=== PATIENT | female | born 1965 | race Two or more races ===

== ENCOUNTER → 2019-06-10 | Outpatient (CLI) | payer OTHER ==
[2019-06-10 11:10] LABS: Basophils # (auto) 0.1 10 ^3/uL (0-0.2); Basophils % (auto) 1.9 % (0.0-2.0); Eosinophils # (auto) 0.1 10 ^3/uL (0-0.8); Eosinophils % (auto) 2.5 % (0.0-7.0); Hematocrit 41.3 % (36.0-46.0); Hemoglobin 14.1 g/dL (12.2-16.2); Lymphocytes # (auto) 1.1 10 ^3/uL (0.4-5.4); Lymphocytes % (auto) 18.5 % (10.0-50.0); Mean Corpuscular Hgb Conc. 34.1 g/dL (32.0-36.0); Mean Corpuscular Volume 99.8 fL (80.0-100.0); Monocytes # (auto) 0.5 10 ^3/uL (0-1.3); Monocytes % (auto) 9.3 % (0.0-12.0); Neutrophils # (auto) 3.9 10 ^3/uL (1.6-8.6); Neutrophils % (auto) 67.8 % (37.0-80.0); Nucleated Red Blood Cells % 0.1 %; Platelet Count (auto) 295 10^3/uL (140-450); Red Blood Cells 4.14 10^6/uL (4.0-5.20); Red Cell Distribution Width 16.1 % (11.8-14.3); White Blood Cell 5.8 10^3/uL (4.4-10.8)
[2019-06-10 11:56] LABS: Free T4 (Free Thyroxine) 0.79 ng/dL (0.89-1.76)
[2019-06-10 11:57] LABS: Folate (Folic Acid) 15.07 ng/mL (5.38-24)
[2019-06-10 11:58] LABS: Albumin 3.8 g/dL (3.4-5.0); Calcium 9.2 mg/dL (8.5-10.1); Potassium 4.5 mmol/L (3.5-5.1)
[2019-06-10 12:05] LABS: BUN/Creatinine Ratio 7.9; Bilirubin, Total 0.7 mg/dL (0.2-1.0); CRP High Sensitivity 0.39 mg/dL (< 0.3); Phosphorus 2.9 mg/dL (2.5-4.90); Total Protein 8.3 g/dL (6.4-8.2)
[2019-06-10 12:09] LABS: Hepatitis B Surface Antibody Negative
[2019-06-10 12:47] LABS: Hepatitis A Total Antibody Positive
[2019-06-10 13:11] LABS: Hepatitis B Core Total AB Negative; Hepatitis B Surface Antigen Negative (Negative); Hepatitis C Antibody Negative (Negative)
== END | disposition home or self-care (01) ==
LOC: LAB 10:37
PROVIDERS: ATTEND Internal Medicine
DX: M79.10 Myalgia, unspecified site (principal); R20.2 Paresthesia of skin; R23.9 Unspecified skin changes
CPT/HCPCS: 36415; 80053; 80061; 80069; 82274; 82306; 82607; 82746; 83036; 84439; 84443; 85025; 85652; 86141; 86200; 86431; 86704; 86706; 86708; 86803; 87340

== ENCOUNTER 2019-07-26 15:14 | Inpatient (IN) | payer OTHER ==
[~2019-07-26] VITALS: Ht 175.3 cm; Wt 83.7 kg
[2019-07-26] MEDS ORDERED: SODIUM CHLORIDE 0.9% 1,000 ML IV SCH (15:42)
[2019-07-26] MEDS ORDERED: DEXTROSE (50%) 50ML SYRG IV PRN (15:45)
[2019-07-26] MEDS ORDERED: HYDROcodone-ACET 5/325MG TAB PO PRN (15:45)
[2019-07-26] MEDS ORDERED: HYDROcodone-ACET 10/325MG TAB PO ONE (15:45)
[2019-07-26] MEDS ORDERED: NITROGLYCERIN 0.4 MG SL TAB SL PRN ×2 (15:45→17:00)
[2019-07-26] MEDS ORDERED: ZOLPIDEM TARTRATE 5 MG TAB PO PRN (15:45)
[2019-07-26] MEDS ORDERED: ONDANSETRON HCL 4 MG/2 ML VIAL IV PRN (15:45)
[2019-07-26 16:52] LABS: Basophils # (auto) 0.1 10 ^3/uL (0-0.2); Basophils % (auto) 1.4 % (0.0-2.0); Eosinophils # (auto) 0.1 10 ^3/uL (0-0.8); Eosinophils % (auto) 1.2 % (0.0-7.0); Hematocrit 37.6 % (36.0-46.0); Hemoglobin 13.2 g/dL (12.2-16.2); Lymphocytes # (auto) 1.4 10 ^3/uL (0.4-5.4); Lymphocytes % (auto) 18.2 % (10.0-50.0); Mean Corpuscular Hemoglobin 33.5 pg (28.0-32.0); Mean Corpuscular Volume 95.7 fL (80.0-100.0); Monocytes # (auto) 0.9 10 ^3/uL (0-1.3); Monocytes % (auto) 11.8 % (0.0-12.0); Neutrophils # (auto) 5.2 10 ^3/uL (1.6-8.6); Neutrophils % (auto) 67.4 % (37.0-80.0); Platelet Count (auto) 296 10^3/uL (140-450); Red Blood Cells 3.93 10^6/uL (4.0-5.20); Red Cell Distribution Width 16.2 % (11.8-14.3); White Blood Cell 7.7 10^3/uL (4.4-10.8)
[2019-07-26] MEDS ORDERED: ACCU-CHEK COMFORT CURVE STRIP VI SCH (17:00)
[2019-07-26] MEDS ORDERED: InsuLIN REG 1unit/0.01ml Soln (100units/ml) SC SCH (17:00)
[2019-07-26] MEDS ORDERED: MORPHINE SULF INJ 2 MG/ML SYRINGE 1ML IV PRN (17:00)
[2019-07-26 17:05] LABS: INR 0.98 (0.9-1.15); Partial Thromboplastin Time 28.5 sec (23.64-32.05)
[2019-07-26 17:08] LABS: Albumin 3.8 g/dL (3.4-5.0); Calcium 9.3 mg/dL (8.5-10.1); Potassium 3.9 mmol/L (3.5-5.1)
[2019-07-26 17:11] LABS: BUN/Creatinine Ratio 14.3; Bilirubin, Total 0.6 mg/dL (0.2-1.0); Total Protein 7.8 g/dL (6.4-8.2)
[2019-07-26] MEDS: MORPHINE SULF INJ 2 MG/ML SYRINGE 1ML IV PRN ×2 (18:17→22:49)
[2019-07-26 18:30] VITALS: BP 116/75
[2019-07-26] MEDS ORDERED: APRE1TAB3 PO (18:45)
[2019-07-26] MEDS ORDERED: LEVO25TA49 PO (19:13)
[2019-07-26] MEDS ORDERED: SIMV-13 PO (19:13)
[2019-07-26] MEDS: HYDROcodone-ACET 5/325MG TAB PO PRN (19:50)
[2019-07-26 22:00] VITALS: BP 134/80
[2019-07-26] MEDS ORDERED: ATORVASTATIN 20 MG TAB PO SCH (22:00)
[2019-07-26 23:32] LABS: Urine Bacteria FEW /hpf (None Seen); Urine Blood Negative /uL (Negative); Urine Mucus FEW (None Seen); Urine Specific Gravity 1.024 (1.001-1.035); Urine WBC 2 /hpf (0 - 5)
[2019-07-27] MEDS: MORPHINE SULF INJ 2 MG/ML SYRINGE 1ML IV PRN (03:48)
[2019-07-27 05:00] VITALS: BP 91/51
[2019-07-27] MEDS: HYDROcodone-ACET 5/325MG TAB PO PRN ×2 (06:41→15:56)
[2019-07-27] MEDS ORDERED: LEVOTHYROXINE SODIUM 50 MCG TAB PO SCH (07:00)
[2019-07-27] MEDS: FAMOTIDINE (10MG/ML) 2ML VL IV SCH (08:09)
[2019-07-27 08:31] VITALS: BP 95/60
[2019-07-27] MEDS ORDERED: ADENOSINE 68 MG in GIVE UN-DILUTED 0 ML IV STA (08:33)
[2019-07-27] MEDS ORDERED: CLOPIDOGREL BISULFATE 75 MG TAB PO SCH (10:00)
[2019-07-27] MEDS ORDERED: ASPirin 81 mg TAB PO SCH (10:00)
[2019-07-27] MEDS ORDERED: DOCUSATE SOD 100 MG CAP PO SCH (10:00)
[2019-07-27] MEDS ORDERED: ENOXAPARIN SOD 40 MG/0.4 ML SYRINGE SC SCH (10:00)
[2019-07-27] MEDS ORDERED: KETOROLAC TROMETH 30 MG/ML 1ML VIAL IV ONE (11:00)
[2019-07-27] MEDS: SODIUM CHLORIDE 0.9% 1,000 ML IV SCH ×2 (11:00→18:57)
[2019-07-27 11:25] VITALS: BP 86/61
[2019-07-27] MEDS: POLYETHYLENE GLYCOL 17 GM PWDR PO SCH (14:10)
[2019-07-27] MEDS: HYDROmorphone HCL 2 MG/ML VL IV PRN ×2 (14:10→21:00)
[2019-07-27] MEDS ORDERED: ENOXAPARIN SOD 40 MG/0.4 ML SYRINGE SC ONE (14:30)
[2019-07-27 16:52] VITALS: BP 101/66
[2019-07-27] MEDS: ATORVASTATIN 20 MG TAB PO SCH (21:01)
[2019-07-27 21:20] VITALS: BP 103/71
[2019-07-28] VITALS (7 sets, daily range): BP systolic 91–109; BP diastolic 57–66
[2019-07-28] MEDS ORDERED: SODIUM CHLORIDE 0.9% 1,000 ML IV SCH (00:01)
[2019-07-28] MEDS: HYDROmorphone HCL 2 MG/ML VL IV PRN ×5 (02:09→22:15)
[2019-07-28] MEDS: SODIUM CHLORIDE 0.9% 1,000 ML IV SCH ×3 (02:10→19:13)
[2019-07-28] MEDS: LEVOTHYROXINE SODIUM 25 MCG TAB PO SCH (05:30)
[2019-07-28] MEDS: HYDROcodone-ACET 5/325MG TAB PO PRN ×2 (05:31→11:27)
[2019-07-28 06:33] LABS: Basophils # (auto) 0.1 10 ^3/uL (0-0.2); Basophils % (auto) 0.9 % (0.0-2.0); Eosinophils # (auto) 0.1 10 ^3/uL (0-0.8); Eosinophils % (auto) 1.2 % (0.0-7.0); Hematocrit 34.2 % (36.0-46.0); Hemoglobin 11.9 g/dL (12.2-16.2); Lymphocytes # (auto) 1.3 10 ^3/uL (0.4-5.4); Lymphocytes % (auto) 18.7 % (10.0-50.0); Mean Corpuscular Hemoglobin 33.7 pg (28.0-32.0); Mean Corpuscular Hgb Conc. 34.9 g/dL (32.0-36.0); Mean Corpuscular Volume 96.3 fL (80.0-100.0); Monocytes # (auto) 0.8 10 ^3/uL (0-1.3); Monocytes % (auto) 11.4 % (0.0-12.0); Neutrophils # (auto) 4.6 10 ^3/uL (1.6-8.6); Neutrophils % (auto) 67.8 % (37.0-80.0); Platelet Count (auto) 246 10^3/uL (140-450); Red Blood Cells 3.55 10^6/uL (4.0-5.20); Red Cell Distribution Width 16.3 % (11.8-14.3); White Blood Cell 6.8 10^3/uL (4.4-10.8)
[2019-07-28 06:51] LABS: BUN/Creatinine Ratio 12.5; Calcium 7.9 mg/dL (8.5-10.1); Potassium 3.9 mmol/L (3.5-5.1)
[2019-07-28 06:58] LABS: INR 0.98 (0.9-1.15); Partial Thromboplastin Time 29.1 sec (23.64-32.05)
[2019-07-28] MEDS ORDERED: IOHEXOL 350 MG/ML 100ML IJ ONE (08:48)
[2019-07-28] MEDS ORDERED: LIDOCAINE 2%HCL (LOCAL ANESTH.) INJ 20ML MDV ONE (08:48)
[2019-07-28] MEDS ORDERED: HYDROmorphone HCL 2 MG/ML VL ONE (09:28)
[2019-07-28] MEDS ORDERED: ANGIOMAX 250 MG VIAL IV ONE (09:40)
[2019-07-28] MEDS ORDERED: MIDAZOLAM HCL 1MG/1ML-2 ML VIAL ONE (09:40)
[2019-07-28] MEDS ORDERED: SODIUM CHL 0.9% 0 ML ONE (09:40)
[2019-07-28] MEDS ORDERED: HEPARIN SODIUM (PORCINE) 5000 UNITS/ML 1ML VIAL ONE (09:45)
[2019-07-28] MEDS ORDERED: VERAPAMIL 2.5MG/ML INJ 2ML VIAL IV ONE (09:45)
[2019-07-28] MEDS ORDERED: ENOXAPARIN SOD 40 MG/0.4 ML SYRINGE SC SCH (10:00)
[2019-07-28] MEDS: FAMOTIDINE (10MG/ML) 2ML VL IV SCH (11:27)
[2019-07-28] MEDS: POLYETHYLENE GLYCOL 17 GM PWDR PO SCH (11:28)
[2019-07-28] MEDS: HYDROcodone-ACET 7.5/325MG TAB PO PRN (20:34)
[2019-07-28] MEDS: ATORVASTATIN 20 MG TAB PO SCH (22:14)
[2019-07-29] MEDS: HYDROmorphone HCL 2 MG/ML VL IV PRN ×10 (02:04→22:17)
[2019-07-29] MEDS: SODIUM CHLORIDE 0.9% 1,000 ML IV SCH ×3 (03:09→22:16)
[2019-07-29] MEDS: HYDROcodone-ACET 7.5/325MG TAB PO PRN (03:54)
[2019-07-29 05:27] VITALS: BP 102/66
[2019-07-29] MEDS: LEVOTHYROXINE SODIUM 25 MCG TAB PO SCH (06:28)
[2019-07-29] MEDS ORDERED: ROPIVACAINE 0.5% (5MG/ML) 20ML AMPULE IJ ONE (08:13)
[2019-07-29] MEDS ORDERED: ceFAZolin 1GM/50ML 50 ML IV ONE (08:13)
[2019-07-29] MEDS ORDERED: SUCCINYLCHOLINE CHLORIDE 20 MG/ML 10ML VIAL IV ONE (08:20)
[2019-07-29] MEDS ORDERED: LIDOCAINE 1% HCL (LOCAL ANESTH.) INJ 20ML MDV ONE (08:20)
[2019-07-29] MEDS ORDERED: MIDAZOLAM HCL 1MG/1ML-2 ML VIAL ONE (08:23)
[2019-07-29] MEDS ORDERED: PROPOFOL 10 MG/ML 20 ML IV ONE (08:24)
[2019-07-29] MEDS ORDERED: ROCURONIUM 10MG/ML 10ML VIAL IV ONE (08:25)
[2019-07-29] MEDS ORDERED: METOCLOPRAMIDE HCL 5MG/ml INJ 2ml VIAL ONE (08:27)
[2019-07-29] MEDS ORDERED: fentaNYL CITRATE 100 MCG/2 ML VL ONE (08:39)
[2019-07-29] MEDS ORDERED: HYDROmorphone HCL 2 MG/ML VL IV PRN (08:45)
[2019-07-29] MEDS ORDERED: ePHEDrine SULFATE 50 MG/ML AMP IV PRN (08:45)
[2019-07-29] MEDS ORDERED: ONDANSETRON HCL 4 MG/2 ML VIAL IV PRN ×2 (08:45→10:30)
[2019-07-29] MEDS ORDERED: NALOXONE HCL 0.4 MG/ML VIAL IV PRN (08:45)
[2019-07-29 08:55] VITALS: BP 96/62
[2019-07-29] MEDS ORDERED: HYDROcodone-ACET 10/325MG TAB PO PRN (10:30)
[2019-07-29] MEDS: FAMOTIDINE (10MG/ML) 2ML VL IV SCH (12:58)
[2019-07-29] MEDS: POLYETHYLENE GLYCOL 17 GM PWDR PO SCH (12:58)
[2019-07-29 13:00] VITALS: BP 96/62
[2019-07-29] MEDS: ceFAZolin 1GM/50ML 50 ML IV SCH ×2 (14:05→22:16)
[2019-07-29 17:00] VITALS: BP 105/67
[2019-07-29] MEDS: HYDROcodone-ACET 5/325MG TAB PO PRN ×2 (18:19→22:58)
[2019-07-29 21:46] VITALS: BP 108/63
[2019-07-29] MEDS: ATORVASTATIN 20 MG TAB PO SCH (22:17)
[2019-07-30] MEDS: HYDROmorphone HCL 2 MG/ML VL IV PRN ×7 (00:10→16:25)
[2019-07-30] MEDS: SODIUM CHLORIDE 0.9% 1,000 ML IV SCH ×2 (03:00→08:41)
[2019-07-30] MEDS: HYDROcodone-ACET 5/325MG TAB PO PRN ×2 (03:05→13:23)
[2019-07-30 04:59] VITALS: BP 101/54
[2019-07-30] MEDS: LEVOTHYROXINE SODIUM 25 MCG TAB PO SCH (06:04)
[2019-07-30] MEDS: ceFAZolin 1GM/50ML 50 ML IV SCH ×2 (06:04→14:56)
[2019-07-30 07:22] LABS: Basophils # (auto) 0.1 10 ^3/uL (0-0.2); Basophils % (auto) 0.6 % (0.0-2.0); Eosinophils # (auto) 0 10 ^3/uL (0-0.8); Eosinophils % (auto) 0.3 % (0.0-7.0); Hematocrit 35.5 % (36.0-46.0); Hemoglobin 12.5 g/dL (12.2-16.2); Lymphocytes # (auto) 0.9 10 ^3/uL (0.4-5.4); Lymphocytes % (auto) 9.5 % (10.0-50.0); Mean Corpuscular Hgb Conc. 35.1 g/dL (32.0-36.0); Mean Corpuscular Volume 96.9 fL (80.0-100.0); Monocytes # (auto) 1.3 10 ^3/uL (0-1.3); Neutrophils # (auto) 7.6 10 ^3/uL (1.6-8.6); Neutrophils % (auto) 76.6 % (37.0-80.0); Nucleated Red Blood Cells % 0.1 %; Platelet Count (auto) 270 10^3/uL (140-450); Red Blood Cells 3.67 10^6/uL (4.0-5.20); Red Cell Distribution Width 15.9 % (11.8-14.3); White Blood Cell 9.9 10^3/uL (4.4-10.8)
[2019-07-30] MEDS: FAMOTIDINE (10MG/ML) 2ML VL IV SCH (08:40)
[2019-07-30] MEDS: POLYETHYLENE GLYCOL 17 GM PWDR PO SCH (08:41)
[2019-07-30 09:00] VITALS: BP 105/66
[2019-07-30 13:00] VITALS: BP 107/68
[2019-07-30 16:27] VITALS: BP 117/65
[2019-07-30 16:46] VITALS: BP 107/68
== END 2019-07-30 18:12 | disposition home or self-care (01) | DRG 494 ==
LOC: ER 15:14 → WEST WING 15:15 → TELE-WESTW 07-27 21:28
PROVIDERS: ADMIT Nurse Practitioner Acute Care; ATTEND Internal Medicine
PROC: 4A023N7 Measurement of Cardiac Sampling and Pressure, Left Heart, Percutaneous Approach (ICD-10-PCS; 2019-07-28)
PROC: B2111ZZ Fluoroscopy of Multiple Coronary Arteries using Low Osmolar Contrast (ICD-10-PCS; 2019-07-28)
PROC: B2151ZZ Fluoroscopy of Left Heart using Low Osmolar Contrast (ICD-10-PCS; 2019-07-28)
PROC: 0MQQ0ZZ Repair Right Ankle Bursa and Ligament, Open Approach (ICD-10-PCS; 2019-07-29)
PROC: 0SSF0ZZ Reposition Right Ankle Joint, Open Approach (ICD-10-PCS; 2019-07-29)
PROC: 0QSJ04Z Reposition Right Fibula with Internal Fixation Device, Open Approach (ICD-10-PCS; principal; 2019-07-29 08:25)
DX: S82.61XA Displaced fracture of lateral malleolus of right fibula, initial encounter for closed fracture (principal); L40.9 Psoriasis, unspecified; E78.5 Hyperlipidemia, unspecified; E03.9 Hypothyroidism, unspecified; Z87.891 Personal history of nicotine dependence; X50.1XXA Overexertion from prolonged static or awkward postures, initial encounter; Y93.89 Activity, other specified; Y92.89 Other specified places as the place of occurrence of the external cause; Y99.8 Other external cause status
CPT/HCPCS: 36415; 71045; 73600; 76001; 78452; 80048; 80053; 81001; 81025; 85025; 85610; 85730; 86850; 86900; 86901; 93017; 93306; 93458; 97163; 99152; 99153; C1713; G0378; J0153; J0330; J0690; J1885; J2001; J2250; J2704; J3490

== ENCOUNTER → 2020-03-06 | Outpatient (CLI) | payer OTHER ==
[~2020-03-06] MED LIST: APRE1TAB3 PO; LEVO25TA49 PO; SIMV-13 PO
[2020-03-06 08:44] LABS: Basophils # (auto) 0 10 ^3/uL (0-0.2); Basophils % (auto) 0.7 % (0.0-2.0); Eosinophils # (auto) 0 10 ^3/uL (0-0.8); Eosinophils % (auto) 0.4 % (0.0-7.0); Hematocrit 41.4 % (36.0-46.0); Hemoglobin 14.2 g/dL (12.2-16.2); Lymphocytes # (auto) 1.4 10 ^3/uL (0.4-5.4); Lymphocytes % (auto) 29.4 % (10.0-50.0); Mean Corpuscular Hemoglobin 32.2 pg (28.0-32.0); Mean Corpuscular Hgb Conc. 34.3 g/dL (32.0-36.0); Monocytes # (auto) 0.6 10 ^3/uL (0-1.3); Neutrophils # (auto) 2.7 10 ^3/uL (1.6-8.6); Neutrophils % (auto) 56.5 % (37.0-80.0); Nucleated Red Blood Cells % 0.2 %; Platelet Count (auto) 222 10^3/uL (140-450); Red Cell Distribution Width 16.3 % (11.8-14.3); White Blood Cell 4.8 10^3/uL (4.4-10.8)
[2020-03-06 09:46] LABS: Albumin 3.8 g/dL (3.4-5.0); BUN/Creatinine Ratio 8.2; Calcium 8.9 mg/dL (8.5-10.1); Potassium 4.7 mmol/L (3.5-5.1)
[2020-03-06 09:50] LABS: Bilirubin, Total 0.5 mg/dL (0.2-1.0); Total Protein 8.1 g/dL (6.4-8.2)
== END | disposition home or self-care (01) ==
LOC: LAB 08:22
PROVIDERS: ATTEND Internal Medicine
DX: E03.9 Hypothyroidism, unspecified (principal); E78.5 Hyperlipidemia, unspecified
CPT/HCPCS: 36415; 80053; 80061; 84439; 84443; 85025

== ENCOUNTER → 2020-05-19 | Outpatient (CLI) | payer OTHER ==
[2020-05-19 13:51] LABS: Basophils # (auto) 0.1 10 ^3/uL (0-0.2); Basophils % (auto) 0.9 % (0.0-2.0); Eosinophils # (auto) 0.1 10 ^3/uL (0-0.8); Eosinophils % (auto) 1.6 % (0.0-7.0); Hemoglobin 13.7 g/dL (12.2-16.2); Lymphocytes # (auto) 1.2 10 ^3/uL (0.4-5.4); Lymphocytes % (auto) 21.1 % (10.0-50.0); Mean Corpuscular Hgb Conc. 35.9 g/dL (32.0-36.0); Mean Corpuscular Volume 94.6 fL (80.0-100.0); Monocytes # (auto) 0.6 10 ^3/uL (0-1.3); Monocytes % (auto) 10.7 % (0.0-12.0); Neutrophils # (auto) 3.8 10 ^3/uL (1.6-8.6); Neutrophils % (auto) 65.7 % (37.0-80.0); Platelet Count (auto) 306 10^3/uL (140-450); Red Blood Cells 4.02 10^6/uL (4.0-5.20); Red Cell Distribution Width 15.9 % (11.8-14.3); White Blood Cell 5.9 10^3/uL (4.4-10.8)
[2020-05-19 14:32] LABS: Albumin 4.1 g/dL (3.4-5.0); Potassium 3.9 mmol/L (3.5-5.1)
[2020-05-19 14:35] LABS: Bilirubin, Total 0.6 mg/dL (0.2-1.0); Total Protein 8.6 g/dL (6.4-8.2)
== END | disposition home or self-care (01) ==
LOC: LAB 13:33
PROVIDERS: ATTEND Internal Medicine
DX: E03.9 Hypothyroidism, unspecified (principal)
CPT/HCPCS: 36415; 80053; 82274; 84439; 84443; 85025

== ENCOUNTER → 2020-08-04 | Outpatient (CLI) | payer OTHER ==
[~2020-08-04] MED LIST changes: -APRE1TAB3 PO; +APRE1TAB4 PO
== END | disposition home or self-care (01) ==
LOC: LAB 11:45
PROVIDERS: ATTEND Internal Medicine
DX: E03.9 Hypothyroidism, unspecified (principal)
CPT/HCPCS: 36415; 84439; 84443

== ENCOUNTER → 2020-11-03 | Outpatient (CLI) | payer OTHER ==
[2020-11-03 16:47] LABS: Basophils # (auto) 0.1 10 ^3/uL (0-0.2); Basophils % (auto) 1.2 % (0.0-2.0); Eosinophils # (auto) 0.1 10 ^3/uL (0-0.8); Eosinophils % (auto) 1.3 % (0.0-7.0); Hematocrit 37.8 % (36.0-46.0); Hemoglobin 13.5 g/dL (12.2-16.2); Lymphocytes # (auto) 2.5 10 ^3/uL (0.4-5.4); Lymphocytes % (auto) 27.4 % (10.0-50.0); Mean Corpuscular Hemoglobin 32.7 pg (28.0-32.0); Mean Corpuscular Hgb Conc. 35.8 g/dL (32.0-36.0); Mean Corpuscular Volume 91.3 fL (80.0-100.0); Monocytes # (auto) 0.9 10 ^3/uL (0-1.3); Monocytes % (auto) 10.1 % (0.0-12.0); Neutrophils # (auto) 5.5 10 ^3/uL (1.6-8.6); Nucleated Red Blood Cells % 0.4 %; Red Blood Cells 4.14 10^6/uL (4.0-5.20); Red Cell Distribution Width 17.7 % (11.8-14.3); White Blood Cell 9.2 10^3/uL (4.4-10.8)
[2020-11-03 17:06] LABS: Albumin 4.1 g/dL (3.4-5.0); BUN/Creatinine Ratio 24.4; Calcium 8.4 mg/dL (8.5-10.1)
[2020-11-03 17:09] LABS: Bilirubin, Total 0.7 mg/dL (0.2-1.0); Total Protein 8.2 g/dL (6.4-8.2)
== END | disposition home or self-care (01) ==
LOC: LAB 16:34
PROVIDERS: ATTEND Internal Medicine
DX: E03.9 Hypothyroidism, unspecified (principal)
CPT/HCPCS: 36415; 80053; 84439; 84443; 85025

== ENCOUNTER → 2021-04-12 | Outpatient (CLI) | payer OTHER ==
[2021-04-12 14:00] LABS: Basophils # (auto) 0.1 10 ^3/uL (0-0.2); Basophils % (auto) 0.8 % (0.0-2.0); Eosinophils # (auto) 0.1 10 ^3/uL (0-0.8); Hemoglobin 11.6 g/dL (12.2-16.2); Lymphocytes # (auto) 1.9 10 ^3/uL (0.4-5.4); Lymphocytes % (auto) 26.2 % (10.0-50.0); Mean Corpuscular Hemoglobin 27.1 pg (28.0-32.0); Mean Corpuscular Volume 79.9 fL (80.0-100.0); Monocytes # (auto) 0.7 10 ^3/uL (0-1.3); Monocytes % (auto) 9.9 % (0.0-12.0); Neutrophils # (auto) 4.4 10 ^3/uL (1.6-8.6); Neutrophils % (auto) 62.1 % (37.0-80.0); Red Blood Cells 4.26 10^6/uL (4.0-5.20); Red Cell Distribution Width 18.8 % (11.8-14.3); White Blood Cell 7.1 10^3/uL (4.4-10.8)
[2021-04-12 15:06] LABS: Calcium 9.1 mg/dL (8.5-10.1); Potassium 4.5 mmol/L (3.5-5.1)
[2021-04-12 15:12] LABS: Albumin 4.1 g/dL (3.4-5.0); BUN/Creatinine Ratio 13.3; Bilirubin, Total 0.6 mg/dL (0.2-1.0); Total Protein 7.8 g/dL (6.4-8.2)
== END | disposition home or self-care (01) ==
LOC: LAB 13:43
PROVIDERS: ATTEND Student in an Organized Health Care Education/Training Program
DX: Z00.00 Encounter for general adult medical examination without abnormal findings (principal); E03.9 Hypothyroidism, unspecified
CPT/HCPCS: 36415; 80053; 80061; 83036; 84443; 85025

== ENCOUNTER → 2021-04-19 | Outpatient (CLI) | payer OTHER | END | disposition home or self-care (01) | LOC: LAB 08:07 | PROVIDERS: ATTEND Student in an Organized Health Care Education/Training Program | DX: Z00.00 Encounter for general adult medical examination without abnormal findings (principal); E03.9 Hypothyroidism, unspecified | CPT/HCPCS: 82274 ==

== ENCOUNTER → 2021-07-18 | Day surgery (SDC) | payer OTHER ==
[2021-07-16 11:53] LABS: Basophils # (auto) 0 10 ^3/uL (0-0.2); Basophils % (auto) 0.7 % (0.0-2.0); Eosinophils # (auto) 0.1 10 ^3/uL (0-0.8); Eosinophils % (auto) 0.8 % (0.0-7.0); Hematocrit 37.2 % (36.0-46.0); Hemoglobin 12.9 g/dL (12.2-16.2); Lymphocytes # (auto) 1.4 10 ^3/uL (0.4-5.4); Lymphocytes % (auto) 22.6 % (10.0-50.0); Mean Corpuscular Hemoglobin 32.9 pg (28.0-32.0); Mean Corpuscular Hgb Conc. 34.8 g/dL (32.0-36.0); Mean Corpuscular Volume 94.6 fL (80.0-100.0); Monocytes # (auto) 0.5 10 ^3/uL (0-1.3); Monocytes % (auto) 8.7 % (0.0-12.0); Neutrophils # (auto) 4.2 10 ^3/uL (1.6-8.6); Neutrophils % (auto) 67.2 % (37.0-80.0); Nucleated Red Blood Cells % 0.1 %; Red Blood Cells 3.94 10^6/uL (4.0-5.20); Red Cell Distribution Width 22.1 % (11.8-14.3); White Blood Cell 6.2 10^3/uL (4.4-10.8)
[2021-07-16 11:58] LABS: Urine Bacteria FEW /hpf (None Seen); Urine Blood Negative /uL (Negative); Urine Mucus FEW (None Seen); Urine Specific Gravity 1.024 (1.001-1.035); Urine WBC 5 /hpf (0 - 5)
[2021-07-16 12:17] LABS: INR 0.99 (0.9-1.15); Partial Thromboplastin Time 29.4 sec (23.6-33.0)
[2021-07-16 12:30] LABS: Potassium 3.7 mmol/L (3.5-5.1)
[2021-07-16 12:49] LABS: Albumin 4.1 g/dL (3.4-5.0); BUN/Creatinine Ratio 10.9; Bilirubin, Total 1.1 mg/dL (0.2-1.0); Calcium 9.5 mg/dL (8.5-10.1); Total Protein 7.8 g/dL (6.4-8.2)
[~2021-07-18] VITALS: Ht 175.3 cm; Wt 75.7 kg
[~2021-07-18] MED LIST changes: +ACE3T PO; +ADAL40KI2 SC; -APRE1TAB4 PO; +BUPIVACAINE W/ EPINEPH 0.25% INJ 50ML MDV ONE; +DexAMETHasone SOD PHOS 10MG/1ML VIAL INJ ONE; +HYDROmorphone HCL 2 MG/ML VL IV PRN; +LABETALOL HCL 5 MG/ML 4ML SYRINGE IV PRN; +MEPERIDINE HCL (25 MG/ML) 1ML VIAL ONE; +METH2.5T PO; +MIDAZOLAM HCL 2MG/2ML 2ml VIAL (1mg/ml) IV PRN; +MIDAZOLAM HCL 2MG/2ML 2ml VIAL (1mg/ml) ONE; +MORPHINE SULFATE 4 MG/ML SYR/VIAL IV PRN; +ONDANSETRON HCL 4 MG/2 ML VIAL IV ONE; +ONDANSETRON HCL 4 MG/2 ML VIAL IV PRN; +PHENYLEPHRINE HCL 10 MG/ML VL IV ONE; +PROPOFOL 10 MG/ML 20 ML IV ONE; +ceFAZolin 1GM/50ML 100 ML IV ONE; +ePHEDrine SULFATE 50 MG/ML AMP IV PRN; +fentaNYL CITRATE 100 MCG/2 ML VL ONE
[2021-07-18 10:15] VITALS: BP 118/77
== END | disposition home or self-care (01) ==
LOC: SUR 06:15
PROVIDERS: ATTEND Surgery
PROC: 0WUF07Z Supplement Abdominal Wall with Autologous Tissue Substitute, Open Approach (ICD-10-PCS; principal; 2021-07-18 09:01)
DX: K42.0 Umbilical hernia with obstruction, without gangrene (principal); E78.5 Hyperlipidemia, unspecified; E03.9 Hypothyroidism, unspecified; F41.9 Anxiety disorder, unspecified; Z98.890 Other specified postprocedural states; Z79.890 Hormone replacement therapy; Z79.899 Other long term (current) drug therapy; Z82.49 Family history of ischemic heart disease and other diseases of the circulatory system; Z20.822 Contact with and (suspected) exposure to COVID-19
CPT/HCPCS: 36415; 49587; 80053; 81001; 85025; 85610; 85730; 86850; 86900; 86901; 88302; J0690; J1100; J2175; J2250; J2370; J2405; J2704; J3010; Q4140; U0003

== ENCOUNTER → 2022-06-18 | Outpatient (CLI) | payer OTHER ==
[~2022-06-18] MED LIST changes: -BUPIVACAINE W/ EPINEPH 0.25% INJ 50ML MDV ONE; -DexAMETHasone SOD PHOS 10MG/1ML VIAL INJ ONE; -HYDROmorphone HCL 2 MG/ML VL IV PRN; -LABETALOL HCL 5 MG/ML 4ML SYRINGE IV PRN; -MEPERIDINE HCL (25 MG/ML) 1ML VIAL ONE; -MIDAZOLAM HCL 2MG/2ML 2ml VIAL (1mg/ml) IV PRN; -MIDAZOLAM HCL 2MG/2ML 2ml VIAL (1mg/ml) ONE; -MORPHINE SULFATE 4 MG/ML SYR/VIAL IV PRN; -ONDANSETRON HCL 4 MG/2 ML VIAL IV ONE; -ONDANSETRON HCL 4 MG/2 ML VIAL IV PRN; -PHENYLEPHRINE HCL 10 MG/ML VL IV ONE; -PROPOFOL 10 MG/ML 20 ML IV ONE; -ceFAZolin 1GM/50ML 100 ML IV ONE; -ePHEDrine SULFATE 50 MG/ML AMP IV PRN; -fentaNYL CITRATE 100 MCG/2 ML VL ONE
[2022-06-18 09:31] LABS: Basophils # (auto) 0.1 10 ^3/uL (0-0.2); Basophils % (auto) 1.3 % (0.0-2.0); Eosinophils # (auto) 0.2 10 ^3/uL (0-0.8); Eosinophils % (auto) 2.5 % (0.0-7.0); Hematocrit 39.7 % (36.0-46.0); Hemoglobin 13.9 g/dL (12.2-16.2); Lymphocytes # (auto) 1.8 10 ^3/uL (0.4-5.4); Lymphocytes % (auto) 25.7 % (10.0-50.0); Mean Corpuscular Hemoglobin 33.6 pg (28.0-32.0); Mean Corpuscular Hgb Conc. 35.1 g/dL (32.0-36.0); Mean Corpuscular Volume 95.6 fL (80.0-100.0); Monocytes # (auto) 0.6 10 ^3/uL (0-1.3); Monocytes % (auto) 9.2 % (0.0-12.0); Neutrophils # (auto) 4.2 10 ^3/uL (1.6-8.6); Neutrophils % (auto) 61.3 % (37.0-80.0); Nucleated Red Blood Cells % 0.1 %; Red Blood Cells 4.15 10^6/uL (4.0-5.20); Red Cell Distribution Width 16.5 % (11.8-14.3); White Blood Cell 6.8 10^3/uL (4.4-10.8)
[2022-06-18 10:25] LABS: Albumin 4.1 g/dL (3.4-5.0); BUN/Creatinine Ratio 21.3; Bilirubin, Total 0.9 mg/dL (0.2-1.0); Potassium 4.7 mmol/L (3.5-5.1); Total Protein 7.5 g/dL (6.4-8.2)
== END | disposition home or self-care (01) ==
LOC: LAB 09:06
PROVIDERS: ATTEND Student in an Organized Health Care Education/Training Program
DX: E78.5 Hyperlipidemia, unspecified (principal); E03.9 Hypothyroidism, unspecified
CPT/HCPCS: 36415; 80053; 80061; 82274; 85025

== ENCOUNTER → 2023-08-19 | Outpatient (CLI) | payer OTHER ==
[~2023-08-19] MED LIST changes: +LEVO25TA2 PO; -LEVO25TA49 PO; -SIMV-13 PO; +SIMV40TA18 PO
[2023-08-19 09:51] LABS: Basophils # (auto) 0.1 10 ^3/uL (0-0.2); Eosinophils # (auto) 0.2 10 ^3/uL (0-0.8); Eosinophils % (auto) 2.1 % (0.0-7.0); Hematocrit 40.6 % (36.0-46.0); Hemoglobin 13.8 g/dL (12.2-16.2); Lymphocytes # (auto) 1.7 10 ^3/uL (0.4-5.4); Lymphocytes % (auto) 22.6 % (10.0-50.0); Mean Corpuscular Hemoglobin 30.4 pg (28.0-32.0); Mean Corpuscular Volume 89.3 fL (80.0-100.0); Monocytes # (auto) 0.7 10 ^3/uL (0-1.3); Monocytes % (auto) 8.7 % (0.0-12.0); Neutrophils % (auto) 65.6 % (37.0-80.0); Red Blood Cells 4.54 10^6/uL (4.0-5.20); Red Cell Distribution Width 15.9 % (11.8-14.3); White Blood Cell 7.7 10^3/uL (4.4-10.8)
[2023-08-19 10:20] LABS: Alanine Aminotransferase 23 U/L (7-40); Albumin 4.6 g/dL (3.2-4.8); Alkaline Phosphatase 91 U/L (46-116); Anion Gap 4 (5-15); Aspartate Aminotransferase 18 U/L (13-40); BUN/Creatinine Ratio 13.8 (10.0-20.0); Blood Urea Nitrogen 12 mg/dL (9-23); Calcium 9.9 mg/dL (8.5-10.1); Carbon Dioxide 29 mmol/L (20-30); Chloride 108 mmol/L (98-107); Cholesterol 158 mg/dL (< 200); Glucose 97 mg/dL (74-106); HDL Cholesterol 51 mg/dL (40-59); LDL Cholesterol 83 mg/dL (< 100); Potassium 4.2 mmol/L (3.5-5.1); Sodium 141 mmol/L (136-145); Triglycerides 142 mg/dL (< 150)
[2023-08-19 10:21] LABS: Bilirubin, Total 0.9 mg/dL (0.2-1.0); Total Protein 7.7 g/dL (5.7-8.2)
== END | disposition home or self-care (01) ==
LOC: LAB 09:32
PROVIDERS: ATTEND Student in an Organized Health Care Education/Training Program
DX: Z12.11 Encounter for screening for malignant neoplasm of colon (principal); E78.5 Hyperlipidemia, unspecified; F41.9 Anxiety disorder, unspecified
CPT/HCPCS: 36415; 80053; 80061; 82274; 85025

== ENCOUNTER 2024-01-04 15:51 | Emergency (ER) | payer OTHER ==
[~2024-01-04] VITALS: Ht 175.3 cm; Wt 70.0 kg
[2024-01-04 16:50] LABS: Basophils # (auto) 0.1 10 ^3/uL (0-0.2); Basophils % (auto) 0.9 % (0.0-2.0); Eosinophils # (auto) 0.1 10 ^3/uL (0-0.8); Eosinophils % (auto) 1.4 % (0.0-7.0); Hemoglobin 12.6 g/dL (12.2-16.2); Lymphocytes # (auto) 1.1 10 ^3/uL (0.4-5.4); Lymphocytes % (auto) 12.1 % (10.0-50.0); Mean Corpuscular Hemoglobin 32.1 pg (28.0-32.0); Mean Corpuscular Hgb Conc. 35.1 g/dL (32.0-36.0); Mean Corpuscular Volume 91.5 fL (80.0-100.0); Monocytes # (auto) 1.1 10 ^3/uL (0-1.3); Neutrophils # (auto) 6.9 10 ^3/uL (1.6-8.6); Neutrophils % (auto) 73.6 % (37.0-80.0); Platelet Count (auto) 276 10^3/uL (140-450); Red Blood Cells 3.93 10^6/uL (4.0-5.20); Red Cell Distribution Width 15.9 % (11.8-14.3); White Blood Cell 9.4 10^3/uL (4.4-10.8)
[2024-01-04 17:11] LABS: Alanine Aminotransferase 19 U/L (7-40); Albumin 4.4 g/dL (3.2-4.8); Alkaline Phosphatase 101 U/L (46-116); Anion Gap 4 (5-15); Aspartate Aminotransferase 17 U/L (13-40); BUN/Creatinine Ratio 16.9 (10.0-20.0); Blood Urea Nitrogen 14 mg/dL (9-23); Calcium 9.3 mg/dL (8.7-10.4); Carbon Dioxide 29 mmol/L (20-31); Chloride 107 mmol/L (98-107); Glucose 92 mg/dL (74-106); Lipase 34 U/L (12-53); Potassium 3.7 mmol/L (3.5-5.1); Sodium 140 mmol/L (136-145)
[2024-01-04 17:12] LABS: Bilirubin, Total 0.6 mg/dL (0.2-1.0); Total Protein 6.9 g/dL (5.7-8.2)
[2024-01-04] MEDS: SODIUM CHLORIDE 0.9% 1,000 ML IVB ONE (18:20)
[2024-01-04] MEDS: METOCLOPRAMIDE HCL 5MG/ml INJ 2ml VIAL IV ONE (18:20)
[2024-01-04] MEDS: ONDANSETRON HCL 4 MG/2 ML VIAL IV ONE (18:20)
[2024-01-04] MEDS: KETOROLAC TROMETH 30 MG/ML 1ML VIAL IV ONE (18:21)
[2024-01-04] MEDS: MORPHINE SULFATE 4 MG/ML SYR/VIAL IV ONE ×2 (18:21→22:11)
[2024-01-04 21:25] LABS: Urine Bacteria None Seen /hpf (None Seen)
[2024-01-04] MEDS ORDERED: HYDR-4902 PO (21:38)
[2024-01-04] MEDS ORDERED: FAMO20TA10 PO (21:38)
[2024-01-04 22:00] VITALS: TEMP 98.2; O2SAT 98
[2024-01-04 22:11] VITALS: BP 112/58; PULSE 69; RESP 13
[2024-01-04 22:31] LABS: Urine Blood Negative /uL (Negative); Urine Clarity Turbid (Clear); Urine Color Yellow (Yellow); Urine Protein, UAD 1+ (Negative); Urine Specific Gravity 1.036 (1.001-1.035); Urine Urobilinogen 8 mg/dL (Negative); Urine WBC 125 /hpf (0 - 5)
== END 2024-01-04 22:27 | disposition home or self-care (01) ==
LOC: ER 15:51
DX: K80.50 Calculus of bile duct without cholangitis or cholecystitis without obstruction (principal); Z79.890 Hormone replacement therapy; Z79.899 Other long term (current) drug therapy; Z85.850 Personal history of malignant neoplasm of thyroid
CPT/HCPCS: 36415; 76705; 80053; 81001; 83690; 84484; 85025; 93005; 96361; 96374; 96375; 96376; 99285; J1885; J2270; J2405; J7030

== ENCOUNTER 2024-07-19 03:37 | Inpatient (IN) | payer MEDICAID, OTHER ==
[2024-07-19] VITALS (27 sets, daily range): BP systolic 92–112; BP diastolic 60–72; PULSE 73–91; RESP 16–25; TEMP 98.5–99.2; O2SAT 94–100
[~2024-07-19] VITALS: Ht 175.3 cm; Wt 70.9 kg
[~2024-07-19 03:37] MED LIST changes: +FAMO20TA10 PO; +HYDR-4902 PO
--- NOTE | 2024-07-19 03:57 | ED.PDOC ---
History of Present Illness HPI Comments 59-year-old female with PMHx Gallstones, Hypothyroidism presents with a chief complaint of abdominal pain x onset 0100 this morning. Patient reports that her pain is 'all over" and started in her epigastric region. Pain radiates to her back. Patient mentions that the pain started spontaneously at 0100 and has been a consistent 10/10 pain. Patient denies feeling pain like this before in the past. Patient mentions that her only abdominal surgery was a hernia repair. Patient takes no medications at home regularly. Patient states she has not had pain over the past few days, she was feeling well, at her baseline before she went to sleep last night. Time Seen by MD: 03:47 Primary Care Provider: NONE NEW DR? Reviewed Notes: Medications, Allergies Allergies: Coded Allergies: NO KNOWN ALLERGIES (Unverified , 07/26/19) Home Meds Active Scripts Famotidine (PEPCID TABLET) 20 Mg Tb, 1 TAB PO BID, #20 TAB 0 Refills Prov:JANIE HOPE MD 01/04/24 Hydrocodone-Acetaminophen (Hydrocodone Bitartrate/AC 5-325 mg) 1 Tab Tab, 1 TAB PO BID PRN, #10 TAB 0 Refills Prov:JANIE HOPE MD 01/04/24 Acetaminophen W/ Codeine (Tylenol W/Cod #3) 1 Tab Tb, 1 TAB PO Q6HPRN PRN for 10 Days, #40 TAB Prov:GERDA SALMON [employer]ER 07/18/21 Reported Medications Adalimumab (Humira Pen) 40 Mg/0.8 Ml Inj, 40 MG SC 2xM, INJ 07/17/21 Methotrexate (Methotrexate) 2.5 Mg Tab, 2.5 MG PO, TAB 07/17/21 Simvastatin (Simvastatin) 40 Mg Tab, 40 MG PO DAILY for 30 Days 07/26/19 Levothyroxine Sodium (Synthroid) 25 Mcg Tab, 50 MCG PO DAILY, TAB 07/26/19 Information Source: Patient Mode of Arrival: Ambulatory Severity: Moderate Timing: Hours Duration: Since onset Prehospital treatment: None Vital Signs Vital Signs Date Time Temp Pulse Resp B/P (MAP) Pulse Ox O2 Delivery O2 Flow Rate FiO2 07/19/24 06:21 90 16 94 Room Air* 0 21 07/19/24 06:16 124/88 (100) 07/19/24 03:46 98.6 98.6 Physical Exam General: Awake, alert and oriented. Patient appears to be in acute pain. She was moaning loudly. Skin: Skin in warm, dry and intact. Appropriate color for ethnicity. HEENT: The head is normocephalic and atraumatic. Conjunctivae are clear without exudates or hemorrhage. Sclera is non-icteric. EOM are intact. No signs of nystagmus. Eyelids are normal in appearance without swelling or lesions. Oral mucosa is pink and moist Neck: The neck is supple with normal range of motion. No JVD. Cardiac: Heart rate and rhythm are normal. No murmurs, gallops, or rubs are auscultated. Respiratory: No signs of respiratory distress. Lung sounds are clear in all lobes bilaterally without rales, rhonchi, or wheezes. Abdominal: Abdomen is firm, warm, with generalized tenderness. Bowel sounds are diminished Extremities: Upper and lower extremities are atraumatic in appearance without deformity or edema. Neurological: The patient is awake, alert and oriented to person, place, and time with normal speech. Speech is clear. There is no facial asymmetry. Review of Systems: REVIEW OF SYSTEMS: No fever, no chills, or fatigue HEENT: No sore throat, no earache, no congestion, no neck pain. Cardiac: No chest pain. No palpitations. Lungs: No shortness of breath, no cough. GI: No nausea, no vomiting, no diarrhea, no constipation, positive abdominal pain : No dysuria, frequency, or urgency. No hematuria. Musculoskeletal: No joint pain , no joint swelling, no extremity edema. Skin: No rash, no itching. 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 Was a procedure done?: No Differential Dx Considerations may include: Gastritis, gastroenteritis, cholelithiasis, acute appendicitis, perforated bowel, small-bowel obstruction X-Ray, Labs, Meds, VS Vital Signs Date Time Temp Pulse Resp B/P (MAP) Pulse Ox O2 Delivery O2 Flow Rate FiO2 07/19/24 06:21 90 16 94 Room Air* 0 21 07/19/24 06:16 90 16 124/88 (100) 94 07/19/24 06:14 90 16 124/88 07/19/24 04:20 90/67 07/19/24 03:46 98.6 93 30 97/78 (84) 98 98.6 07/19/24 03:43 71 Lab Test 07/19/24 06:18 07/19/24 05:01 07/19/24 04:00 Range/Units Lactic Acid Level Pending 2.7 *H 0.4-2.0 mmol/L Troponin I High Sensitivity Pending < 3 L < 3 L </=34 ng/L White Blood Count 16.8 H 4.4-10.8 10^3/uL Red Blood Count 4.95 4.0-5.20 10^6/uL Hemoglobin 15.3 12.2-16.2 g/dL Hematocrit 44.3 36.0-46.0 % Mean Corpuscular Volume 89.5 80.0-100.0 fL Mean Corpuscular Hemoglobin 30.9 28.0-32.0 pg Mean Corpuscular Hemoglobin Concent 34.5 32.0-36.0 g/dL Red Cell Distribution Width 15.8 H 11.8-14.3 % Platelet Count 355 140-450 10^3/uL Mean Platelet Volume 8.7 6.9-10.8 fL Neutrophils (%) (Auto) 78.1 37.0-80.0 % Lymphocytes (%) (Auto) 14.8 10.0-50.0 % Monocytes (%) (Auto) 5.5 0.0-12.0 % Eosinophils (%) (Auto) 1.0 0.0-7.0 % Basophils (%) (Auto) 0.6 0.0-2.0 % Neutrophils # (Auto) 13.2 H 1.6-8.6 10 ^3/uL Lymphocytes # (Auto) 2.5 0.4-5.4 10 ^3/uL Monocytes # (Auto) 0.9 0-1.3 10 ^3/uL Eosinophils # (Auto) 0.2 0-0.8 10 ^3/uL Basophils # (Auto) 0.1 0-0.2 10 ^3/uL Nucleated Red Blood Cells 0.0 % Prothrombin Time 10.3 9.3-11.8 sec Prothrombin Time INR 0.97 0.9-1.15 Sodium Level 141 136-145 mmol/L Potassium Level 3.5 3.5-5.1 mmol/L Chloride Level 105 98-107 mmol/L Carbon Dioxide Level 24 20-31 mmol/L Anion Gap 12 5-15 Blood Urea Nitrogen 6 L 9-23 mg/dL Creatinine 0.89 0.550-1.02 mg/dL Glomerular Filtration Rate Calc 76 >90 mL/min BUN/Creatinine Ratio 6.7 L 10.0-20.0 Serum Glucose 163 H 74-106 mg/dL Calcium Level 9.6 8.7-10.4 mg/dL Magnesium Level 2.1 1.6-2.6 mg/dL Total Bilirubin 0.9 0.2-1.0 mg/dL Aspartate Amino Transferase (AST) 23 13-40 U/L Alanine Aminotransferase (ALT) 17 7-40 U/L Alkaline Phosphatase 97 46-116 U/L Creatine Kinase 56 34-145 U/L C-Reactive Protein High Sensitivity 0.91 <1.0 mg/dL B-Type Natriuretic Peptide 51.53 0-100 pg/mL Total Protein 7.7 5.7-8.2 g/dL Albumin 4.7 3.2-4.8 g/dL Lipase 38 12-53 U/L Plasma/Serum Blood Alcohol < 3.0 <10 mg/dL Current Medications Medications (Trade) Dose Ordered Sig/Nabeel Route Start Time Stop Time Status Last Admin Ondansetron HCl (Zofran) 4 mg ONCE ONCE IV 07/19/24 04:00 07/19/24 04:01 DC 07/19/24 04:10 Sodium Chloride 1,000 ml @ 1,000 mls/hr Q1H ONCE IV 07/19/24 04:00 07/19/24 04:59 DC 07/19/24 04:11 Fentanyl Citrate 50 mcg ONCE ONCE IV 07/19/24 04:15 07/19/24 04:16 DC 07/19/24 04:20 Piperacillin Sod/ Tazobactam Sod 100 ml @ 100 mls/hr ONCE ONCE IV 07/19/24 05:00 07/19/24 05:59 DC 07/19/24 05:21 Sodium Chloride 1,000 ml @ 130 mls/hr Q7H42M ONCE IV 07/19/24 05:00 07/19/24 12:41 07/19/24 05:50 Sodium Chloride 1,000 ml @ 1,000 mls/hr Q1H ONCE IV 07/19/24 05:15 07/19/24 06:14 DC 07/19/24 05:45 Acetaminophen (Ofirmev) 1,000 mg ONCE ONCE IV 07/19/24 05:15 07/19/24 05:16 DC 07/19/24 05:24 Morphine Sulfate 4 mg ONCE ONCE IV 07/19/24 06:15 07/19/24 06:16 DC 07/19/24 06:14 PATIENT: LUCILLE HICKEY EACCT: [id number]: [id number] : 1965 LOC: ER ROOM / BED: / AGE / SEX: 59 / F ADM STATUS: REG ER SERVICE [id number] ORDERING PHYSICIAN: VEDA MCINTYRE MD PROCEDURE(s): ABPLIV - CT AB PEL WITH IV CON ONLY REASON: Severe, generalized abdl pain radiating to back, hx gallston ORDER NUMBER(s): [id number], ACCESSION NUMBER(s): [id number] ADDENDUM ADDENDUM # 1 Critical result: Pneumoperitoneum. Bowel perforation. Findings discussed with Dr. Mcintyre on 07/19/2024 at 7:30 a.m. DIRECTOR OUTPATIENT SERVICES, with acknowledged receipt and understanding of the findings. ORIGINAL REPORT Exam: CT CT AB PEL WITH IV CON ONLY History: Severe, generalized abdl pain radiating to back, hx gallston Comparison Study: None available at time of dictation. Contrast: Type of contrast: Contrast injected: Contrast wasted: 0 TECHNIQUE: CT of the abdomen pelvis was performed from the lung bases to the proximal femurs using axial images. Coronal and sagittal reformatted images are submitted. Radiation Dose Information: CT Dose: CTDI volume is 13.77 mGy. Dose-length product is 767.8 mGy*cm FINDINGS: Lung Bases: No acute or significant lung base finding. Normal heart size. No pleural or pericardial effusion. Liver: The liver is normal in size. There is a heterogeneously enhancing mass in the right hepatic lobe measuring 1.9 cm, possibly a hemangioma. There is low attenuating mass in the right lobe measuring 1.6 cm. Possible smaller low attenuating mass measuring 9 mm also in the right lobe. Gallbladder and Biliary Tree: Gallstones. No biliary ductal dilatation. Spleen: Unremarkable Pancreas: The pancreas is normal in appearance without focal lesions or abnormal enhancement. Adrenal Glands: Unremarkable Kidneys: Kidneys demonstrate normal symmetric enhancement without focal lesions, calculi or hydronephrosis. Urinary bladder: Unremarkable. Bowel: The stomach is grossly normal in appearance. Diffuse small bowel wall thickening in the central abdomen and left lower quadrant. Multiple scattered foci of pneumoperitoneum suspicious for small bowel perforation. Scattered stool throughout the colon. Sigmoid diverticulosis without acute diverticulitis. Intraperitoneal cavity: Mild diffuse abdominopelvic ascites. Multiple nodular soft tissue densities compatible with peritoneal implants. Omental caking consistent with carcinomatosis. Multiple foci of pneumoperitoneum as described. Lymphadenopathy: Several mesenteric and retroperitoneal lymph nodes which are subcentimeter in size. Mesentery: There is a stellate mesenteric mass which measures 2.8 by 3.6 by 3.3 cm in the right hemiabdomen. Vasculature: The visualized abdominal aorta is normal in size and caliber. There is a filling defect in the portal confluence. Pelvic Organs: Unremarkable Musculoskeletal: There are sclerotic lesions in the posterior left acetabulum which are subcentimeter in size, concerning for skeletal metastases. Soft tissues: Bilateral breast implants. IMPRESSION: 1. 3.6 cm stellate mesenteric mass highly suspicious for malignancy. Carcinoid tumor is a consideration given the stellate appearance of the mass. 2. Omental carcinomatosis and peritoneal metastases. 3. Abnormal small bowel wall thickening consistent with enteritis and pneumoperitoneum suggesting small bowel perforation. This could be ischemic enteritis. 4. Filling defects in the portal confluence and superior mesenteric vein. This is concerning for thrombus. 5. Gallstones. 6. Sclerotic lesions in the left acetabulum which could represent skeletal metastases. 7. Mild abdominopelvic ascites. All CT scans at this medical facility are performed using dose modulation techniques as appropriate to a performed exam including the following: Automated exposure control was utilized; adjustment of the MA and/or KV according to patient size; and use of iterative reconstruction technique. ATED BY: SONJA GONZALEZ MD DICTATED DATE/TIME: 07/19/24542 SIGNED BY: SONJA GONZALEZ MD SIGNED DATE/TIME: 07/19/24542 CC: Exam: CT CT AB PEL WITH IV CON ONLY History: Severe, generalized abdl pain radiating to back, hx gallston Comparison Study: None available at time of dictation. Contrast: Type of contrast: Contrast injected: Contrast wasted: 0 TECHNIQUE: CT of the abdomen pelvis was performed from the lung bases to the proximal femurs using axial images. Coronal and sagittal reformatted images are submitted. Radiation Dose Information: CT Dose: CTDI volume is 13.77 mGy. Dose-length product is 767.8 mGy*cm FINDINGS: Lung Bases: No acute or significant lung base finding. Normal heart size. No pleural or pericardial effusion. Liver: The liver is normal in size. There is a heterogeneously enhancing mass in the right hepatic lobe measuring 1.9 cm, possibly a hemangioma. There is low attenuating mass in the right lobe measuring 1.6 cm. Possible smaller low attenuating mass measuring 9 mm also in the right lobe. Gallbladder and Biliary Tree: Gallstones. No biliary ductal dilatation. Spleen: Unremarkable Pancreas: The pancreas is normal in appearance without focal lesions or abnormal enhancement. Adrenal Glands: Unremarkable Kidneys: Kidneys demonstrate normal symmetric enhancement without focal lesions, calculi or hydronephrosis. Urinary bladder: Unremarkable. Bowel: The stomach is grossly normal in appearance. Diffuse small bowel wall thickening in the central abdomen and left lower quadrant. Multiple scattered foci of pneumoperitoneum suspicious for small bowel perforation. Scattered stool throughout the colon. Sigmoid diverticulosis without acute diverticulitis. Intraperitoneal cavity: Mild diffuse abdominopelvic ascites. Multiple nodular soft tissue densities compatible with peritoneal implants. Omental caking consistent with carcinomatosis. Multiple foci of pneumoperitoneum as described. Lymphadenopathy: Several mesenteric and retroperitoneal lymph nodes which are subcentimeter in size. Mesentery: There is a stellate mesenteric mass which measures 2.8 by 3.6 by 3.3 cm in the right hemiabdomen. Vasculature: The visualized abdominal aorta is normal in size and caliber. There is a filling defect in the portal confluence. Pelvic Organs: Unremarkable Musculoskeletal: There are sclerotic lesions in the posterior left acetabulum which are subcentimeter in size, concerning for skeletal metastases. Soft tissues: Bilateral breast implants. IMPRESSION: 1. 3.6 cm stellate mesenteric mass highly suspicious for malignancy. Carcinoid tumor is a consideration given the stellate appearance of the mass. 2. Omental carcinomatosis and peritoneal metastases. 3. Abnormal small bowel wall thickening consistent with enteritis and pneumoperitoneum suggesting small bowel perforation. This could be ischemic enteritis. 4. Filling defects in the portal confluence and superior mesenteric vein. This is concerning for thrombus. 5. Gallstones. 6. Sclerotic lesions in the left acetabulum which could represent skeletal metastases. 7. Mild abdominopelvic ascites. All CT scans at this medical facility are performed using dose modulation techniques as appropriate to a performed exam including the following: Automated exposure control was utilized; adjustment of the MA and/or KV according to patient size; and use of iterative reconstruction technique. ATED BY: SONJA GONZALEZ MD DICTATED DATE/TIME: 07/19/24524 SIGNED BY: SONJA GONZALEZ MD SIGNED DATE/TIME: 07/19/24524 Images Reviewed?: Images reviewed and evaluated by me (Independent interpretation: CT scan shows free air outside of the bowel) Time of 1ST Reevaluation: 04:17 Reevaluation 1ST: Unchanged Patient Education/Counseling: Need For Follow Up Family Education/Counseling: No Family Present Departure 1 Departure Time of Disposition: 06:37 (Patient presented with abdominal pain that was concerning for possible appendicits, gastritis, cholecystitis, colitis, gastroenteritis, sbo, or orther possible surgical emergency. Data: 1. I ordered and reviewed the result of at least 3 labs including a CBC, BMP, and Urinalysis. 2. I independently interpreted the following tests: CT Abdoment and Pelvis is concerning for small bowel perforation .Risk:This patient has a high risk of morbidity due to further diagnostic testing or treatment and may suffer from an acute abdominal process disorder. Workup reveals small-bowel perforation. Surgery was emergently consulted and patient should be admitted for further workup. and possible expert consultation. ) Impression: Primary Impression: Small bowel perforation Additional Impression: Abdominal pain Qualified Codes: R10.84 - Generalized abdominal pain Disposition: 09 ADMITTED INPATIENT Admit to: ICU Condition: Critical Comments 59-year-old female who presented with severe abdominal pain. Initial independent interpretation of CT scan showed free air outside of bowel. Lactic acid elevated. White blood cell count 16.8. Surgical consult was placed, IV fluids, pain control, antibiotics initiated. Discussed with Dr. Rae, general surgery, recommendation is resuscitation, NG tube, antibiotics, call him back with CT scan results. (@5:20). Discussed CT scan results with Dr. Rae. (@5:45) Critical Care Note Critical Care Time?: Yes Critical care comment: Perforated bowel Authorized and Performed by: Ricardo Crowder MD Total critical care time: Approximately 124 minutes Due to a high probability of clinically significant, life threatening deterioration, the patient required my highest level of preparedness to intervene emergently and I personally spent this critical care time directly and personally managing the patient. This critical care time included obtaining a history; examining the patient; pulse oximetry; ordering and review of studies; arranging urgent treatment with development of a management plan; evaluation of patient's response to treatment; frequent reassessment; and, discussions with other providers. This critical care time was performed to assess and manage the high probability of imminent, life-threatening deterioration that could result in multi-organ failure. It was exclusive of separately billable procedures and treating other p atients and teaching time. Please see my other sections and the rest of the note for further information on patient assessment and treatment. Stability Stability form required: No I personally scribed for VEDA MCINTYRE MD ([email or web address]) on 07/19/24 at 03:56. Electronically submitted by Denny Patton ([email or web address]). I personally scribed for VEDA MCINTYRE MD ([email or web address]) on 07/19/24 at 05:55. Electronically submitted by Denny Patton ([email or web address]). VEDA MCINTYRE MD Jul 19, 2024 03:56 RICARDO CROWDER MD Jul 19, 2024 06:38
[2024-07-19] MEDS: ONDANSETRON HCL 4 MG/2 ML VIAL IV ONE (04:10)
[2024-07-19] MEDS: SODIUM CHLORIDE 0.9% 1,000 ML IV ONE ×3 (04:11→05:50)
[2024-07-19] MEDS: MORPHINE SULFATE INJ 2 MG/ml SYRG IV ONE (04:13)
--- NOTE | 2024-07-19 04:13 | ECG ---
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
[2024-07-19] MEDS: IOHEXOL 300 MG/ML 100ML BOTTLE IJ ONE (04:14)
[2024-07-19 04:20] LABS: Basophils # (auto) 0.1 10 ^3/uL (0-0.2); Basophils % (auto) 0.6 % (0.0-2.0); Eosinophils # (auto) 0.2 10 ^3/uL (0-0.8); Hematocrit 44.3 % (36.0-46.0); Hemoglobin 15.3 g/dL (12.2-16.2); Lymphocytes # (auto) 2.5 10 ^3/uL (0.4-5.4); Lymphocytes % (auto) 14.8 % (10.0-50.0); Mean Corpuscular Hemoglobin 30.9 pg (28.0-32.0); Mean Corpuscular Hgb Conc. 34.5 g/dL (32.0-36.0); Mean Corpuscular Volume 89.5 fL (80.0-100.0); Monocytes # (auto) 0.9 10 ^3/uL (0-1.3); Monocytes % (auto) 5.5 % (0.0-12.0); Neutrophils # (auto) 13.2 10 ^3/uL (1.6-8.6); Neutrophils % (auto) 78.1 % (37.0-80.0); Platelet Count (auto) 355 10^3/uL (140-450); Red Blood Cells 4.95 10^6/uL (4.0-5.20); Red Cell Distribution Width 15.8 % (11.8-14.3); White Blood Cell 16.8 10^3/uL (4.4-10.8)
[2024-07-19] MEDS: fentaNYL CITRATE 100 MCG/2 ML VL IV ONE (04:20)
[2024-07-19 04:40] LABS: Alanine Aminotransferase 17 U/L (7-40); Albumin 4.7 g/dL (3.2-4.8); Alkaline Phosphatase 97 U/L (46-116); Anion Gap 12 (5-15); Aspartate Aminotransferase 23 U/L (13-40); BUN/Creatinine Ratio 6.7 (10.0-20.0); Calcium 9.6 mg/dL (8.7-10.4); Carbon Dioxide 24 mmol/L (20-31); Chloride 105 mmol/L (98-107); Lipase 38 U/L (12-53); Magnesium 2.1 mg/dL (1.6-2.6); Potassium 3.5 mmol/L (3.5-5.1); Sodium 141 mmol/L (136-145); Total Protein 7.7 g/dL (5.7-8.2)
[2024-07-19 04:41] LABS: Bilirubin, Total 0.9 mg/dL (0.2-1.0); Creatine Kinase IFCC 56 U/L (34-145)
[2024-07-19 04:42] LABS: Blood Urea Nitrogen 6 mg/dL (9-23); Glucose 163 mg/dL (74-106)
[2024-07-19 04:44] LABS: INR 0.97 (0.9-1.15); Prothrombin Time 10.3 sec (9.3-11.8)
[2024-07-19 04:48] LABS: Lactic Acid w/Reflex 2.7 mmol/L (0.4-2.0)
[2024-07-19] MEDS: PIPERACILLIN-TAZO 4.5GM 100 ML IV ONE (05:21)
[2024-07-19] MEDS: ACETAMINOPHEN IV 1000 MG/100ML (10MG/ML) IV ONE (05:24)
--- NOTE | 2024-07-19 05:28 | DVH ---
Exam: CT CT AB PEL WITH IV CON ONLY History: Severe, generalized abdl pain radiating to back, hx gallston Comparison Study: None available at time of dictation. Contrast: Type of contrast: Contrast injected: Contrast wasted: 0 TECHNIQUE: CT of the abdomen pelvis was performed from the lung bases to the proximal femurs using ax ial images. Coronal and sagittal reformatted images are submitted. Radiation Dose Information: CT Dose: CTDI volume is 13.77 mGy. Dose-length product is 767.8 mGy*cm FINDINGS: Lung Bases: No acute or significant lung base finding. Normal heart size. No pleural or pericardial effusion. Liver: The liver is normal in size. There is a heterogeneously enhancing mass in the right hepatic lo be measuring 1.9 cm, possibly a hemangioma. There is low attenuating mass in the right lobe measurin g 1.6 cm. Possible smaller low attenuating mass measuring 9 mm also in the right lobe. Gallbladder and Biliary Tree: Gallstones. No biliary ductal dilatation. Spleen: Unremarkable Pancreas: The pancreas is normal in appearance without focal lesions or abnormal enhancement. Adrenal Glands: Unremarkable Kidneys: Kidneys demonstrate normal symmetric enhancement without focal lesions, calculi or hydroneph rosis. Urinary bladder: Unremarkable. Bowel: The stomach is grossly normal in appearance. Diffuse small bowel wall thickening in the centra l abdomen and left lower quadrant. Multiple scattered foci of pneumoperitoneum suspicious for small bowel perforation. Scattered stool throughout the colon. Sigmoid diverticulosis without acute diverti culitis. Intraperitoneal cavity: Mild diffuse abdominopelvic ascites. Multiple nodular soft tissue densities c ompatible with peritoneal implants. Omental caking consistent with carcinomatosis. Multiple foci of pneumoperitoneum as described. Lymphadenopathy: Several mesenteric and retroperitoneal lymph nodes which are subcentimeter in size. Mesentery: There is a stellate mesenteric mass which measures 2.8 by 3.6 by 3.3 cm in the right hemia bdomen. Vasculature: The visualized abdominal aorta is normal in size and caliber. There is a filling defect in the portal confluence. Pelvic Organs: Unremarkable Musculoskeletal: There are sclerotic lesions in the posterior left acetabulum which are subcentimeter in size, concerning for skeletal metastases. Soft tissues: Bilateral breast implants. IMPRESSION: 1. 3.6 cm stellate mesenteric mass highly suspicious for malignancy. Carcinoid tumor is a considerati on given the stellate appearance of the mass. 2. Omental carcinomatosis and peritoneal metastases. 3. Abnormal small bowel wall thickening consistent with enteritis and pneumoperitoneum suggesting sma ll bowel perforation. This could be ischemic enteritis. 4. Filling defects in the portal confluence and superior mesenteric vein. This is concerning for thr ombus. 5. Gallstones. 6. Sclerotic lesions in the left acetabulum which could represent skeletal metastases. 7. Mild abdominopelvic ascites. All CT scans at this medical facility are performed using dose modulation techniques as appropriate t o a performed exam including the following: Automated exposure control was utilized; adjustment of th e MA and/or KV according to patient size; and use of iterative reconstruction technique.
[2024-07-19 05:49] LABS: CRP High Sensitivity 0.91 mg/dL (<1.0)
[2024-07-19 05:52] LABS: Blood Alcohol < 3.0 mg/dL (<10)
[2024-07-19] MEDS: MORPHINE SULFATE 4 MG/ML SYR/VIAL IV ONE (06:14)
--- NOTE | 2024-07-19 06:32 | DVH ---
CHEST RADIOGRAPH Indication: Pain Technique: Single frontal view of the chest was obtained COMPARISON: CHEST XRAY 1 VIEW on DOS: 07/26/19 FINDINGS: Lines and Tubes: None Lungs: Clear Pleura: No effusion. No pneumothorax. Cardiomediastinal contours: Unremarkable Bones: Unremarkable IMPRESSION: No acute disease.
[2024-07-19] MEDS ORDERED: MORPHINE SULFATE INJ 2 MG/ml SYRG IV PRN (08:15)
[2024-07-19] MEDS ORDERED: SODIUM CHLORIDE 0.9% 1,000 ML IV SCH (08:15)
[2024-07-19] MEDS ORDERED: NITROGLYCERIN 0.4 MG SL TAB SL PRN (08:15)
[2024-07-19] MEDS ORDERED: ONDANSETRON HCL 4 MG/2 ML VIAL IV PRN (08:15)
[2024-07-19] MEDS ORDERED: ROSU20TA56 PO (08:18)
[2024-07-19] MEDS ORDERED: LEVO100T8 PO (08:18)
--- NOTE | 2024-07-19 08:35 | DVHHP2 ---
History of Present Illness Reason for Visit: Abdominal pain History of Present Illness Dionne Guerra is a 59-year-old female with past medical history of hypothyroidism, gallstones, and hyperlipidemia, who came in for abdominal pain. Patient states she was awoken up about 0100 with extreme abdominal pain. She states the pain came on suddenly and was unprovoked. She states she has been having abdominal problems since about September 2023. It started with diarrhea, then she was having pain and nausea. She came to the hospital in December 2023, was told she has gallstones and sent home. She has continued to have severe diarrhea when she eats certain foods. She has not been having pain these last few months, until this morning. Due to the diarrhea she has been losing weight these last few months. Cardiovascular: hyperipidemia Endocrine: Hypothyroidism Past Surgical History: Hernia Repair, Other (right ankle) Smoke: No ALCOHOL: rare Drugs: None Lives: with Family Review of Systems Constitutional: No: Fever, Chills, Sweats, Weakness, Malaise, Other Eyes: No: Pain, Vision change, Conjunctivae inflammation, Eyelid inflammation, Other, Redness ENT: No: Ear pain, Ear discharge, Nose pain, Nose discharge, Nose congestion, Mouth pain, Mouth swelling, Throat pain, Throat swelling, Other Respiratory: No: Cough, Dry, Shortness of breath, SOB with excertion, Wheezing, Hemoptysis, Pleuritic Pain, Sputum, Wheezing, Other Cardiovascular: No: Chest Pain, Palpitations, Orthopnea, Paroxysmal Noc. Dyspnea, Edema, Lt Headedness, Other Gastrointestinal: Abdominal Pain, Diarrhea; No: Nausea, Vomiting, Constipation, Melena, Hematochezia, Other Genitourinary: No Dysuria, No Frequency, No Incontinence, No Hematuria, No Retention, No Other Musculoskeletal: No: other, neck pain, shoulder pain, arm pain, back pain, hand pain, leg pain, foot pain Skin: No: Rash, Lesions, Jaundice, Bruising, Other Neurological: No: Weakness, Numbness, Incoordination, Change in speech, Co nfusion, Seizures, Other Allergies: Coded Allergies: NO KNOWN ALLERGIES (Unverified , 07/26/19) Exam Vital Signs Vital Signs Date Time Temp Pulse Resp B/P (MAP) Pulse Ox O2 Delivery O2 Flow Rate FiO2 07/19/24 06:51 86 14 124/88 07/19/24 06:21 94 Room Air* 0 21 07/19/24 03:46 98.6 98.6 General Appearance: Alert, Oriented X3, Cooperative, moderate distress HEENT: Atraumatic, PERRLA Respiratory: Clear to auscultation, Normal air movement Cardiovascular: Regular rate, Normal S1, Normal S2, No murmurs Abdominal: Soft, Other (Severe pain on palpitation) Extremities: No clubbing, No cyanosis, No edema, Normal pulses Skin: No rashes, No breakdown, No significant lesion Neuro: Normal gait, Normal speech, Strength at 5/5 X4 ext Psych/Mental Status: Mental status NL, Mood NL Labs/Xrays Labs Test 07/19/24 06:18 07/19/24 04:00 Range/Units Lactic Acid Level 1.8 0.4-2.0 mmol/L Troponin I High Sensitivity < 3 L </=34 ng/L White Blood Count 16.8 H 4.4-10.8 10^3/uL Red Blood Count 4.95 4.0-5.20 10^6/uL Hemoglobin 15.3 12.2-16.2 g/dL Hematocrit 44.3 36.0-46.0 % Mean Corpuscular Volume 89.5 80.0-100.0 fL Mean Corpuscular Hemoglobin 30.9 28.0-32.0 pg Mean Corpuscular Hemoglobin Concent 34.5 32.0-36.0 g/dL Red Cell Distribution Width 15.8 H 11.8-14.3 % Platelet Count 355 140-450 10^3/uL Mean Platelet Volume 8.7 6.9-10.8 fL Neutrophils (%) (Auto) 78.1 37.0-80.0 % Lymphocytes (%) (Auto) 14.8 10.0-50.0 % Monocytes (%) (Auto) 5.5 0.0-12.0 % Eosinophils (%) (Auto) 1.0 0.0-7.0 % Basophils (%) (Auto) 0.6 0.0-2.0 % Neutrophils # (Auto) 13.2 H 1.6-8.6 10 ^3/uL Lymphocytes # (Auto) 2.5 0.4-5.4 10 ^3/uL Monocytes # (Auto) 0.9 0-1.3 10 ^3/uL Eosinophils # (Auto) 0.2 0-0.8 10 ^3/uL Basophils # (Auto) 0.1 0-0.2 10 ^3/uL Nucleated Red Blood Cells 0.0 % Prothrombin Time 10.3 9.3-11.8 sec Prothrombin Time INR 0.97 0.9-1.15 Sodium Level 141 136-145 mmol/L Potassium Level 3.5 3.5-5.1 mmol/L Chloride Level 105 98-107 mmol/L Carbon Dioxide Level 24 20-31 mmol/L Anion Gap 12 5-15 Blood Urea Nitrogen 6 L 9-23 mg/dL Creatinine 0.89 0.550-1.02 mg/dL Glomerular Filtration Rate Calc 76 >90 mL/min BUN/Creatinine Ratio 6.7 L 10.0-20.0 Serum Glucose 163 H 74-106 mg/dL Calcium Level 9.6 8.7-10.4 mg/dL Magnesium Level 2.1 1.6-2.6 mg/dL Total Bilirubin 0.9 0.2-1.0 mg/dL Aspartate Amino Transferase (AST) 23 13-40 U/L Alanine Aminotransferase (ALT) 17 7-40 U/L Alkaline Phosphatase 97 46-116 U/L Creatine Kinase 56 34-145 U/L C-Reactive Protein High Sensitivity 0.91 <1.0 mg/dL B-Type Natriuretic Peptide 51.53 0-100 pg/mL Total Protein 7.7 5.7-8.2 g/dL Albumin 4.7 3.2-4.8 g/dL Lipase 38 12-53 U/L Plasma/Serum Blood Alcohol < 3.0 <10 mg/dL Exam: CT CT AB PEL WITH IV CON ONLY FINDINGS: Lung Bases: No acute or significant lung base finding. Normal heart size. No pleural or pericardial effusion. Liver: The liver is normal in size. There is a heterogeneously enhancing mass in the right hepatic lobe measuring 1.9 cm, possibly a hemangioma. There is low attenuating mass in the right lobe measuring 1.6 cm. Possible smaller low attenuating mass measuring 9 mm also in the right lobe. Gallbladder and Biliary Tree: Gallstones. No biliary ductal dilatation. Spleen: Unremarkable Pancreas: The pancreas is normal in appearance without focal lesions or abnormal enhancement. Adrenal Glands: Unremarkable Kidneys: Kidneys demonstrate normal symmetric enhancement without focal lesions, calculi or hydronephrosis. Urinary bladder: Unremarkable. Bowel: The stomach is grossly normal in appearance. Diffuse small bowel wall thickening in the central abdomen and left lower quadrant. Multiple scattered foci of pneumoperitoneum suspicious for small bowel perforation. Scattered stool throughout the colon. Sigmoid diverticulosis without acute diverticulitis. Intraperitoneal cavity: Mild diffuse abdominopelvic ascites. Multiple nodular soft tissue densities compatible with peritoneal implants. Omental caking consistent with carcinomatosis. Multiple foci of pneumoperitoneum as described. Lymphadenopathy: Several mesenteric and retroperitoneal lymph nodes which are subcentimeter in size. Mesentery: There is a stellate mesenteric mass which measures 2.8 by 3.6 by 3.3 cm in the right hemiabdomen. Vasculature: The visualized abdominal aorta is normal in size and caliber. There is a filling defect in the portal confluence. Pelvic Organs: Unremarkable Musculoskeletal: There are sclerotic lesions in the posterior left acetabulum which are subcentimeter in size, concerning for skeletal metastases. Soft tissues: Bilateral breast implants. IMPRESSION: 1. 3.6 cm stellate mesenteric mass highly suspicious for malignancy. Carcinoid tumor is a consideration given the stellate appearance of the mass. 2. Omental carcinomatosis and peritoneal metastases. 3. Abnormal small bowel wall thickening consistent with enteritis and pneumoperitoneum suggesting small bowel perforation. This could be ischemic enteritis. 4. Filling defects in the portal confluence and superior mesenteric vein. This is concerning for thrombus. 5. Gallstones. 6. Sclerotic lesions in the left acetabulum which could represent skeletal metastases. 7. Mild abdominopelvic ascites. CHEST RADIOGRAPH FINDINGS: Lines and Tubes: None Lungs: Clear Pleura: No effusion. No pneumothorax. Cardiomediastinal contours: Unremarkable Bones: Unremarkable IMPRESSION: No acute disease. Assessment/Plan Assessment/Plan Assessment: Small bowel perforation, Possible cancer, Hypothyroidism, Hyperlipidemia, Plan: Admit to ICU, Surgical consult, NPO, IV hydration, NG tube placement, NG tube to LIS, Home medications reconciled, Plan discussed with: Patient, Spouse My Orders Orders - DONG JOENG Procedure Category Date Status Time Admit ADMIT 07/19/24 Verified 08:15 Code Status CODE 07/19/24 Verified 08:15 0.9% Ns 1000 Ml PHA 07/19/24 Verified 08:15 Ondansetron Hcl PHA 07/19/24 Verified (Zofran) 08:15 Complete Blood Count LAB 07/20/24 Verified 04:00 Comprehensive LAB 07/20/24 Verified Metabolic Panel 04:00 Condition: Critical KAREN 07/19/24 Verified 08:15 Morphine Sulfate PHA 07/19/24 Verified Injection 08:15 Nitroglycerin PHA 07/19/24 Verified Sublingual (Ntrostat 08:15 Morphine Sulfate PHA 07/19/24 Verified Injection 08:15 Stat Ekg For Chest [facility] 07/19/24 Verified Pain 08:15 Notify Md Of Changes [facility] 07/19/24 Verified From Base 08:15 Cylinder Dyer For [facility] 07/19/24 Verified 24 Hours 08:15 Emergency Dysrhythmia [facility] 07/19/24 Verified Protocol 08:15 Rhythm Strips Once [facility] 07/19/24 Verified Every Shift 08:15 Oxygen By Nasal RT 07/19/24 Verified Cannula 08:15 Thyroid Stimulating LAB 07/19/24 Verified Hormone 08:18 Date of Service: Jul 19, 2024 Billing Provider: DONG JEONG Common Visit Codes: [id number] INP/OBS CARE (HIGH) DONG JEONG Jul 19, 2024 08:35
[2024-07-19] MEDS: SUCCINYLCHOLINE CHLORIDE 20 MG/ML 10ML VIAL IV ONE (09:02)
[2024-07-19] MEDS ORDERED: fentaNYL CITRATE 100 MCG/2 ML VL ONE (09:04)
[2024-07-19] MEDS ORDERED: HYDROmorphone HCL 2 MG/ML VL/or syr ONE (09:05)
[2024-07-19] MEDS: ceFAZolin 1GM/50ML 100 ML IV ONE (09:19)
[2024-07-19] MEDS ORDERED: ePHEDrine SULFATE 50 MG/ML AMP ONE (09:27)
[2024-07-19] MEDS ORDERED: DexAMETHasone SOD PHOS 10MG/1ML VIAL INJ ONE (09:30)
[2024-07-19] MEDS ORDERED: ONDANSETRON HCL 4 MG/2 ML VIAL ONE (09:30)
[2024-07-19] MEDS: BUPIVACAINE 0.5% P/F INJ 10 ML VIAL ONE ×2 (09:30→10:24)
[2024-07-19] MEDS: LIDOCAINE W/ EPINEPHRINE 1% 20ML VIAL ONE (10:25)
[2024-07-19] MEDS ORDERED: SUGAMMADEX 200mg/2ml Vial (100MG/ML) IV ONE (10:44)
[2024-07-19] MEDS ORDERED: ONDANSETRON ODT 4 MG TAB PO PRN (11:15)
[2024-07-19] MEDS: HYDROMORPHONE HCL 1 MG/ML INJ IV ONE (11:15)
--- NOTE | 2024-07-19 11:15 | DVHOP ---
DATE OF SURGERY: 07/19/2024 PREOPERATIVE DIAGNOSES: * Pneumoperitoneum. * Abdominal sepsis. * Carcinomatosis. POSTOPERATIVE DIAGNOSES: * Carcinomatosis. * Tumor in omentum (excised for biopsy). * Tumor in mesentery, excised. * Ischemic small bowel perforation thereof, excised. * Enteroenterostomy (stapled). DESCRIPTION OF PROCEDURE: Under general endotracheal anesthesia, with the patient's skin prepped and draped, a midline incision was made and abdominal fluid evacuated. Cultures were submitted. There was a loop of midportion of the small bowel which was ischemic appearing and had a small perforation in the antimesenteric border. This loop of bowel was ischemic in its entirety and it was excised by division of the mesentery between Pean clamps and ligature of the mesenteric vessels. Subsequently, a tumor in the mesentery which was causing an obstruction of the bowel was excised and submitted. Subsequently, the bowel was inspected for viability which was assured and a [id number] anastomosis established between the remaining bowel by stapling with a JUAN JOSE stapler. The staple line was reinforced with 3-0 Prolene suture. The mesenteric defect was approximated using 2-0 Monocryl suture. Abdomen was profusely irrigated with warm saline which was then aspirated. An omental implant was biopsied while the omentum ligated for hemostasis. A 10 mm Med-Remy drain was inserted into the peritoneal cavity and exteriorized through a separate stab wound incision. Following assurance of complete hemostasis, the procedure was terminated. Instrumentation was withdrawn. Laparotomy packs were withdrawn. Needle and sponge count being reported as accurate x2. The abdominal wall was approximated using #1 double-stranded PDS suture. Abdominal incision approximated using Monocryl suture, Dermabond glue, and Steri-Strips. At the completion of the procedure, biopsy was obtained. Frozen section of the omental implant reported as carcinoma present. Frozen section of the ischemic bowel revealed no gross evidence of tumor and small perforation at the site indicated by suture. The tumor in the mesentery was excised but frozen sections were not obtained. There was evidence of diffuse carcinomatosis involving mesentery serosal surfaces and omentum as well as the anterior abdominal wall. The patient left the operating room following an accurate needle and sponge count. , Gui Guerra, was thoroughly informed at [phone]. I informed the that the patient has diffuse seeding of the abdominal cavity with cancer and that the bowel was resected due to its ischemia and perforation, that the bowel was anastomosed together, and that the biopsy of the omentum did show carcinoma in the omental surfaces. MD LEYDA Padilla/NAZ TID: [id number] RECEIPT: [id number]
[2024-07-19] MEDS ORDERED: MEPERIDINE HCL (25 MG/ML) 1ML VIAL IV PRN (11:30)
[2024-07-19] MEDS: HYDROmorphone HCL 2 MG/ML VL/or syr IV PRN (11:35)
[2024-07-19] MEDS: ACETAMINOPHEN IV 1000 MG/100ML (10MG/ML) IV PRN (11:46)
[2024-07-19] MEDS: LEVOTHYROXINE SODIUM 100 MCG/5 ML INJ IV SCH (13:16)
[2024-07-19] MEDS: D5W/SOD CHL 0.45%/KCL 20MEQ 1,000 ML IV SCH (13:27)
[2024-07-19] MEDS: metroNIDAZOLE 500MG/100ML 100 ML IV SCH (14:00)
[2024-07-19] MEDS: ceFAZolin 2 GM/D5W50ml 50 ML IV SCH (14:00)
[2024-07-19] MEDS: MORPHINE SULFATE INJ 2 MG/ml SYRG IV PRN (16:26)
[2024-07-20] VITALS (41 sets, daily range): BP systolic 96–120; BP diastolic 60–77; PULSE 69–102; RESP 15–39; TEMP 98.4–99.5; O2SAT 94–98
[2024-07-20] MEDS: ONDANSETRON HCL 4 MG/2 ML VIAL IV PRN (00:54)
[2024-07-20] MEDS: MORPHINE SULFATE 4 MG/ML SYR/VIAL IV PRN (00:54)
[2024-07-20 04:44] LABS: Basophils # (auto) 0 10 ^3/uL (0-0.2); Eosinophils # (auto) 0 10 ^3/uL (0-0.8); Hematocrit 36.7 % (36.0-46.0); Hemoglobin 12.6 g/dL (12.2-16.2); Lymphocytes # (auto) 0.8 10 ^3/uL (0.4-5.4); Lymphocytes % (auto) 5.2 % (10.0-50.0); Mean Corpuscular Hemoglobin 30.7 pg (28.0-32.0); Mean Corpuscular Hgb Conc. 34.3 g/dL (32.0-36.0); Mean Corpuscular Volume 89.6 fL (80.0-100.0); Monocytes # (auto) 1.1 10 ^3/uL (0-1.3); Monocytes % (auto) 7.7 % (0.0-12.0); Neutrophils # (auto) 12.7 10 ^3/uL (1.6-8.6); Neutrophils % (auto) 87.1 % (37.0-80.0); Platelet Count (auto) 283 10^3/uL (140-450); Red Blood Cells 4.09 10^6/uL (4.0-5.20); Red Cell Distribution Width 15.6 % (11.8-14.3); White Blood Cell 14.6 10^3/uL (4.4-10.8)
[2024-07-20 05:13] LABS: Albumin 3.3 g/dL (3.2-4.8); Alkaline Phosphatase 56 U/L (46-116); Anion Gap 7 (5-15); BUN/Creatinine Ratio 7.5 (10.0-20.0); Carbon Dioxide 26 mmol/L (20-31); Chloride 105 mmol/L (98-107); Potassium 4.6 mmol/L (3.5-5.1); Sodium 138 mmol/L (136-145)
[2024-07-20 05:14] LABS: Bilirubin, Total 0.7 mg/dL (0.2-1.0)
[2024-07-20 05:40] LABS: Alanine Aminotransferase < 9 U/L (7-40); Aspartate Aminotransferase 13 U/L (13-40); Blood Urea Nitrogen 6 mg/dL (9-23); Calcium 8.6 mg/dL (8.7-10.4); Glucose 131 mg/dL (74-106); Total Protein 5.4 g/dL (5.7-8.2)
[2024-07-20] MEDS: PANTOPRAZOLE 40 MG/10 ML VIAL INJ IV SCH (09:28)
[2024-07-20] MEDS: ONDANSETRON HCL 4 MG/2 ML VIAL IV ONE (09:28)
--- NOTE | 2024-07-20 10:11 | DVHPN2 ---
Progress Note Date Seen: Jul 20, 2024 Medical Necessity Reason Pt with a Central, PICC or Fol: No Objective vital signs Vital Sign Date Time Temp Pulse Resp B/P (MAP) Pulse Ox O2 Delivery O2 Flow Rate FiO2 07/20/24 10:02 84 24 114/76 07/20/24 08:00 97 Nasal Cannula* 2 28 07/20/24 04:00 99.5 99.5 Total Intake and Output 07/19/24 07/19/24 07/20/24 15:00 23:00 07:00 Intake Total 960 ml 1140 ml Output Total 240 ml 250 ml 1065 ml Balance -240 ml 710 ml 75 ml medications Current Medications Medications Dose Ordered Sig/Nabeel Route Start Time Stop Time Status Last Admin Dose Admin Sodium Chloride 1,000 ml @ 100 mls/hr Q10H IV 07/19/24 08:15 Cancel Nitroglycerin 0.4 mg Q5MINP PRN SL 07/19/24 08:15 Morphine Sulfate 2 mg Q30M PRN IV 07/19/24 08:15 Levothyroxine Sodium 50 mcg DAILY IV 07/19/24 10:00 07/20/24 09:29 50 MCG Potassium Chloride/Dextrose/ Sod Cl 1,000 ml @ 120 mls/hr Q8H20M IV 07/19/24 11:15 07/20/24 05:30 120 MLS/HR Metronidazole 100 ml @ 100 mls/hr Q8HR IV 07/19/24 14:00 07/20/24 05:28 100 MLS/HR Pantoprazole Sodium 40 mg DAILY IV 07/20/24 10:00 07/20/24 09:28 40 MG Morphine Sulfate 3 mg Q4HPRN PRN IV 07/20/24 00:30 07/20/24 09:30 3 MG Ondansetron HCl 4 mg Q4HPRN PRN IV 07/20/24 00:45 07/20/24 05:30 4 MG Cefazolin Sodium/ Dextrose 50 ml @ 50 mls/hr Q8HR IV 07/20/24 15:00 laboratory and microbiology Laboratory Tests 07/20/24 03:21 Test 07/20/24 03:21 Range/Units Serum Glucose 131 H 74-106 mg/dL Problem List/Assessment/Plan Problem List/Assessment/Plan 07/20/24 patient awake and oriented, fully informed of operative findings and need for adjuvant tretments. abdomen appropriately tender, she is cleared to "down grade"from ICU. keep ngtr in place till pt passes flatus!~ Plan discussed with: Patient, Other MACY ROCHE MD Jul 20, 2024 10:11
[2024-07-20] MEDS: HYDROmorphone HCL 2 MG/ML VL/or syr IV PRN (14:23)
[2024-07-20] MEDS: ceFAZolin 2 GM/D5W50ml 50 ML IV SCH (15:48)
--- NOTE | 2024-07-20 18:46 | DVHPNRES ---
Progress Note Date Seen: Jul 20, 2024 Resident Creating Document: PERRY MIRELES RESIDENT Medical Necessity Reason Pt with a Central, PICC or Fol: Yes The following are medically ne: Elder Catheter Subjective Review of Systems Patient is a 59-year-old female with a past medical history of hypothyroidism, gallstones, hyperlipidemia, psoriatic arthritis presented to the ED with a chief complaint of sudden onset abdominal pain for few hours prior to admission. Patient reports that she was awoke can up by the severe pain around 1:00 a.m. on Friday morning and she had nausea but no vomiting. She reports that she has been having abdominal problems since summer last year, came to the hospital in December 2023 where she was diagnosed with gallstones and biliary colic and was sent home from the ER. She continued to have on and off diarrhea with watery and loose stools, exacerbated by certain foods like leafy vegetables associated with the abdominal pain. Patient denied blood in stools, fever, chills but had episodes of nausea but no vomiting. Past medical history: As per HPI Past Surgical history: Hernia repair, right ankle surgery Social history: Lives with family and denies smoking, alcohol, drug use Home medications: Levothyroxine 100 mcg, methotrexate 2.5 mg, adalimumab, rosuvastatin Review of systems Patient was seen and examined with the bedside Status post exploratory laparotomy with the enteroenterostomy Reports of abdominal tenderness and pain Denies passing flatus or bowel movement Objective vital signs Vital Sign Date Time Temp Pulse Resp B/P (MAP) Pulse Ox O2 Delivery O2 Flow Rate FiO2 07/20/24 16:30 87 22 96/63 (74) 95 07/20/24 16:00 Nasal Cannula* 2 28 07/20/24 11:00 98.6 98.6 Total Intake and Output 07/19/24 07/19/24 07/20/24 15:00 23:00 07:00 Intake Total 960 ml 1260 ml Output Total 240 ml 250 ml 1065 ml Balance -240 ml 710 ml 195 ml medications Current Medications Medications Dose Ordered Sig/Nabeel Route Start Time Stop Time Status Last Admin Dose Admin Sodium Chloride 1,000 ml @ 100 mls/hr Q10H IV 07/19/24 08:15 Cancel Nitroglycerin 0.4 mg Q5MINP PRN SL 07/19/24 08:15 Morphine Sulfate 2 mg Q30M PRN IV 07/19/24 08:15 Levothyroxine Sodium 50 mcg DAILY IV 07/19/24 10:00 07/20/24 09:29 50 MCG Potassium Chloride/Dextrose/ Sod Cl 1,000 ml @ 120 mls/hr Q8H20M IV 07/19/24 11:15 07/20/24 14:33 120 MLS/HR Metronidazole 100 ml @ 100 mls/hr Q8HR IV 07/19/24 14:00 07/20/24 14:23 100 MLS/HR Pantoprazole Sodium 40 mg DAILY IV 07/20/24 10:00 07/20/24 09:28 40 MG Ondansetron HCl 4 mg Q4HPRN PRN IV 07/20/24 00:45 07/20/24 14:23 4 MG Cefazolin Sodium/ Dextrose 50 ml @ 50 mls/hr Q8HR IV 07/20/24 15:00 07/20/24 15:48 50 MLS/HR Hydromorphone HCl 1 mg Q3HPRN PRN IV 07/20/24 14:15 07/20/24 14:23 1 MG Examination Constitutional: Patient was alert and oriented to time, place and person and appears to be in distress because of the abdominal pain Gen - no pallor, no icterus, no cyanosis, no clubbing, no LAD, no edema . Skin - Patients skin is warm and dry. HEENT - normocephalic, atraumatic, moist mucous membranes. Neck - full ROM, no LAD, no JVD Pulmonary - B/L equal breath sounds, no crackles, no wheezing cardiovascular - regular S1,S2 heard, no added sounds, no murmurs heard. GI - status post exploratory laparotomy with the abdominal binder, generalized tenderness to palpation, bowel sounds hypoactive Neurological - Bilateral upper extremity strength 5/5, bilateral lower extremity strength 5/5, no facial droop, normal speech, no tremor, no sensory deficiets. laboratory and microbiology Laboratory Tests 07/20/24 03:21 Test 07/20/24 03:21 Range/Units Serum Glucose 131 H 74-106 mg/dL Microbiology Date/Time Source Procedure Growth Status 07/19/24 09:45 Abdomen Gram Stain - Final Resulted 07/19/24 09:45 Abdomen Anaerobic Culture - Preliminary Resulted 07/19/24 09:45 Abdomen Aerobic Culture - Preliminary Resulted Problem List/Assessment/Plan Problem List/Assessment/Plan Neurology Normal examination Cardiovascular/infectious Sepsis with underlying bowel perforation S/p exploratory laparotomy Lactic acidosis - on cefazolin and metronidazole - IV fluids with KCl/D5W/0.5 NS Gastrointestinal Acute intractable abdominal pain Omental Carcinomatosis ? Carcinoid tumor Small bowel perforation likely ischemic S/p exploratory laparotomy with tumor excision and enteroenterostomy - NPO until patient passes flatus - NG tube to suction - MERVIN drain - pain control with Dilaudid - Protonix Endocrinology H/O hypothyroidism - on levothyroxine 50 mcg daily IV Goals of care discussed with the patient and the daughter for over 25 minutes. Code status: Full code Critical care time spent excluding procedures: 61 minutes Plan discussed with Dr. Blount Plan discussed with: Patient, Daughter, Other (RN ( Yelena )) My Orders My Orders Orders - PERRY MIRELES Procedure Category Date Status Time Transfer Orders XFER 07/20/24 Transmitted 13:40 Date of Service: Jul 20, 2024 Billing Provider: JULIO BLOUNT MD Common Visit Codes: [id number] CARE 30-74 MIN PERRY MIRELES Jul 20, 2024 18:46 JULIO BLOUNT MD Jul 21, 2024 15:57
[2024-07-21] VITALS (8 sets, daily range): BP systolic 95–108; BP diastolic 55–63; PULSE 83–97; RESP 16–19; TEMP 97.9–98.9; O2SAT 92–99
[2024-07-21 07:22] LABS: Basophils # (auto) 0 10 ^3/uL (0-0.2); Basophils % (auto) 0.3 % (0.0-2.0); Eosinophils # (auto) 0 10 ^3/uL (0-0.8); Hematocrit 33.3 % (36.0-46.0); Hemoglobin 11.5 g/dL (12.2-16.2); Lymphocytes # (auto) 0.7 10 ^3/uL (0.4-5.4); Lymphocytes % (auto) 4.7 % (10.0-50.0); Mean Corpuscular Hemoglobin 30.8 pg (28.0-32.0); Mean Corpuscular Hgb Conc. 34.5 g/dL (32.0-36.0); Monocytes # (auto) 1.3 10 ^3/uL (0-1.3); Monocytes % (auto) 8.1 % (0.0-12.0); Neutrophils # (auto) 13.7 10 ^3/uL (1.6-8.6); Neutrophils % (auto) 86.9 % (37.0-80.0); Platelet Count (auto) 249 10^3/uL (140-450); Red Blood Cells 3.75 10^6/uL (4.0-5.20); Red Cell Distribution Width 15.6 % (11.8-14.3); White Blood Cell 15.8 10^3/uL (4.4-10.8)
[2024-07-21 07:29] LABS: Chloride 103 mmol/L (98-107); Potassium 4.2 mmol/L (3.5-5.1); Sodium 137 mmol/L (136-145)
[2024-07-21 07:30] LABS: Anion Gap 6 (5-15); Carbon Dioxide 28 mmol/L (20-31)
[2024-07-21 07:35] LABS: BUN/Creatinine Ratio 7.9 (10.0-20.0); Magnesium 1.8 mg/dL (1.6-2.6)
[2024-07-21 07:44] LABS: Blood Urea Nitrogen 6 mg/dL (9-23); Calcium 8.4 mg/dL (8.7-10.4); Glucose 106 mg/dL (74-106)
--- NOTE | 2024-07-21 07:58 | ECG ---
[facility] Test Date: 2024-07-20 Test Time: 00:36:23 Pat Name: LUCILLE HICKEY Department: ICU Room: 0222T B Gender: F Signals Intelligence Superintendent: SHAILESH : 1965 Requested By: FIDEL NAGY Order Number: [id number] Reading MD: Hemant Márquez Measurements Intervals [place] Rate: 83 P: 69 [place]: 161 QRS: 23 QRSD: 88 T: 59 QT: 371 QTc: 436 Interpretive Statements Sinus rhythm Low voltage, precordial leads Electronically Signed On 07-21-2024 20:34:54 PDT by Hemant Márquez Please click the below link to view image of tracing.
--- NOTE | 2024-07-21 13:57 | DVHPN2 ---
Subjective Date Seen: Jul 21, 2024 Post op day Post op day: 2 Patient reports: No new complaints, Feels better Nursing reports: No new complaints HNT: Normal Cardiovascular: Normal Respiratory: Normal Gastrointestinal: Normal Genitourinary: Normal Musculoskeletal: Normal Neurological: Normal Objective Vitals Vital Sign Date Time Temp Pulse Resp B/P (MAP) Pulse Ox O2 Delivery O2 Flow Rate FiO2 07/21/24 12:50 98.6 83 16 95/61 (72) 99 98.6 07/21/24 08:00 Nasal Cannula* 1 24 Total Intake and Output 07/20/24 07/20/24 07/21/24 15:00 23:00 07:00 Intake Total 960 ml 560 ml 1100 ml Output Total 1060 ml 1270 ml 795 ml Balance -100 ml -710 ml 305 ml Medications Current Medications Medications Dose Ordered Sig/Nabeel Route Start Time Stop Time Status Last Admin Dose Admin Sodium Chloride 1,000 ml @ 100 mls/hr Q10H IV 07/19/24 08:15 Cancel Nitroglycerin 0.4 mg Q5MINP PRN SL 07/19/24 08:15 Morphine Sulfate 2 mg Q30M PRN IV 07/19/24 08:15 Levothyroxine Sodium 50 mcg DAILY IV 07/19/24 10:00 07/21/24 10:00 50 MCG Potassium Chloride/Dextrose/ Sod Cl 1,000 ml @ 120 mls/hr Q8H20M IV 07/19/24 11:15 07/21/24 05:18 120 MLS/HR Metronidazole 100 ml @ 100 mls/hr Q8HR IV 07/19/24 14:00 07/21/24 05:31 100 MLS/HR Pantoprazole Sodium 40 mg DAILY IV 07/20/24 10:00 07/20/24 09:28 40 MG Ondansetron HCl 4 mg Q4HPRN PRN IV 07/20/24 00:45 07/21/24 03:59 4 MG Cefazolin Sodium/ Dextrose 50 ml @ 50 mls/hr Q8HR IV 07/20/24 15:00 07/21/24 05:31 50 MLS/HR Hydromorphone HCl 1 mg Q3HPRN PRN IV 07/20/24 14:15 07/21/24 09:55 1 MG General: Normal, Well developed, Well nourished Head/Eyes: Normal ENT: Normal Neck: Normal, Supple, No JVD Lungs: Normal, Normal inspection Cardiovascular: Normal, Regular rate and rhythm, Normal heart sound Abdominal: Normal, Soft, Other (Oscar drain) Musculoskeletal: Normal Extremities: Normal, No clubbing, Normal range of motion Skin: Normal, Normal inspection, Normal color Neurological: Normal Labs and Microbiology Laboratory Tests 07/21/24 06:46 Test 07/21/24 06:46 Range/Units Serum Glucose 106 74-106 mg/dL Ass/Plan Labs and/or images reviewed: Labs reviewed by me, Image(s) reviewed by me Problem List Neurology Normal examination Cardiovascular/infectious Sepsis with underlying bowel perforation S/p exploratory laparotomy Lactic acidosis - on cefazolin and metronidazole - IV fluids with KCl/D5W/0.5 NS Gastrointestinal Acute intractable abdominal pain Omental Carcinomatosis ? Carcinoid tumor Small bowel perforation likely ischemic S/p exploratory laparotomy with tumor excision and enteroenterostomy - NPO until patient passes flatus - NG tube to suction - OSCAR drain - pain control with Dilaudid - Protonix Endocrinology H/O hypothyroidism - on levothyroxine 50 mcg daily IV Goals of care discussed with the patient and the daughter for over 25 minutes. Code status: Full code Critical care time spent excluding procedures: 81 minutes Plan discussed with Dr. Morfin Problems(with codes): (1) Abdominal pain (2) Small bowel perforation Assessment/Plan s/p exploratory laparotomy, bowel resection POD#2 abdomen soft, non distended, appropriately tender, OSCAR drain serous sanaguinous fluid no flatus, no BM, denies nausea or vomiting, wound clean dry and intact Plan: NPO except ice chips NG to LCS physical therapy incentive spirometer Prognosis: Good Plan discussed with patient , Dr. Eduardo Visit Coding Surgery Date of Service if different f: Jul 21, 2024 Billing Provider: MACY EDUARDO MD Surgery Visit Codes: [id number] INP/OBS CARE(HIGH) GERDA SALMON LOAN TELLER Jul 21, 2024 13:57
--- NOTE | 2024-07-21 19:37 | DVHPNRES ---
Progress Note Date Seen: Jul 21, 2024 Resident Creating Document: PERRY MIRELES RESIDENT Medical Necessity Reason Pt with a Central, PICC or Fol: Yes The following are medically ne: Elder Catheter Subjective Review of Systems Patient is a 59-year-old female with a past medical history of hypothyroidism, gallstones, hyperlipidemia, psoriatic arthritis presented to the ED with a chief complaint of sudden onset abdominal pain for few hours prior to admission. Patient reports that she was awoke can up by the severe pain around 1:00 a.m. on Friday morning and she had nausea but no vomiting. She reports that she has been having abdominal problems since summer last year, came to the hospital in December 2023 where she was diagnosed with gallstones and biliary colic and was sent home from the ER. She continued to have on and off diarrhea with watery and loose stools, exacerbated by certain foods like leafy vegetables associated with the abdominal pain. Patient denied blood in stools, fever, chills but had episodes of nausea but no vomiting. Past medical history: As per HPI Past Surgical history: Hernia repair, right ankle surgery Social history: Lives with family and denies smoking, alcohol, drug use Home medications: Levothyroxine 100 mcg, methotrexate 2.5 mg, adalimumab, rosuvastatin Review of systems Patient was seen and examined with the bedside Status post exploratory laparotomy with the enteroenterostomy still of abdominal tenderness and pain but gets relief with pain meds Denied passing flatus or bowel movement Objective vital signs Vital Sign Date Time Temp Pulse Resp B/P (MAP) Pulse Ox O2 Delivery O2 Flow Rate FiO2 07/21/24 16:54 98.4 94 16 99/55 (70) 92 98.4 07/21/24 08:00 Nasal Cannula* 1 24 Total Intake and Output 07/20/24 07/20/24 07/21/24 15:00 23:00 07:00 Intake Total 960 ml 560 ml 1100 ml Output Total 1060 ml 1270 ml 795 ml Balance -100 ml -710 ml 305 ml medications Current Medications Medications Dose Ordered Sig/Nabeel Route Start Time Stop Time Status Last Admin Dose Admin Sodium Chloride 1,000 ml @ 100 mls/hr Q10H IV 07/19/24 08:15 Cancel Nitroglycerin 0.4 mg Q5MINP PRN SL 07/19/24 08:15 Morphine Sulfate 2 mg Q30M PRN IV 07/19/24 08:15 Levothyroxine Sodium 50 mcg DAILY IV 07/19/24 10:00 07/21/24 10:00 50 MCG Potassium Chloride/Dextrose/ Sod Cl 1,000 ml @ 120 mls/hr Q8H20M IV 07/19/24 11:15 07/21/24 15:30 120 MLS/HR Metronidazole 100 ml @ 100 mls/hr Q8HR IV 07/19/24 14:00 07/21/24 15:30 100 MLS/HR Pantoprazole Sodium 40 mg DAILY IV 07/20/24 10:00 07/20/24 09:28 40 MG Ondansetron HCl 4 mg Q4HPRN PRN IV 07/20/24 00:45 07/21/24 03:59 4 MG Cefazolin Sodium/ Dextrose 50 ml @ 50 mls/hr Q8HR IV 07/20/24 15:00 07/21/24 15:30 50 MLS/HR Hydromorphone HCl 1 mg Q3HPRN PRN IV 07/20/24 14:15 07/21/24 14:07 1 MG Examination Constitutional: Patient was alert and oriented to time, place and person and appears to be in distress because of the abdominal pain Gen - no pallor, no icterus, no cyanosis, no clubbing, no LAD, no edema . Skin - Patients skin is warm and dry. HEENT - normocephalic, atraumatic, moist mucous membranes. Neck - full ROM, no LAD, no JVD Pulmonary - B/L equal breath sounds, no crackles, no wheezing cardiovascular - regular S1,S2 heard, no added sounds, no murmurs heard. GI - status post exploratory laparotomy with the abdominal binder, generalized tenderness to palpation, bowel sounds hypoactive Neurological - Bilateral upper extremity strength 5/5, bilateral lower extremity strength 5/5, no facial droop, normal speech, no tremor, no sensory deficiets. 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 Code status: Full code time spent : 51 minutes Plan discussed with Dr. Blount Plan discussed with: Patient, Other (RN ( Edel )) Date of Service: Jul 21, 2024 Billing Provider: JULIO BLOUNT MD Common Visit Codes: [id number] INP/OBS CARE(HIGH) Secondary Visit Codes: [id number] CARE PLAN 30 MINUTES PERRY MIRELES RESIDENT Jul 21, 2024 19:37 JULIO BLOUNT MD Jul 22, 2024 11:14
[2024-07-22] VITALS (8 sets, daily range): BP systolic 99–121; BP diastolic 58–72; PULSE 76–90; RESP 16–20; TEMP 98.3–98.8; O2SAT 92–100
[2024-07-22 07:22] LABS: Chloride 101 mmol/L (98-107); Potassium 3.7 mmol/L (3.5-5.1)
[2024-07-22 07:23] LABS: Anion Gap 5 (5-15); Carbon Dioxide 29 mmol/L (20-31)
[2024-07-22 07:25] LABS: Basophils # (auto) 0 10 ^3/uL (0-0.2); Basophils % (auto) 0.2 % (0.0-2.0); Calcium 8.2 mg/dL (8.7-10.4); Eosinophils # (auto) 0 10 ^3/uL (0-0.8); Eosinophils % (auto) 0.3 % (0.0-7.0); Hematocrit 34.5 % (36.0-46.0); Hemoglobin 11.7 g/dL (12.2-16.2); Lymphocytes # (auto) 0.4 10 ^3/uL (0.4-5.4); Lymphocytes % (auto) 3.9 % (10.0-50.0); Mean Corpuscular Hemoglobin 30.2 pg (28.0-32.0); Monocytes # (auto) 0.9 10 ^3/uL (0-1.3); Monocytes % (auto) 7.8 % (0.0-12.0); Neutrophils # (auto) 10.1 10 ^3/uL (1.6-8.6); Neutrophils % (auto) 87.8 % (37.0-80.0); Platelet Count (auto) 266 10^3/uL (140-450); Red Blood Cells 3.87 10^6/uL (4.0-5.20); Red Cell Distribution Width 15.5 % (11.8-14.3); Sodium 135 mmol/L (136-145); White Blood Cell 11.5 10^3/uL (4.4-10.8)
[2024-07-22 07:28] LABS: BUN/Creatinine Ratio 8.9 (10.0-20.0); Blood Urea Nitrogen 5 mg/dL (9-23); Glucose 117 mg/dL (74-106)
--- NOTE | 2024-07-22 10:37 | DVHPN2 ---
Progress Note Date Seen: Jul 22, 2024 Medical Necessity Reason Pt with a Central, PICC or Fol: Yes The following are medically ne: Elder Catheter Objective vital signs Vital Sign Date Time Temp Pulse Resp B/P (MAP) Pulse Ox O2 Delivery O2 Flow Rate FiO2 07/22/24 08:58 98.7 76 20 99/58 (72) 95 98.7 07/21/24 20:00 Nasal Cannula* 1 24 Total Intake and Output 07/21/24 07/21/24 07/22/24 15:00 23:00 07:00 Intake Total 50 ml 900 ml 150 ml Output Total 700 ml 175 ml Balance 50 ml 200 ml -25 ml medications Current Medications Medications Dose Ordered Sig/Nabeel Route Start Time Stop Time Status Last Admin Dose Admin Sodium Chloride 1,000 ml @ 100 mls/hr Q10H IV 07/19/24 08:15 Cancel Nitroglycerin 0.4 mg Q5MINP PRN SL 07/19/24 08:15 Morphine Sulfate 2 mg Q30M PRN IV 07/19/24 08:15 Levothyroxine Sodium 50 mcg DAILY IV 07/19/24 10:00 07/22/24 08:41 50 MCG Potassium Chloride/Dextrose/ Sod Cl 1,000 ml @ 120 mls/hr Q8H20M IV 07/19/24 11:15 07/22/24 06:17 120 MLS/HR Metronidazole 100 ml @ 100 mls/hr Q8HR IV 07/19/24 14:00 07/22/24 05:46 100 MLS/HR Pantoprazole Sodium 40 mg DAILY IV 07/20/24 10:00 07/22/24 08:41 40 MG Ondansetron HCl 4 mg Q4HPRN PRN IV 07/20/24 00:45 07/22/24 05:51 4 MG Cefazolin Sodium/ Dextrose 50 ml @ 50 mls/hr Q8HR IV 07/20/24 15:00 07/22/24 05:52 50 MLS/HR Hydromorphone HCl 1 mg Q3HPRN PRN IV 07/20/24 14:15 07/22/24 05:51 1 MG laboratory and microbiology Laboratory Tests 07/22/24 06:38 Test 07/22/24 06:38 Range/Units Serum Glucose 117 H 74-106 mg/dL Problem List/Assessment/Plan Problem List/Assessment/Plan 07/20/24 patient awake and oriented, fully informed of operative findings and need for adjuvant tretments. abdomen appropriately tender, she is cleared to "down grade"from ICU. keep ngtr in place till pt passes flatus!~ 07/22/24 NO FLATUS, NO BM, WOUND CL;YOLI AND WELL APPROXIMATED, ABDOMEN SLIGHTLY DISTENDED, APPROPRIATELY TENDER, WBC IMPROVED, AFEBRILE, IF NO BOWEL ACTIVITY WITH NEXT 48 HOURS WILL GET GASTROGRAFIN BOWEL SERIES Plan discussed with: Patient, Daughter MACY ROCHE MD Jul 22, 2024 10:37
[2024-07-22] MEDS: D5W/SOD CHL 0.45%/KCL 20MEQ 1,000 ML IV SCH (11:15)
[2024-07-22 14:51] LABS: INR 1.13 (0.9-1.15); Partial Thromboplastin Time 31.6 SEC (24.5-34.5); Prothrombin Time 11.8 sec (9.3-11.8)
[2024-07-22] MEDS ORDERED: TPN PER PHARMACY 0 ML IV SCH (18:45)
--- NOTE | 2024-07-22 19:08 | DVHPNRES ---
Progress Note Date Seen: Jul 22, 2024 Resident Creating Document: PERRY MIRELES RESIDENT Medical Necessity Reason Pt with a Central, PICC or Fol: Yes The following are medically ne: Elder Catheter Subjective Review of Systems [facility] Patient is a 59-year-old female with a past medical history of hypothyroidism, gallstones, hyperlipidemia, psoriatic arthritis presented to the ED with a chief complaint of sudden onset abdominal pain for few hours prior to admission. Patient reports that she was awoke can up by the severe pain around 1:00 a.m. on Friday morning and she had nausea but no vomiting. She reports that she has been having abdominal problems since summer last year, came to the hospital in December 2023 where she was diagnosed with gallstones and biliary colic and was sent home from the ER. She continued to have on and off diarrhea with watery and loose stools, exacerbated by certain foods like leafy vegetables associated with the abdominal pain. Patient denied blood in stools, fever, chills but had episodes of nausea but no vomiting. Past medical history: As per HPI Past Surgical history: Hernia repair, right ankle surgery Social history: Lives with family and denies smoking, alcohol, drug use Home medications: Levothyroxine 100 mcg, methotrexate 2.5 mg, adalimumab, rosuvastatin Review of systems Patient was seen and examined with the bedside Status post exploratory laparotomy with the enteroenterostomy c/o abdominal tenderness and pain but gets relief with pain meds Denied passing flatus or bowel movement started on parenteral nutrition with TPN Objective vital signs Vital Sign Date Time Temp Pulse Resp B/P (MAP) Pulse Ox O2 Delivery O2 Flow Rate FiO2 07/22/24 17:28 98.3 86 19 114/66 (82) 95 98.3 07/21/24 20:00 Nasal Cannula* 1 24 Total Intake and Output 07/21/24 07/21/24 07/22/24 15:00 23:00 07:00 Intake Total 50 ml 900 ml 150 ml Output Total 700 ml 175 ml Balance 50 ml 200 ml -25 ml medications Current Medications Medications Dose Ordered Sig/Nabeel Route Start Time Stop Time Status Last Admin Dose Admin Sodium Chloride 1,000 ml @ 100 mls/hr Q10H IV 07/19/24 08:15 Cancel Nitroglycerin 0.4 mg Q5MINP PRN SL 07/19/24 08:15 Morphine Sulfate 2 mg Q30M PRN IV 07/19/24 08:15 Levothyroxine Sodium 50 mcg DAILY IV 07/19/24 10:00 07/22/24 08:41 50 MCG Metronidazole 100 ml @ 100 mls/hr Q8HR IV 07/19/24 14:00 07/22/24 14:30 100 MLS/HR Pantoprazole Sodium 40 mg DAILY IV 07/20/24 10:00 07/22/24 08:41 40 MG Ondansetron HCl 4 mg Q4HPRN PRN IV 07/20/24 00:45 07/22/24 11:52 4 MG Cefazolin Sodium/ Dextrose 50 ml @ 50 mls/hr Q8HR IV 07/20/24 15:00 07/22/24 13:24 50 MLS/HR Hydromorphone HCl 1 mg Q3HPRN PRN IV 07/20/24 14:15 07/22/24 16:27 1 MG Potassium Chloride/Dextrose/ Sod Cl 1,000 ml @ 100 mls/hr Q10H IV 07/22/24 11:15 07/22/24 11:15 100 MLS/HR Amino Acids 0 ml @ 0 mls/hr PER PHARMACY IV 07/22/24 18:45 Amino Acids/ Electrolytes/ Dextrose 1,000 ml @ 41 mls/hr DAILY@2200 IV 07/22/24 22:00 Diagnostic Test (Pha) 1 strip Q6HR 07/23/24 00:00 Insulin Human Regular FOLLOW SLIDING SCALE Q6HR SC 07/23/24 00:00 Dextrose 50 ml UD IV 07/22/24 22:00 Examination Constitutional: Patient was alert and oriented to time, place and person and appears to be in distress because of the abdominal pain Gen - no pallor, no icterus, no cyanosis, no clubbing, no LAD, no edema . Skin - Patients skin is warm and dry. HEENT - normocephalic, atraumatic, moist mucous membranes. Neck - full ROM, no LAD, no JVD Pulmonary - B/L equal breath sounds, no crackles, no wheezing cardiovascular - regular S1,S2 heard, no added sounds, no murmurs heard. GI - status post exploratory laparotomy with the abdominal binder, generalized tenderness to palpation, bowel sounds hypoactive Neurological - Bilateral upper extremity strength 5/5, bilateral lower extremity strength 4/5, no facial droop, normal speech, no tremor, no sensory deficiets. 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 Code status: Full code time spent : 53 minutes Plan discussed with Dr. Blount Plan discussed with: Patient ( ) Dietary Evaluation Review Comments: TPN per pharmacy to meet 75% of her needs. until GI heals and able to accept TF or PO feeding Expected Outcomes/Goals: maintain wt. Date of Service: Jul 22, 2024 Billing Provider: JULIO BLOUNT MD Common Visit Codes: [id number] INP/OBS CARE(HIGH) Secondary Visit Codes: [id number] CARE PLAN 30 MINUTES PERRY MIRELES RESIDENT Jul 22, 2024 19:08 JULIO BLOUNT MD Jul 24, 2024 21:26
[2024-07-22] MEDS ORDERED: DEXTROSE (50%) 50ML SYRG IV SCH (22:00)
[2024-07-22] MEDS: AMINO ACID INFUSION IN D10W 1,000 ML IV SCH (22:22)
[2024-07-23] MEDS: InsuLIN REG 1unit/0.01ml Soln (100units/ml) SC SCH
[2024-07-23] MEDS: ACCU-CHEK COMFORT CURVE STRIP VI SCH (00:30)
[2024-07-23 00:47] VITALS: BP 103/63; PULSE 78; RESP 20; TEMP 98.4; O2SAT 92
[2024-07-23 04:50] VITALS: BP 122/69; PULSE 80; RESP 20; TEMP 98.2; O2SAT 91
[2024-07-23 08:00] VITALS: PULSE 84; PULSE 86; RESP 18
[2024-07-23 08:07] LABS: Chloride 101 mmol/L (98-107)
[2024-07-23 08:08] LABS: Anion Gap 8 (5-15); Carbon Dioxide 27 mmol/L (20-31)
[2024-07-23 08:09] LABS: Potassium 3.4 mmol/L (3.5-5.1); Sodium 136 mmol/L (136-145)
[2024-07-23 08:11] LABS: Basophils # (auto) 0 10 ^3/uL (0-0.2); Basophils % (auto) 0.3 % (0.0-2.0); Eosinophils # (auto) 0.1 10 ^3/uL (0-0.8); Eosinophils % (auto) 1.3 % (0.0-7.0); Hematocrit 32.8 % (36.0-46.0); Hemoglobin 11.5 g/dL (12.2-16.2); Lymphocytes # (auto) 0.5 10 ^3/uL (0.4-5.4); Lymphocytes % (auto) 5.1 % (10.0-50.0); Mean Corpuscular Hemoglobin 31.3 pg (28.0-32.0); Mean Corpuscular Hgb Conc. 35.2 g/dL (32.0-36.0); Monocytes # (auto) 0.9 10 ^3/uL (0-1.3); Monocytes % (auto) 9.5 % (0.0-12.0); Neutrophils # (auto) 8.1 10 ^3/uL (1.6-8.6); Neutrophils % (auto) 83.8 % (37.0-80.0); Nucleated Red Blood Cells % 0.1 %; Platelet Count (auto) 306 10^3/uL (140-450); Red Blood Cells 3.69 10^6/uL (4.0-5.20); Red Cell Distribution Width 15.5 % (11.8-14.3); White Blood Cell 9.7 10^3/uL (4.4-10.8)
[2024-07-23 08:16] LABS: Phosphorus 2.8 mg/dL (2.4-5.1)
[2024-07-23 08:19] LABS: Blood Urea Nitrogen 7 mg/dL (9-23); Glucose 158 mg/dL (74-106)
[2024-07-23 08:26] LABS: BUN/Creatinine Ratio 13.2 (10.0-20.0)
[2024-07-23 09:00] VITALS: BP 101/57; PULSE 79; RESP 17; TEMP 98.1; O2SAT 96
--- NOTE | 2024-07-23 13:18 | DVHPN2 ---
Progress Note Date Seen: Jul 23, 2024 Medical Necessity Reason Pt with a Central, PICC or Fol: Yes The following are medically ne: Elder Catheter Objective vital signs Vital Sign Date Time Temp Pulse Resp B/P (MAP) Pulse Ox O2 Delivery O2 Flow Rate FiO2 07/23/24 11:49 85 18 130/68 07/23/24 09:00 98.1 96 98.1 07/22/24 20:00 Nasal Cannula* 1 24 Total Intake and Output 07/22/24 07/22/24 07/23/24 15:00 23:00 07:00 Intake Total 100 ml 200 ml 150 ml Output Total 140 ml 80 ml 100 ml Balance -40 ml 120 ml 50 ml medications Current Medications Medications Dose Ordered Sig/Nabeel Route Start Time Stop Time Status Last Admin Dose Admin Sodium Chloride 1,000 ml @ 100 mls/hr Q10H IV 07/19/24 08:15 Cancel Nitroglycerin 0.4 mg Q5MINP PRN SL 07/19/24 08:15 Morphine Sulfate 2 mg Q30M PRN IV 07/19/24 08:15 Levothyroxine Sodium 50 mcg DAILY IV 07/19/24 10:00 07/23/24 11:49 50 MCG Metronidazole 100 ml @ 100 mls/hr Q8HR IV 07/19/24 14:00 07/23/24 06:14 100 MLS/HR Pantoprazole Sodium 40 mg DAILY IV 07/20/24 10:00 07/23/24 11:48 40 MG Ondansetron HCl 4 mg Q4HPRN PRN IV 07/20/24 00:45 07/23/24 11:47 4 MG Cefazolin Sodium/ Dextrose 50 ml @ 50 mls/hr Q8HR IV 07/20/24 15:00 07/23/24 06:15 50 MLS/HR Hydromorphone HCl 1 mg Q3HPRN PRN IV 07/20/24 14:15 07/23/24 11:49 1 MG Potassium Chloride/Dextrose/ Sod Cl 1,000 ml @ 100 mls/hr Q10H IV 07/22/24 11:15 07/23/24 07:57 100 MLS/HR Amino Acids 0 ml @ 0 mls/hr PER PHARMACY IV 07/22/24 18:45 Amino Acids/ Electrolytes/ Dextrose 1,000 ml @ 41 mls/hr DAILY@2200 IV 07/22/24 22:00 07/23/24 21:59 07/22/24 22:22 41 MLS/HR Diagnostic Test (Pha) 1 strip Q6HR 07/23/24 00:00 07/23/24 06:14 1 STRIP Insulin Human Regular FOLLOW SLIDING SCALE Q6HR SC 07/23/24 00:00 07/23/24 07:08 4 UNITS Dextrose 50 ml UD IV 07/22/24 22:00 Fat Emulsion Intravenous 50 ml/ Sodium Chloride 40 meq/Sodium Phosphate 20 meq/ Potassium Chloride 60 meq/ Calcium Gluconate 2.3 meq/Magnesium Sulfate 6 meq/ Multivitamins 10 ml/Chromium/ Copper/Manganese/ Zinc 1 ml/Amino Acids/Dextrose 1,112.4462 ml @ 46 mls/hr [id number] IV 07/23/24 22:00 07/24/24 21:59 laboratory and microbiology Laboratory Tests 07/23/24 06:09 Test 07/23/24 06:09 Range/Units Serum Glucose 158 H 74-106 mg/dL Problem List/Assessment/Plan Problem List/Assessment/Plan 07/20/24 patient awake and oriented, fully informed of operative findings and need for adjuvant tretments. abdomen appropriately tender, she is cleared to "down grade"from ICU. keep ngtr in place till pt passes flatus!~ 07/22/24 NO FLATUS, NO BM, WOUND CL;YOLI AND WELL APPROXIMATED, ABDOMEN SLIGHTLY DISTENDED, APPROPRIATELY TENDER, WBC IMPROVED, AFEBRILE, IF NO BOWEL ACTIVITY WITH NEXT 48 HOURS WILL GET GASTROGRAFIN BOWEL SERIES 07/23/25 STILL NO FLATUS OR BM, WOUNDS OKM ABDOMEN TENDER, WILL GET GASTROGRAFIN SMALL BOWEL SERIES Plan discussed with: Patient Dietary Evaluation Review Comments: TPN per pharmacy to meet 75% of her needs. until GI heals and able to accept TF or PO feeding Expected Outcomes/Goals: maintain wt. MACY ROCHE MD Jul 23, 2024 13:18
[2024-07-23] MEDS: LIDOCAINE 1% (LOCAL ANESTH.) PF 5ml SDV ID ONE (13:45)
[2024-07-23 17:00] VITALS: BP 95/56; PULSE 95; RESP 17; TEMP 97.3; O2SAT 95
[2024-07-23] MEDS: POTASSIUM CHLORIDE 20 MEQ, LIDOCAINE 1% (LOCAL ANESTH.) 2 ML in SODIUM CHL 0.9% 100 ML IV ONE (17:02)
[2024-07-23 21:00] VITALS: BP 100/57; PULSE 89; RESP 18; TEMP 98.1; O2SAT 96
[2024-07-23] MEDS: SODIUM CHLOR 0.9% PF (SALINE LOCK) 10ML VIAL/SYR IV SCH (21:55)
--- NOTE | 2024-07-23 22:31 | DVHPNRES ---
Progress Note Date Seen: Jul 23, 2024 Resident Creating Document: PERRY MIRELES RESIDENT Medical Necessity Reason Pt with a Central, PICC or Fol: Yes The following are medically ne: Elder Catheter Subjective Review of Systems [facility] Patient is a 59-year-old female with a past medical history of hypothyroidism, gallstones, hyperlipidemia, psoriatic arthritis presented to the ED with a chief complaint of sudden onset abdominal pain for few hours prior to admission. Patient reports that she was awoke can up by the severe pain around 1:00 a.m. on Friday morning and she had nausea but no vomiting. She reports that she has been having abdominal problems since summer last year, came to the hospital in December 2023 where she was diagnosed with gallstones and biliary colic and was sent home from the ER. She continued to have on and off diarrhea with watery and loose stools, exacerbated by certain foods like leafy vegetables associated with the abdominal pain. Patient denied blood in stools, fever, chills but had episodes of nausea but no vomiting. Past medical history: As per HPI Past Surgical history: Hernia repair, right ankle surgery Social history: Lives with family and denies smoking, alcohol, drug use Home medications: Levothyroxine 100 mcg, methotrexate 2.5 mg, adalimumab, rosuvastatin Review of systems Patient was seen and examined with the bedside Status post exploratory laparotomy with the enteroenterostomy c/o abdominal tenderness and pain but gets relief with pain meds Denied passing flatus or bowel movement started on parenteral nutrition with TPN Objective vital signs Vital Sign Date Time Temp Pulse Resp B/P (MAP) Pulse Ox O2 Delivery O2 Flow Rate FiO2 07/23/24 20:00 Nasal Cannula* 1 24 07/23/24 19:03 88 17 130/74 07/23/24 17:00 97.3 95 97.3 Total Intake and Output 07/22/24 07/22/24 07/23/24 15:00 23:00 07:00 Intake Total 100 ml 200 ml 150 ml Output Total 140 ml 80 ml 100 ml Balance -40 ml 120 ml 50 ml medications Current Medications Medications Dose Ordered Sig/Nabeel Route Start Time Stop Time Status Last Admin Dose Admin Sodium Chloride 1,000 ml @ 100 mls/hr Q10H IV 07/19/24 08:15 Cancel Levothyroxine Sodium 50 mcg DAILY IV 07/19/24 10:00 07/23/24 11:49 50 MCG Metronidazole 100 ml @ 100 mls/hr Q8HR IV 07/19/24 14:00 07/23/24 17:03 100 MLS/HR Pantoprazole Sodium 40 mg DAILY IV 07/20/24 10:00 07/23/24 11:48 40 MG Ondansetron HCl 4 mg Q4HPRN PRN IV 07/20/24 00:45 07/23/24 19:02 4 MG Cefazolin Sodium/ Dextrose 50 ml @ 50 mls/hr Q8HR IV 07/20/24 15:00 07/23/24 21:51 50 MLS/HR Hydromorphone HCl 1 mg Q3HPRN PRN IV 07/20/24 14:15 07/23/24 19:03 1 MG Potassium Chloride/Dextrose/ Sod Cl 1,000 ml @ 100 mls/hr Q10H IV 07/22/24 11:15 07/23/24 17:20 100 MLS/HR Amino Acids 0 ml @ 0 mls/hr PER PHARMACY IV 07/22/24 18:45 Diagnostic Test (Pha) 1 strip Q6HR 07/23/24 00:00 07/23/24 18:00 1 STRIP Insulin Human Regular FOLLOW SLIDING SCALE Q6HR SC 07/23/24 00:00 07/23/24 07:08 4 UNITS Dextrose 50 ml UD IV 07/22/24 22:00 Fat Emulsion Intravenous 50 ml/ Sodium Chloride 40 meq/Sodium Phosphate 20 meq/ Potassium Chloride 60 meq/ Calcium Gluconate 2.3 meq/Magnesium Sulfate 6 meq/ Multivitamins 10 ml/Chromium/ Copper/Manganese/ Zinc 1 ml/Amino Acids/Dextrose 1,112.4462 ml @ 46 mls/hr [id number] IV 07/23/24 22:00 07/24/24 21:59 Sodium Chloride 10 ml QSHIFT@10,22 IV 07/23/24 22:00 07/23/24 21:55 10 ML Examination Constitutional: Patient was alert and oriented to time, place and person and appears to be in distress because of the abdominal pain Gen - no pallor, no icterus, no cyanosis, no clubbing, no LAD, no edema . Skin - Patients skin is warm and dry. HEENT - normocephalic, atraumatic, moist mucous membranes. Neck - full ROM, no LAD, no JVD Pulmonary - B/L equal breath sounds, no crackles, no wheezing cardiovascular - regular S1,S2 heard, no added sounds, no murmurs heard. GI - status post exploratory laparotomy with the abdominal binder, generalized tenderness to palpation, bowel sounds hypoactive Neurological - Bilateral upper extremity strength 5/5, bilateral lower extremity strength 4/5, no facial droop, normal speech, no tremor, no sensory deficiets. 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 Code status: Full code time spent : 33 minutes Plan discussed with Dr. Tolentino Plan discussed with: Patient, Daughter My Orders My Orders Orders - PERRY MIRELES RESIDENT Procedure Category Date Status Time * Hematology/Oncology CONS 07/23/24 Transmitted Consult 15:47 Discontinue Tele KAREN 07/23/24 In Process 15:49 Transfer Orders XFER 07/23/24 Transmitted 15:49 Dietary Evaluation Review Comments: TPN per pharmacy to meet 75% of her needs. until GI heals and able to accept TF or PO feeding Expected Outcomes/Goals: maintain wt. PERRY MIRELES RESIDENT Jul 23, 2024 22:31
[2024-07-23] MEDS: SODIUM PHOSPHATES IV NR (23:00)
[2024-07-23] MEDS: [UNRECOGNIZED DRUG - OTHER] IV NR (23:00)
[2024-07-23] MEDS: SODIUM CHLORIDE IV NR (23:00)
[2024-07-23] MEDS: FAT EMULSION IV NR (23:00)
[2024-07-24 05:00] VITALS: BP 106/67; PULSE 83; RESP 18; TEMP 98.7; O2SAT 99
--- NOTE | 2024-07-24 05:13 | DVH ---
Procedure: XY SMALL BOWEL SERIES-W GASTROGRA Reason for study/Clinical History: R/O POST OP BOWEL LEAK Comparison Study: CT 07/19/2024 Technique: Single contrast small bowel series performed. FINDINGS/IMPRESSION: Preliminary view of the abdomen demonstrates enteric tube tip within the stomach. There are mildly p rominent small bowel in the mid abdomen. Residual contrast is noted in the right colon. 60 cc of Gastrografin was administered via NG tube. Initial image at 5 minutes demonstrates contrast within the stomach and duodenum. At 3 hours, there is dilute gastrografin within proximal to mid smal l bowel loops, not within distal loops, and not within the colon. Surgical drain is noted in the right lower quadrant.
[2024-07-24 06:35] LABS: Basophils # (auto) 0.1 10 ^3/uL (0-0.2); Basophils % (auto) 0.7 % (0.0-2.0); Eosinophils # (auto) 0.3 10 ^3/uL (0-0.8); Eosinophils % (auto) 2.6 % (0.0-7.0); Hematocrit 31.6 % (36.0-46.0); Hemoglobin 11.2 g/dL (12.2-16.2); Lymphocytes # (auto) 0.8 10 ^3/uL (0.4-5.4); Lymphocytes % (auto) 8.2 % (10.0-50.0); Mean Corpuscular Hemoglobin 31.2 pg (28.0-32.0); Mean Corpuscular Hgb Conc. 35.3 g/dL (32.0-36.0); Mean Corpuscular Volume 88.4 fL (80.0-100.0); Monocytes # (auto) 1.2 10 ^3/uL (0-1.3); Monocytes % (auto) 11.4 % (0.0-12.0); Neutrophils # (auto) 7.9 10 ^3/uL (1.6-8.6); Neutrophils % (auto) 77.1 % (37.0-80.0); Platelet Count (auto) 328 10^3/uL (140-450); Red Blood Cells 3.57 10^6/uL (4.0-5.20); Red Cell Distribution Width 15.5 % (11.8-14.3); White Blood Cell 10.3 10^3/uL (4.4-10.8)
[2024-07-24 06:45] LABS: Alkaline Phosphatase 54 U/L (46-116); Anion Gap 6 (5-15); Carbon Dioxide 28 mmol/L (20-31); Chloride 103 mmol/L (98-107); Magnesium 1.9 mg/dL (1.6-2.6); Sodium 137 mmol/L (136-145); Triglycerides 108 mg/dL (< 150)
[2024-07-24 06:46] LABS: Bilirubin, Total 0.3 mg/dL (0.2-1.0)
[2024-07-24 06:54] LABS: Alanine Aminotransferase < 9 U/L (7-40); Albumin 2.9 g/dL (3.2-4.8); Aspartate Aminotransferase 8 U/L (13-40); BUN/Creatinine Ratio 10.2 (10.0-20.0); Blood Urea Nitrogen < 5 mg/dL (9-23); Glucose 160 mg/dL (74-106); Potassium 3.4 mmol/L (3.5-5.1); Total Protein 4.9 g/dL (5.7-8.2)
[2024-07-24 08:00] VITALS: RESP 18; O2SAT 92
--- NOTE | 2024-07-24 08:16 | DVH ---
Indication: R/O POST OP BOWEL LEAK Technique: Single-view abdomen Comparison: 07/23/2024 small-bowel series FINDINGS/IMPRESSION: Nasogastric tube projecting towards the stomach where it is looped upon itself. Right lower quadrant surgical drain. There is contrast within bowel loops that appear to be the ascen ding colon . There is also contrast in the left upper quadrant of the abdomen, location unknown, lik luna splenic flexure region of the colon. Correlate clinically. Dilated loops of small bowel measuring up to 3.6 cm, likely ileus. Pelvic vascular phleboliths. A CT of the abdomen pelvis without contrast can be obtained to further evaluate for postoperative milana k.
[2024-07-24 08:40] VITALS: BP 92/54; PULSE 69; RESP 18; TEMP 98.2; O2SAT 90
--- NOTE | 2024-07-24 09:12 | DVHPN2 ---
Subjective Date Seen: Jul 24, 2024 Post op day Post op day: 4 Patient reports: No new complaints, Feels better Nursing reports: No new complaints HNT: Normal Cardiovascular: Normal Respiratory: Normal Gastrointestinal: Normal Genitourinary: Normal Musculoskeletal: Normal Neurological: Normal Objective Vitals Vital Sign Date Time Temp Pulse Resp B/P (MAP) Pulse Ox O2 Delivery O2 Flow Rate FiO2 07/24/24 08:40 98.2 69 18 92/54 (67) 90 98.2 07/23/24 20:00 Nasal Cannula* 1 24 Total Intake and Output 07/23/24 07/23/24 07/24/24 15:00 23:00 07:00 Intake Total 382 ml 1005 ml 150 ml Output Total 1400 ml 250 ml Balance 382 ml -395 ml -100 ml Medications Current Medications Medications Dose Ordered Sig/Nabeel Route Start Time Stop Time Status Last Admin Dose Admin Sodium Chloride 1,000 ml @ 100 mls/hr Q10H IV 07/19/24 08:15 Cancel Levothyroxine Sodium 50 mcg DAILY IV 07/19/24 10:00 07/23/24 11:49 50 MCG Metronidazole 100 ml @ 100 mls/hr Q8HR IV 07/19/24 14:00 07/24/24 06:40 100 MLS/HR Pantoprazole Sodium 40 mg DAILY IV 07/20/24 10:00 07/23/24 11:48 40 MG Ondansetron HCl 4 mg Q4HPRN PRN IV 07/20/24 00:45 07/24/24 06:20 4 MG Cefazolin Sodium/ Dextrose 50 ml @ 50 mls/hr Q8HR IV 07/20/24 15:00 07/24/24 05:23 50 MLS/HR Hydromorphone HCl 1 mg Q3HPRN PRN IV 07/20/24 14:15 07/24/24 06:40 1 MG Potassium Chloride/Dextrose/ Sod Cl 1,000 ml @ 100 mls/hr Q10H IV 07/22/24 11:15 07/24/24 02:20 100 MLS/HR Amino Acids 0 ml @ 0 mls/hr PER PHARMACY IV 07/22/24 18:45 Diagnostic Test (Pha) 1 strip Q6HR 07/23/24 00:00 07/24/24 06:07 1 STRIP Insulin Human Regular FOLLOW SLIDING SCALE Q6HR SC 07/23/24 00:00 07/24/24 06:19 4 UNITS Dextrose 50 ml UD IV 07/22/24 22:00 Fat Emulsion Intravenous 50 ml/ Sodium Chloride 40 meq/Sodium Phosphate 20 meq/ Potassium Chloride 60 meq/ Calcium Gluconate 2.3 meq/Magnesium Sulfate 6 meq/ Multivitamins 10 ml/Chromium/ Copper/Manganese/ Zinc 1 ml/Amino Acids/Dextrose 1,112.4462 ml @ 46 mls/hr [id number] IV 07/23/24 22:00 07/24/24 21:59 07/23/24 23:00 46 MLS/HR Sodium Chloride 10 ml QSHIFT@10,22 IV 07/23/24 22:00 07/23/24 21:55 10 ML General: Normal, Well developed, Well nourished Head/Eyes: Normal ENT: Normal Neck: Normal, Supple, No JVD Lungs: Normal, Normal inspection Cardiovascular: Normal, Regular rate and rhythm, Normal heart sound Abdominal: Normal, Soft, Other (Oscar drain) Musculoskeletal: Normal Extremities: Normal, No clubbing, Normal range of motion Skin: Normal, Normal inspection, Normal color Neurological: Normal Labs and Microbiology Laboratory Tests 07/24/24 05:57 Test 07/24/24 05:57 Range/Units Serum Glucose 160 H 74-106 mg/dL Ass/Plan Labs and/or images reviewed: Labs reviewed by me, Image(s) reviewed by me Problem List Cardiovascular/infectious Sepsis with underlying bowel perforation S/p exploratory laparotomy Lactic acidosis - on cefazolin and metronidazole - IV fluids with KCl/D5W/0.5 NS Gastrointestinal Acute intractable abdominal pain 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 Code status: Full code time spent : 33 minutes Plan discussed with Dr. Tolentino Assessment/Plan s/p exploratory laparotomy, bowel resection POD#2 abdomen soft, non distended, appropriately tender, OSCAR drain serous sanaguinous fluid no flatus, no BM, denies nausea or vomiting, wound clean dry and intact Plan: NPO except ice chips NG to [facility] physical therapy incentive spirometer 07/24/24 s/p exploratory laparotomy, bowel resection ABDOMEN SOFT, NON DISTENDED, APPROPRIATELY TENDER LABS AND IMAGE REPORTS REVIEWED NO BM, NO FLATUS PLAN: PATIENT TO AMBULATE EVERY 4 HOURS WITH ASSISTANCE OF FAMILY , PT , NURSE NGT TO [facility] NPO EXCEPT ICE CHIPS CONTINUE IV HYDRATION AND ANTIBIOTICS Prognosis: Good Plan discussed with PATIENT, DR ROCHE Visit Coding Surgery Date of Service if different f: Jul 24, 2024 Billing Provider: MACY ROCHE MD Surgery Visit Codes: [id number] INP/OBS CARE(HIGH) GERDA SALMON [employer] Jul 24, 2024 09:12
[2024-07-24] MEDS: POTASSIUM PHOSPHATE 22 MEQ in SODIUM CHL 0.9% 100 ML IV ONE (11:00)
[2024-07-24 13:00] VITALS: BP 109/71; PULSE 77; RESP 17; TEMP 98; O2SAT 91
[2024-07-24] MEDS ORDERED: POTASSIUM PHOSPHATE 22 MEQ in SODIUM CHL 0.9% 100 ML IV ONE (13:45)
[2024-07-24 16:59] VITALS: BP 94/60; PULSE 80; RESP 18; TEMP 97.9; O2SAT 90
[2024-07-24] MEDS: LORazepam 2MG/ML-1ML VIAL IV SCH (18:04)
--- NOTE | 2024-07-24 19:02 | DVHPN2 ---
Subjective Update 07/24 07/24-patient in Med surge now, still has NG tube, not passing any bowel movements or gas. Surgery following wants to stop all opiates and continue watching. Patient in uncontrolled pain we will start p.r.n. IV Toradol 15 q.4 H and scheduled Ativan 1 mg q.6 as off-label for pain. Otherwise continue primary team's management and appreciate surgical recs Reviewed: H&P Changes from previous H/P or p: No Changes General: Per HPI Eyes: No Pain, No Vision change, No Conjunctivae inflammation, No Eyelid inflammation, No Other, No Redness ENT: No Ear pain, No Ear discharge, No Nose pain, No Nose discharge, No Nose congestion, No Mouth pain, No Mouth swelling, No Throat pain, No Throat swelling, No Other Cardiovascular: No Chest Pain, No Palpitations, No Orthopnea, No Paroxysmal Noc. Dyspnea, No Edema, No Lt Headedness, No Other Respiratory: No Cough, No Dry, No Shortness of breath, No SOB with excertion, No Wheezing, No Hemoptysis, No Pleuritic Pain, No Sputum, No Other Gastrointestinal: No Nausea, No Vomiting; Abdominal Pain, Diarrhea; No Constipation, No Melena, No Hematochezia, No Other Genitourinary: No Dysuria, No Frequency, No Incontinence, No Hematuria, No Retention, No Other Musculoskeletal: No other, No neck pain, No shoulder pain, No arm pain, No back pain, No hand pain, No leg pain, No foot pain Skin: No Rash, No Lesions, No Jaundice, No Bruising, No Other Objective Vitals Vital Signs Date Time Temp Pulse Resp B/P (MAP) Pulse Ox O2 Delivery O2 Flow Rate FiO2 07/24/24 17:03 79 17 131/70 07/24/24 16:59 97.9 90 97.9 07/24/24 08:00 Room Air* 0 21 Intake/Output Intake and Output 07/24/24 07:00 Intake Total 1537 ml Output Total 1650 ml Balance -113 ml Intake Oral 100 ml IV Total 1437 ml Gastric Drainage Total 900 ml Drainage Total 750 ml Exam Constitutional: Patient was alert and oriented to time, place and person and appears to be in distress because of the abdominal pain Gen - no pallor, no icterus, no cyanosis, no clubbing, no LAD, no edema . Skin - Patients skin is warm and dry. HEENT - normocephalic, atraumatic, moist mucous membranes. Neck - full ROM, no LAD, no JVD Pulmonary - B/L equal breath sounds, no crackles, no wheezing cardiovascular - regular S1,S2 heard, no added sounds, no murmurs heard. GI - status post exploratory laparotomy with the abdominal binder, generalized tenderness to palpation, bowel sounds hypoactive Neurological - Bilateral upper extremity strength 5/5, bilateral lower extremity strength 4/5, no facial droop, normal speech, no tremor, no sensory deficiets. Medications Current Medications Medications Dose Ordered Sig/Nabeel Route Start Time Stop Time Status Last Admin Dose Admin Sodium Chloride 1,000 ml @ 100 mls/hr Q10H IV 07/19/24 08:15 Cancel Levothyroxine Sodium 50 mcg DAILY IV 07/19/24 10:00 07/24/24 09:48 50 MCG Metronidazole 100 ml @ 100 mls/hr Q8HR IV 07/19/24 14:00 07/24/24 13:57 100 MLS/HR Pantoprazole Sodium 40 mg DAILY IV 07/20/24 10:00 07/24/24 09:59 40 MG Ondansetron HCl 4 mg Q4HPRN PRN IV 07/20/24 00:45 07/24/24 06:20 4 MG Cefazolin Sodium/ Dextrose 50 ml @ 50 mls/hr Q8HR IV 07/20/24 15:00 07/24/24 13:57 50 MLS/HR Hydromorphone HCl 1 mg Q3HPRN PRN IV 07/20/24 14:15 Hold 07/24/24 17:03 1 MG Potassium Chloride/Dextrose/ Sod Cl 1,000 ml @ 100 mls/hr Q10H IV 07/22/24 11:15 07/24/24 13:15 100 MLS/HR Amino Acids 0 ml @ 0 mls/hr PER PHARMACY IV 07/22/24 18:45 Diagnostic Test (Pha) 1 strip Q6HR 07/23/24 00:00 07/24/24 17:09 1 STRIP Insulin Human Regular FOLLOW SLIDING SCALE Q6HR SC 07/23/24 00:00 07/24/24 18:07 2 UNITS Dextrose 50 ml UD IV 07/22/24 22:00 Fat Emulsion Intravenous 50 ml/ Sodium Chloride 40 meq/Sodium Phosphate 20 meq/ Potassium Chloride 60 meq/ Calcium Gluconate 2.3 meq/Magnesium Sulfate 6 meq/ Multivitamins 10 ml/Chromium/ Copper/Manganese/ Zinc 1 ml/Amino Acids/Dextrose 1,112.4462 ml @ 46 mls/hr [id number] IV 07/23/24 22:00 07/24/24 21:59 07/23/24 23:00 46 MLS/HR Sodium Chloride 10 ml QSHIFT@10,22 IV 07/23/24 22:00 07/24/24 09:48 10 ML Fat Emulsion Intravenous 100 ml/Sodium Chloride 20 meq/ Sodium Phosphate 40 meq/Potassium Chloride 60 meq/ Calcium Gluconate 2.3 meq/Magnesium Sulfate 10 meq/ Multivitamins 10 ml/Chromium/ Copper/Manganese/ Zinc 1 ml/Insulin Human Regular 5 units/Amino Acids/ Dextrose 1,363.4962 ml @ 57 mls/hr [id number] IV 07/24/24 22:00 07/25/24 21:59 Lorazepam 1 mg Q6HP IV 07/24/24 18:00 07/24/24 18:04 1 MG Ketorolac Tromethamine 15 mg Q4HP PRN IV 07/24/24 17:30 07/29/24 17:29 Laboratory Results Laboratory Tests 07/24/24 05:57 Chemistry Test 07/24/24 05:57 Albumin 2.9 g/dL (3.2-4.8) L Calcium Level 8.0 mg/dL (8.7-10.4) L Magnesium Level 1.9 mg/dL (1.6-2.6) Phosphorus Level 2.0 mg/dL (2.4-5.1) L Total Protein 4.9 g/dL (5.7-8.2) L Lipid panel Test 07/24/24 05:57 Triglycerides Level 108 mg/dL (< 150) LFT Test 07/24/24 05:57 Alanine Aminotransferase (ALT) < 9 U/L (7-40) Alkaline Phosphatase 54 U/L (46-116) Aspartate Amino Transferase (AST) 8 U/L (13-40) L Total Bilirubin 0.3 mg/dL (0.2-1.0) Microbiology Microbiology Date/Time Source Procedure Growth Status 4/14/25 15:45 Nose MRSA Screen - Final Complete Labs and/or images reviewed: Labs reviewed by me, Image(s) reviewed by me Assessment/Plan Assessment/Plan 07/24-patient in Med surge now, still has NG tube, not passing any bowel movements or gas. Surgery following wants to stop all opiates and continue watching. Patient in uncontrolled pain we will start p.r.n. IV Toradol 15 q.4 H and scheduled Ativan 1 mg q.6 as off-label for pain. 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 Code status: Full code time spent : 33 minutes Plan discussed with: Patient My Orders Orders - YAMILET REYES MD Procedure Category Date Status Time Lorazepam 2mg/Ml Inj PHA 07/24/24 In Process (Ativan Inj) 18:00 Ketorolac Injection PHA 07/24/24 In Process (Toradol Injection) 17:30 [facility] 07/24/24 In Process Clarification: 17:27 Date of Service: Jul 24, 2024 Billing Provider: YAMILET REYES MD Common Visit Codes: [id number] INP/OBS CARE(HIGH) YAMILET REYES MD Jul 24, 2024 19:02
[2024-07-24 21:00] VITALS: BP 100/60; PULSE 95; RESP 18; TEMP 97.2; O2SAT 90
[2024-07-24] MEDS: KETOROLAC TROMETH 30 MG/ML 1ML VIAL IV PRN (22:37)
[2024-07-24] MEDS: TPN PER PHARMACY IV NR (23:06)
[2024-07-25] VITALS (9 sets, daily range): BP systolic 97–122; BP diastolic 63–74; PULSE 83–117; RESP 16–20; TEMP 97.1–98.8; O2SAT 91–96
[2024-07-25 09:09] LABS: Alkaline Phosphatase 102 U/L (46-116); Anion Gap 6 (5-15); Aspartate Aminotransferase 23 U/L (13-40); BUN/Creatinine Ratio 17.4 (10.0-20.0); Carbon Dioxide 28 mmol/L (20-31); Chloride 103 mmol/L (98-107); Magnesium 1.8 mg/dL (1.6-2.6); Potassium 3.5 mmol/L (3.5-5.1); Sodium 137 mmol/L (136-145)
[2024-07-25 09:10] LABS: Bilirubin, Total 0.3 mg/dL (0.2-1.0)
[2024-07-25 09:14] LABS: Alanine Aminotransferase < 9 U/L (7-40); Albumin 2.9 g/dL (3.2-4.8); Blood Urea Nitrogen 8 mg/dL (9-23); Calcium 8.2 mg/dL (8.7-10.4); Glucose 132 mg/dL (74-106); Total Protein 4.9 g/dL (5.7-8.2)
--- NOTE | 2024-07-25 10:14 | DVHPN2 ---
Progress Note Date Seen: Jul 25, 2024 Medical Necessity Reason Pt with a Central, PICC or Fol: Yes The following are medically ne: Elder Catheter Objective vital signs Vital Sign Date Time Temp Pulse Resp B/P (MAP) Pulse Ox O2 Delivery O2 Flow Rate FiO2 07/25/24 08:44 98.1 91 20 102/64 (77) 94 98.1 07/25/24 08:00 Room Air* 0 21 Total Intake and Output 07/24/24 07/24/24 07/25/24 15:00 23:00 07:00 Intake Total 250 ml 150 ml Output Total 300 ml 200 ml Balance -50 ml -50 ml medications Current Medications Medications Dose Ordered Sig/Nabeel Route Start Time Stop Time Status Last Admin Dose Admin Sodium Chloride 1,000 ml @ 100 mls/hr Q10H IV 07/19/24 08:15 Cancel Levothyroxine Sodium 50 mcg DAILY IV 07/19/24 10:00 07/25/24 09:14 50 MCG Metronidazole 100 ml @ 100 mls/hr Q8HR IV 07/19/24 14:00 07/25/24 06:24 100 MLS/HR Pantoprazole Sodium 40 mg DAILY IV 07/20/24 10:00 07/25/24 09:14 40 MG Ondansetron HCl 4 mg Q4HPRN PRN IV 07/20/24 00:45 07/25/24 05:55 4 MG Cefazolin Sodium/ Dextrose 50 ml @ 50 mls/hr Q8HR IV 07/20/24 15:00 07/25/24 05:31 50 MLS/HR Hydromorphone HCl 1 mg Q3HPRN PRN IV 07/20/24 14:15 Hold 07/24/24 17:03 1 MG Potassium Chloride/Dextrose/ Sod Cl 1,000 ml @ 100 mls/hr Q10H IV 07/22/24 11:15 07/24/24 23:01 100 MLS/HR Amino Acids 0 ml @ 0 mls/hr PER PHARMACY IV 07/22/24 18:45 Diagnostic Test (Pha) 1 strip Q6HR 07/23/24 00:00 07/25/24 06:03 1 STRIP Insulin Human Regular FOLLOW SLIDING SCALE Q6HR SC 07/23/24 00:00 07/25/24 06:18 2 UNITS Dextrose 50 ml UD IV 07/22/24 22:00 Sodium Chloride 10 ml QSHIFT@10,22 IV 07/23/24 22:00 07/25/24 09:13 10 ML Fat Emulsion Intravenous 100 ml/Sodium Chloride 20 meq/ Sodium Phosphate 40 meq/Potassium Chloride 60 meq/ Calcium Gluconate 2.3 meq/Magnesium Sulfate 10 meq/ Multivitamins 10 ml/Chromium/ Copper/Manganese/ Zinc 1 ml/Insulin Human Regular 5 units/Amino Acids/ Dextrose 1,363.4962 ml @ 57 mls/hr [id number] IV 07/24/24 22:00 07/25/24 21:59 07/24/24 23:06 57 MLS/HR Lorazepam 1 mg Q6HP IV 07/24/24 18:00 07/25/24 06:12 1 MG Ketorolac Tromethamine 15 mg Q4HP PRN IV 07/24/24 17:30 07/29/24 17:29 07/25/24 05:55 15 MG laboratory and microbiology Laboratory Tests 07/25/24 08:30 07/24/24 05:57 Test 07/25/24 08:30 Range/Units Serum Glucose 132 H 74-106 mg/dL Problem List/Assessment/Plan Problem List/Assessment/Plan 07/20/24 patient awake and oriented, fully informed of operative findings and need for adjuvant tretments. abdomen appropriately tender, she is cleared to "down grade"from ICU. keep ngtr in place till pt passes flatus!~ 07/22/24 NO FLATUS, NO BM, WOUND CL;YOLI AND WELL APPROXIMATED, ABDOMEN SLIGHTLY DISTENDED, APPROPRIATELY TENDER, WBC IMPROVED, AFEBRILE, IF NO BOWEL ACTIVITY WITH NEXT 48 HOURS WILL GET GASTROGRAFIN BOWEL SERIES 07/23/25 STILL NO FLATUS OR BM, WOUNDS OKM ABDOMEN TENDER, WILL GET GASTROGRAFIN SMALL BOWEL SERIES 07/25/24 PT THINKS SHE MAY HAVE PASSED FLATUS, ABDOMEN NON DISTENDED, MUCH LESS TENDER, WOUND CLEAN AND WELL APPROXIMATED,XRAY SHOWS CONTRAST IN THE COLON.WILL ALLOW PO LIQUIDS WITH ngt IN PLACE (TO GRAVITY OR CLAMPED. Plan discussed with: Patient, Spouse Dietary Evaluation Review Comments: TPN per pharmacy to meet 75% of her needs. until GI heals and able to accept TF or PO feeding Expected Outcomes/Goals: maintain wt. MACY ROCHE MD Jul 25, 2024 10:14
--- NOTE | 2024-07-25 17:44 | DVHPN2 ---
Subjective Update 07/25 07/24-patient in Med surge now, still has NG tube, not passing any bowel movements or gas. Surgery following wants to stop all opiates and continue watching. Patient in uncontrolled pain we will start p.r.n. IV Toradol 15 q.4 H and scheduled Ativan 1 mg q.6 as off-label for pain. Otherwise continue primary team's management and appreciate surgical recs 07/25 patient is still in pain, surgery following today and recommends trial of clear liquid diet. Patient has large bowel movement today. We will try clear liquid diet if patient passes we will remove NG tube. Patient wants quiet at night door closed. Continue Toradol for pain control and continue scheduled Ativan for anxiety. We will add trazodone at night to facilitate sleep. Appreciate surgical recs. Reviewed: H&P Changes from previous H/P or p: No Changes General: Per HPI Eyes: No Pain, No Vision change, No Conjunctivae inflammation, No Eyelid inflammation, No Other, No Redness ENT: No Ear pain, No Ear discharge, No Nose pain, No Nose discharge, No Nose congestion, No Mouth pain, No Mouth swelling, No Throat pain, No Throat swelling, No Other Cardiovascular: No Chest Pain, No Palpitations, No Orthopnea, No Paroxysmal Noc. Dyspnea, No Edema, No Lt Headedness, No Other Respiratory: No Cough, No Dry, No Shortness of breath, No SOB with excertion, No Wheezing, No Hemoptysis, No Pleuritic Pain, No Sputum, No Other Gastrointestinal: No Nausea, No Vomiting; Abdominal Pain, Diarrhea; No Constipation, No Melena, No Hematochezia, No Other Genitourinary: No Dysuria, No Frequency, No Incontinence, No Hematuria, No Retention, No Other Musculoskeletal: No other, No neck pain, No shoulder pain, No arm pain, No back pain, No hand pain, No leg pain, No foot pain Skin: No Rash, No Lesions, No Jaundice, No Bruising, No Other Objective Vitals Vital Signs Date Time Temp Pulse Resp B/P (MAP) Pulse Ox O2 Delivery O2 Flow Rate FiO2 07/25/24 16:50 98.8 86 18 112/65 (81) 92 98.8 07/25/24 08:00 Room Air* 0 21 Intake/Output Intake and Output 07/25/24 07:00 Intake Total 400 ml Output Total 500 ml Balance -100 ml Intake Oral 250 ml IV Total 150 ml Output Urine Total 300 ml Drainage Total 200 ml Exam Constitutional: Patient was alert and oriented to time, place and person and appears to be in distress because of the abdominal pain Gen - no pallor, no icterus, no cyanosis, no clubbing, no LAD, no edema . Skin - Patients skin is warm and dry. HEENT - normocephalic, atraumatic, moist mucous membranes. Neck - full ROM, no LAD, no JVD Pulmonary - B/L equal breath sounds, no crackles, no wheezing cardiovascular - regular S1,S2 heard, no added sounds, no murmurs heard. GI - status post exploratory laparotomy with the abdominal binder, generalized tenderness to palpation, bowel sounds hypoactive Neurological - Bilateral upper extremity strength 5/5, bilateral lower extremity strength 4/5, no facial droop, normal speech, no tremor, no sensory deficiets. Medications Current Medications Medications Dose Ordered Sig/Nabeel Route Start Time Stop Time Status Last Admin Dose Admin Sodium Chloride 1,000 ml @ 100 mls/hr Q10H IV 07/19/24 08:15 Cancel Levothyroxine Sodium 50 mcg DAILY IV 07/19/24 10:00 07/25/24 09:14 50 MCG Metronidazole 100 ml @ 100 mls/hr Q8HR IV 07/19/24 14:00 07/25/24 13:26 100 MLS/HR Pantoprazole Sodium 40 mg DAILY IV 07/20/24 10:00 07/25/24 09:14 40 MG Ondansetron HCl 4 mg Q4HPRN PRN IV 07/20/24 00:45 07/25/24 16:00 4 MG Cefazolin Sodium/ Dextrose 50 ml @ 50 mls/hr Q8HR IV 07/20/24 15:00 07/25/24 13:26 50 MLS/HR Hydromorphone HCl 1 mg Q3HPRN PRN IV 07/20/24 14:15 Hold 07/24/24 17:03 1 MG Potassium Chloride/Dextrose/ Sod Cl 1,000 ml @ 100 mls/hr Q10H IV 07/22/24 11:15 07/24/24 23:01 100 MLS/HR Amino Acids 0 ml @ 0 mls/hr PER PHARMACY IV 07/22/24 18:45 Diagnostic Test (Pha) 1 strip Q6HR 07/23/24 00:00 07/25/24 11:14 1 STRIP Insulin Human Regular FOLLOW SLIDING SCALE Q6HR SC 07/23/24 00:00 07/25/24 11:32 2 UNITS Dextrose 50 ml UD IV 07/22/24 22:00 Sodium Chloride 10 ml QSHIFT@10,22 IV 07/23/24 22:00 07/25/24 09:13 10 ML Fat Emulsion Intravenous 100 ml/Sodium Chloride 20 meq/ Sodium Phosphate 40 meq/Potassium Chloride 60 meq/ Calcium Gluconate 2.3 meq/Magnesium Sulfate 10 meq/ Multivitamins 10 ml/Chromium/ Copper/Manganese/ Zinc 1 ml/Insulin Human Regular 5 units/Amino Acids/ Dextrose 1,363.4962 ml @ 57 mls/hr [id number] IV 07/24/24 22:00 07/25/24 21:59 07/24/24 23:06 57 MLS/HR Lorazepam 1 mg Q6HP IV 07/24/24 18:00 07/25/24 11:26 1 MG Ketorolac Tromethamine 15 mg Q4HP PRN IV 07/24/24 17:30 07/29/24 17:29 07/25/24 15:54 15 MG Fat Emulsion Intravenous 150 ml/Sodium Chloride 20 meq/ Sodium Phosphate 40 meq/Potassium Chloride 80 meq/ Calcium Gluconate 1.15 meq/ Magnesium Sulfate 16 meq/ Multivitamins 10 ml/Chromium/ Copper/Manganese/ Zinc 1 ml/Insulin Human Regular 5 units/Amino Acids/ Dextrose 1,522.5231 ml @ 63 mls/hr [id number] IV 07/25/24 22:00 07/26/24 21:59 Laboratory Results Laboratory Tests 07/24/24 05:57 07/25/24 08:30 Chemistry Test 07/25/24 08:30 Albumin 2.9 g/dL (3.2-4.8) L Calcium Level 8.2 mg/dL (8.7-10.4) L Magnesium Level 1.8 mg/dL (1.6-2.6) Phosphorus Level 3.0 mg/dL (2.4-5.1) Total Protein 4.9 g/dL (5.7-8.2) L LFT Test 07/25/24 08:30 Alanine Aminotransferase (ALT) < 9 U/L (7-40) Alkaline Phosphatase 102 U/L (46-116) Aspartate Amino Transferase (AST) 23 U/L (13-40) Total Bilirubin 0.3 mg/dL (0.2-1.0) Microbiology Microbiology Date/Time Source Procedure Growth Status 07/19/24 15:45 Nose MRSA Screen - Final Complete Labs and/or images reviewed: Labs reviewed by me, Image(s) reviewed by me Assessment/Plan Assessment/Plan 07/25 patient is still in pain, surgery following today and recommends trial of clear liquid diet. Patient has large bowel movement today. We will try clear liquid diet if patient passes we will remove NG tube. Patient wants quiet at night door closed. Continue Toradol for pain control and continue scheduled Ativan for anxiety. We will add trazodone at night to facilitate sleep. Appreciate surgical recs. 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 Code status: Full code time spent : 33 minutes Plan discussed with: Patient My Orders Orders - YAMILET REYES MD Procedure Category Date Status Time Clear Liq Diet DIET 07/25/24 Transmitted Dinner Date of Service: Jul 25, 2024 Billing Provider: YAMILET REYES MD Common Visit Codes: [id number] INP/OBS CARE(HIGH) YAMILET REYES MD Jul 25, 2024 17:44
[2024-07-25] MEDS: traZODone HCL 50 MG TAB PO SCH (21:50)
[2024-07-25] MEDS: TPN PER PHARMACY IV NR (22:01)
[2024-07-26] VITALS (8 sets, daily range): BP systolic 90–115; BP diastolic 63–76; PULSE 66–92; RESP 16–20; TEMP 97.8–99.5; O2SAT 81–99
[2024-07-26 07:53] LABS: Basophils # (auto) 0 10 ^3/uL (0-0.2); Basophils % (auto) 0.5 % (0.0-2.0); Eosinophils # (auto) 0.4 10 ^3/uL (0-0.8); Eosinophils % (auto) 3.9 % (0.0-7.0); Hematocrit 28.7 % (36.0-46.0); Hemoglobin 10.5 g/dL (12.2-16.2); Lymphocytes # (auto) 0.7 10 ^3/uL (0.4-5.4); Lymphocytes % (auto) 7.4 % (10.0-50.0); Mean Corpuscular Hemoglobin 31.5 pg (28.0-32.0); Mean Corpuscular Volume 86.4 fL (80.0-100.0); Monocytes # (auto) 0.9 10 ^3/uL (0-1.3); Monocytes % (auto) 9.7 % (0.0-12.0); Neutrophils # (auto) 7.2 10 ^3/uL (1.6-8.6); Neutrophils % (auto) 78.5 % (37.0-80.0); Platelet Count (auto) 349 10^3/uL (140-450); Red Blood Cells 3.32 10^6/uL (4.0-5.20); Red Cell Distribution Width 15.9 % (11.8-14.3); White Blood Cell 9.2 10^3/uL (4.4-10.8)
[2024-07-26 08:03] LABS: Mean Corpuscular Hgb Conc. 36.5 g/dL (32.0-36.0)
[2024-07-26 08:07] LABS: Alanine Aminotransferase 10 U/L (7-40); Anion Gap 6 (5-15); BUN/Creatinine Ratio 14.6 (10.0-20.0); Carbon Dioxide 26 mmol/L (20-31); Chloride 106 mmol/L (98-107); Magnesium 1.9 mg/dL (1.6-2.6); Potassium 3.9 mmol/L (3.5-5.1); Sodium 138 mmol/L (136-145)
[2024-07-26 08:08] LABS: Albumin 2.7 g/dL (3.2-4.8); Alkaline Phosphatase 133 U/L (46-116); Aspartate Aminotransferase 32 U/L (13-40); Blood Urea Nitrogen 7 mg/dL (9-23); Calcium 8.1 mg/dL (8.7-10.4); Glucose 157 mg/dL (74-106); Phosphorus 3.6 mg/dL (2.4-5.1); Total Protein 4.8 g/dL (5.7-8.2)
[2024-07-26 08:09] LABS: Bilirubin, Total 0.3 mg/dL (0.2-1.0)
--- NOTE | 2024-07-26 12:00 | DVHPN2 ---
Progress Note Date Seen: Jul 26, 2024 Medical Necessity Reason Pt with a Central, PICC or Fol: Yes The following are medically ne: Elder Catheter Objective vital signs Vital Sign Date Time Temp Pulse Resp B/P (MAP) Pulse Ox O2 Delivery O2 Flow Rate FiO2 07/26/24 09:00 99.5 92 17 108/64 (79) 81 99.5 07/26/24 08:00 Room Air* 0 21 Total Intake and Output 07/25/24 07/25/24 07/26/24 15:00 23:00 07:00 Intake Total 1300 ml 1930 ml Output Total 1750 ml Balance 1300 ml 180 ml medications Current Medications Medications Dose Ordered Sig/Nabeel Route Start Time Stop Time Status Last Admin Dose Admin Sodium Chloride 1,000 ml @ 100 mls/hr Q10H IV 07/19/24 08:15 Cancel Levothyroxine Sodium 50 mcg DAILY IV 07/19/24 10:00 07/26/24 08:42 50 MCG Metronidazole 100 ml @ 100 mls/hr Q8HR IV 07/19/24 14:00 07/26/24 05:47 100 MLS/HR Pantoprazole Sodium 40 mg DAILY IV 07/20/24 10:00 07/26/24 10:22 40 MG Ondansetron HCl 4 mg Q4HPRN PRN IV 07/20/24 00:45 07/25/24 16:00 4 MG Cefazolin Sodium/ Dextrose 50 ml @ 50 mls/hr Q8HR IV 07/20/24 15:00 07/26/24 05:47 50 MLS/HR Hydromorphone HCl 1 mg Q3HPRN PRN IV 07/20/24 14:15 Hold 07/24/24 17:03 1 MG Potassium Chloride/Dextrose/ Sod Cl 1,000 ml @ 100 mls/hr Q10H IV 07/22/24 11:15 07/25/24 23:25 100 MLS/HR Amino Acids 0 ml @ 0 mls/hr PER PHARMACY IV 07/22/24 18:45 Diagnostic Test (Pha) 1 strip Q6HR 07/23/24 00:00 07/26/24 06:17 1 STRIP Insulin Human Regular FOLLOW SLIDING SCALE Q6HR SC 07/23/24 00:00 07/26/24 07:14 4 UNITS Dextrose 50 ml UD IV 07/22/24 22:00 Sodium Chloride 10 ml QSHIFT@10,22 IV 07/23/24 22:00 07/26/24 08:42 10 ML Lorazepam 1 mg Q6HP IV 07/24/24 18:00 07/26/24 05:46 1 MG Ketorolac Tromethamine 15 mg Q4HP PRN IV 07/24/24 17:30 07/29/24 17:29 07/26/24 10:22 15 MG Fat Emulsion Intravenous 150 ml/Sodium Chloride 20 meq/ Sodium Phosphate 40 meq/Potassium Chloride 80 meq/ Calcium Gluconate 1.15 meq/ Magnesium Sulfate 16 meq/ Multivitamins 10 ml/Chromium/ Copper/Manganese/ Zinc 1 ml/Insulin Human Regular 5 units/Amino Acids/ Dextrose 1,522.5231 ml @ 63 mls/hr [id number] IV 07/25/24 22:00 07/26/24 21:59 07/25/24 22:01 63 MLS/HR Trazodone HCl 50 mg HS PO 07/25/24 22:00 07/25/24 21:50 50 MG Enoxaparin Sodium 40 mg DAILY SC 07/26/24 10:00 UNV laboratory and microbiology Laboratory Tests 07/26/24 07:05 Test 07/26/24 07:05 Range/Units Serum Glucose 157 H 74-106 mg/dL Problem List/Assessment/Plan Problem List/Assessment/Plan 07/20/24 patient awake and oriented, fully informed of operative findings and need for adjuvant tretments. abdomen appropriately tender, she is cleared to "down grade"from ICU. keep ngtr in place till pt passes flatus!~ 07/22/24 NO FLATUS, NO BM, WOUND CL;YOLI AND WELL APPROXIMATED, ABDOMEN SLIGHTLY DISTENDED, APPROPRIATELY TENDER, WBC IMPROVED, AFEBRILE, IF NO BOWEL ACTIVITY WITH NEXT 48 HOURS WILL GET GASTROGRAFIN BOWEL SERIES 07/23/25 STILL NO FLATUS OR BM, WOUNDS OKM ABDOMEN TENDER, WILL GET GASTROGRAFIN SMALL BOWEL SERIES 07/25/24 PT THINKS SHE MAY HAVE PASSED FLATUS, ABDOMEN NON DISTENDED, MUCH LESS TENDER, WOUND CLEAN AND WELL APPROXIMATED,XRAY SHOWS CONTRAST IN THE COLON.WILL ALLOW PO LIQUIDS WITH ngt IN PLACE (TO GRAVITY OR CLAMPED. 07/26/24 ABDOMEN STILL VERY TENDER, SHE HAD A BOWEL MOVEMENT AND IS PASSING FLATUS, WOUND CLEAN AND WELL APPROXIMATED, MERVIN DRAINAGE SEROUS. WILL ADVANCE DIET, WILL REQUEST ONCOLOGY CONSULT,SOCIAL SERVICE CONSULT FOR IHSS Plan discussed with: Patient Dietary Evaluation Review Comments: TPN per pharmacy to meet 75% of her needs. until GI heals and able to accept TF or PO feeding Expected Outcomes/Goals: maintain wt. MACY ROCHE MD Jul 26, 2024 12:00
[2024-07-26] MEDS: ENOXAPARIN SOD 40 MG/0.4 ML SYRINGE SC SCH (13:43)
--- NOTE | 2024-07-26 20:27 | DVHPNRES ---
Progress Note Date Seen: Jul 26, 2024 Resident Creating Document: PERRY MIRELES RESIDENT Medical Necessity Reason Pt with a Central, PICC or Fol: Yes The following are medically ne: Elder Catheter Subjective Review of Systems Patient is a 59-year-old female with a past medical history of hypothyroidism, gallstones, hyperlipidemia, psoriatic arthritis presented to the ED with a chief complaint of sudden onset abdominal pain for few hours prior to admission. Patient reports that she was awoke can up by the severe pain around 1:00 a.m. on Friday morning and she had nausea but no vomiting. She reports that she has been having abdominal problems since summer last year, came to the hospital in December 2023 where she was diagnosed with gallstones and biliary colic and was sent home from the ER. She continued to have on and off diarrhea with watery and loose stools, exacerbated by certain foods like leafy vegetables associated with the abdominal pain. Patient denied blood in stools, fever, chills but had episodes of nausea but no vomiting. Past medical history: As per HPI Past Surgical history: Hernia repair, right ankle surgery Social history: Lives with family and denies smoking, alcohol, drug use Home medications: Levothyroxine 100 mcg, methotrexate 2.5 mg, adalimumab, rosuvastatin Review of systems Patient was seen and examined with the bedside Status post exploratory laparotomy with the enteroenterostomy 4 bowel movements tolerated clear liquid diet well walking with the physiotherapist Objective vital signs Vital Sign Date Time Temp Pulse Resp B/P (MAP) Pulse Ox O2 Delivery O2 Flow Rate FiO2 07/26/24 17:00 99.0 86 18 90/63 (72) 92 99.0 07/26/24 08:00 Room Air* 0 21 Total Intake and Output 07/25/24 07/25/24 07/26/24 15:00 23:00 07:00 Intake Total 1300 ml 1930 ml Output Total 1750 ml Balance 1300 ml 180 ml medications Current Medications Medications Dose Ordered Sig/Nabeel Route Start Time Stop Time Status Last Admin Dose Admin Sodium Chloride 1,000 ml @ 100 mls/hr Q10H IV 07/19/24 08:15 Cancel Levothyroxine Sodium 50 mcg DAILY IV 07/19/24 10:00 07/26/24 08:42 50 MCG Pantoprazole Sodium 40 mg DAILY IV 07/20/24 10:00 07/26/24 10:22 40 MG Ondansetron HCl 4 mg Q4HPRN PRN IV 07/20/24 00:45 07/25/24 16:00 4 MG Cefazolin Sodium/ Dextrose 50 ml @ 50 mls/hr Q8HR IV 07/20/24 15:00 07/26/24 13:43 50 MLS/HR Hydromorphone HCl 1 mg Q3HPRN PRN IV 07/20/24 14:15 Hold 07/24/24 17:03 1 MG Potassium Chloride/Dextrose/ Sod Cl 1,000 ml @ 100 mls/hr Q10H IV 07/22/24 11:15 07/25/24 23:25 100 MLS/HR Diagnostic Test (Pha) 1 strip Q6HR 07/23/24 00:00 07/26/24 17:58 1 STRIP Insulin Human Regular FOLLOW SLIDING SCALE Q6HR SC 07/23/24 00:00 07/26/24 12:29 2 UNITS Dextrose 50 ml UD IV 07/22/24 22:00 Sodium Chloride 10 ml QSHIFT@10,22 IV 07/23/24 22:00 07/26/24 08:42 10 ML Lorazepam 1 mg Q6HP IV 07/24/24 18:00 07/26/24 17:57 1 MG Ketorolac Tromethamine 15 mg Q4HP PRN IV 07/24/24 17:30 07/29/24 17:29 07/26/24 16:22 15 MG Trazodone HCl 50 mg HS PO 07/25/24 22:00 07/25/24 21:50 50 MG Enoxaparin Sodium 40 mg DAILY SC 07/26/24 10:00 07/26/24 13:43 40 MG Fat Emulsion Intravenous 150 ml/Sodium Acetate 40 meq/Potassium Chloride 40 meq/ Calcium Gluconate 1.15 meq/ Magnesium Sulfate 18 meq/ Multivitamins 10 ml/Chromium/ Copper/Manganese/ Zinc 1 ml/Amino Acids/Dextrose 1,507.9731 ml @ 63 mls/hr [id number] IV 07/26/24 22:00 07/27/24 21:59 Cancel Acetaminophen/ Hydrocodone Bitart 1 tab Q6HPRN PRN PO 07/26/24 15:30 Examination Constitutional: Patient was alert and oriented to time, place and person and appears to be in distress because of the abdominal pain Gen - no pallor, no icterus, no cyanosis, no clubbing, no LAD, no edema . Skin - Patients skin is warm and dry. HEENT - normocephalic, atraumatic, moist mucous membranes. Neck - full ROM, no LAD, no JVD Pulmonary - B/L equal breath sounds, no crackles, no wheezing cardiovascular - regular S1,S2 heard, no added sounds, no murmurs heard. GI - status post exploratory laparotomy with the abdominal binder, generalized tenderness to palpation, bowel sounds normoactive Neurological - Bilateral upper extremity strength 5/5, bilateral lower extremity strength 4/5, no facial droop, normal speech, no tremor, no sensory deficiets. laboratory and microbiology Laboratory Tests 07/26/24 07:05 Test 07/26/24 07:05 Range/Units Serum Glucose 157 H 74-106 mg/dL Microbiology Date/Time Source Procedure Growth Status 07/19/24 15:45 Nose MRSA Screen - Final Complete Problem List/Assessment/Plan Problem List/Assessment/Plan Cardiovascular/infectious Sepsis with underlying bowel perforation S/p exploratory laparotomy Lactic acidosis - on cefazolin - IV fluids with KCl/D5W/0.5 NS Gastrointestinal Acute intractable abdominal pain Omental Carcinomatosis Neuroendocrine tumor Small bowel perforation likely ischemic S/p exploratory laparotomy with tumor excision and enteroenterostomy - tolerated clear liquid diet well, advanced to full liquid diet - MERVIN drain with serosanginous discharge - hem/onc consulted Endocrinology H/O hypothyroidism - on levothyroxine 50 mcg daily IV PICC line PUD prophylaxis: protonix DVT prophylaxis: enoxaparin Goals of care discussed with the patient and her daughter for over 25 minutes. Code status: Full code time spent : 51 minutes Plan discussed with Dr. Blount Plan discussed with: Patient, Daughter, Other (RN) My Orders My Orders Orders - PERRY MIRELES RESIDENT Procedure Category Date Status Time Enoxaparin Sodium PHA 07/26/24 In Process (Lovenox) 10:00 Dietary Evaluation Review Comments: TPN per pharmacy to meet 75% of her needs. until GI heals and able to accept TF or PO feeding Expected Outcomes/Goals: maintain wt. Date of Service: Jul 26, 2024 Billing Provider: JULIO BLOUNT MD Common Visit Codes: [id number] INP/OBS CARE(HIGH) Secondary Visit Codes: [id number] CARE PLAN 30 MINUTES PERRY MIRELES RESIDENT Jul 26, 2024 20:27 JULIO BLOUNT MD Jul 27, 2024 15:24
[2024-07-26] MEDS ORDERED: TPN PER PHARMACY IV NR ×2 (22:00)
[2024-07-27] VITALS (8 sets, daily range): BP systolic 97–107; BP diastolic 56–65; PULSE 76–85; RESP 17–19; TEMP 97.9–98.9; O2SAT 92–95
[2024-07-27 07:18] LABS: Basophils # (auto) 0.1 10 ^3/uL (0-0.2); Basophils % (auto) 0.8 % (0.0-2.0); Eosinophils # (auto) 0.3 10 ^3/uL (0-0.8); Eosinophils % (auto) 3.8 % (0.0-7.0); Hematocrit 30.3 % (36.0-46.0); Hemoglobin 10.6 g/dL (12.2-16.2); Lymphocytes % (auto) 12.5 % (10.0-50.0); Mean Corpuscular Hemoglobin 30.8 pg (28.0-32.0); Mean Corpuscular Hgb Conc. 34.9 g/dL (32.0-36.0); Mean Corpuscular Volume 88.3 fL (80.0-100.0); Monocytes # (auto) 0.8 10 ^3/uL (0-1.3); Monocytes % (auto) 10.1 % (0.0-12.0); Neutrophils # (auto) 5.9 10 ^3/uL (1.6-8.6); Neutrophils % (auto) 72.8 % (37.0-80.0); Nucleated Red Blood Cells % 0.2 %; Platelet Count (auto) 399 10^3/uL (140-450); Red Blood Cells 3.43 10^6/uL (4.0-5.20); Red Cell Distribution Width 16.1 % (11.8-14.3); White Blood Cell 8.1 10^3/uL (4.4-10.8)
[2024-07-27 07:32] LABS: Anion Gap 7 (5-15); Carbon Dioxide 24 mmol/L (20-31); Chloride 106 mmol/L (98-107); Potassium 4.3 mmol/L (3.5-5.1); Sodium 137 mmol/L (136-145)
[2024-07-27 07:33] LABS: Magnesium 2.1 mg/dL (1.6-2.6)
[2024-07-27 07:34] LABS: Alanine Aminotransferase < 9 U/L (7-40); Albumin 2.9 g/dL (3.2-4.8); Alkaline Phosphatase 151 U/L (46-116); Aspartate Aminotransferase 21 U/L (13-40); BUN/Creatinine Ratio 10.6 (10.0-20.0); Bilirubin, Total 0.4 mg/dL (0.2-1.0); Blood Urea Nitrogen < 5 mg/dL (9-23); Calcium 8.3 mg/dL (8.7-10.4); Glucose 115 mg/dL (74-106); Phosphorus 4.1 mg/dL (2.4-5.1); Total Protein 5.2 g/dL (5.7-8.2)
[2024-07-27] MEDS: HYDROcodone-ACET 5/325MG TAB PO PRN ×2 (09:14→14:08)
[2024-07-27] MEDS: GASTROGRAFIN 120 ML SOL ONE (10:56)
--- NOTE | 2024-07-27 12:19 | DVHPN2 ---
Progress Note Date Seen: Jul 27, 2024 Medical Necessity Reason Pt with a Central, PICC or Fol: Yes The following are medically ne: Elder Catheter Objective vital signs Vital Sign Date Time Temp Pulse Resp B/P (MAP) Pulse Ox O2 Delivery O2 Flow Rate FiO2 07/27/24 09:00 98.9 79 17 103/65 (78) 93 98.9 07/26/24 20:00 Room Air* 0 21 Total Intake and Output 07/26/24 07/26/24 07/27/24 15:00 23:00 07:00 Intake Total 150 ml 1400 ml 650 ml Output Total 930 ml 110 ml 1480 ml Balance -780 ml 1290 ml -830 ml medications Current Medications Medications Dose Ordered Sig/Nabeel Route Start Time Stop Time Status Last Admin Dose Admin Sodium Chloride 1,000 ml @ 100 mls/hr Q10H IV 07/19/24 08:15 Cancel Levothyroxine Sodium 50 mcg DAILY IV 07/19/24 10:00 07/26/24 08:42 50 MCG Pantoprazole Sodium 40 mg DAILY IV 07/20/24 10:00 07/27/24 09:15 40 MG Ondansetron HCl 4 mg Q4HPRN PRN IV 07/20/24 00:45 07/25/24 16:00 4 MG Cefazolin Sodium/ Dextrose 50 ml @ 50 mls/hr Q8HR IV 07/20/24 15:00 07/27/24 06:02 50 MLS/HR Hydromorphone HCl 1 mg Q3HPRN PRN IV 07/20/24 14:15 Hold 07/24/24 17:03 1 MG Potassium Chloride/Dextrose/ Sod Cl 1,000 ml @ 100 mls/hr Q10H IV 07/22/24 11:15 07/27/24 00:16 100 MLS/HR Diagnostic Test (Pha) 1 strip Q6HR 07/23/24 00:00 07/27/24 00:17 1 STRIP Insulin Human Regular FOLLOW SLIDING SCALE Q6HR SC 07/23/24 00:00 07/26/24 12:29 2 UNITS Dextrose 50 ml UD IV 07/22/24 22:00 Sodium Chloride 10 ml QSHIFT@ IV 07/23/24 22:00 07/27/24 10:00 10 ML Lorazepam 1 mg Q6HP IV 07/24/24 18:00 07/27/24 06:02 1 MG Ketorolac Tromethamine 15 mg Q4HP PRN IV 07/24/24 17:30 07/29/24 17:29 07/27/24 04:37 15 MG Trazodone HCl 50 mg HS PO 07/25/24 22:00 07/26/24 21:25 50 MG Enoxaparin Sodium 40 mg DAILY SC 07/26/24 10:00 07/27/24 09:15 40 MG Fat Emulsion Intravenous 150 ml/Sodium Acetate 40 meq/Potassium Chloride 40 meq/ Calcium Gluconate 1.15 meq/ Magnesium Sulfate 18 meq/ Multivitamins 10 ml/Chromium/ Copper/Manganese/ Zinc 1 ml/Amino Acids/Dextrose 1,507.9731 ml @ 63 mls/hr [id number] IV 07/26/24 22:00 07/27/24 21:59 Cancel Acetaminophen/ Hydrocodone Bitart 1 tab Q6HPRN PRN PO 07/26/24 15:30 07/27/24 09:14 1 TAB laboratory and microbiology Laboratory Tests 07/27/24 06:30 Test 07/27/24 06:30 Range/Units Serum Glucose 115 H 74-106 mg/dL Problem List/Assessment/Plan Problem List/Assessment/Plan 07/20/24 patient awake and oriented, fully informed of operative findings and need for adjuvant tretments. abdomen appropriately tender, she is cleared to "down grade"from ICU. keep ngtr in place till pt passes flatus!~ 07/22/24 NO FLATUS, NO BM, WOUND CL;YOLI AND WELL APPROXIMATED, ABDOMEN SLIGHTLY DISTENDED, APPROPRIATELY TENDER, WBC IMPROVED, AFEBRILE, IF NO BOWEL ACTIVITY WITH NEXT 48 HOURS WILL GET GASTROGRAFIN BOWEL SERIES 07/23/25 STILL NO FLATUS OR BM, WOUNDS OKM ABDOMEN TENDER, WILL GET GASTROGRAFIN SMALL BOWEL SERIES 07/25/24 PT THINKS SHE MAY HAVE PASSED FLATUS, ABDOMEN NON DISTENDED, MUCH LESS TENDER, WOUND CLEAN AND WELL APPROXIMATED,XRAY SHOWS CONTRAST IN THE COLON.WILL ALLOW PO LIQUIDS WITH ngt IN PLACE (TO GRAVITY OR CLAMPED. 07/26/24 ABDOMEN STILL VERY TENDER, SHE HAD A BOWEL MOVEMENT AND IS PASSING FLATUS, WOUND CLEAN AND WELL APPROXIMATED, MEVRIN DRAINAGE SEROUS. WILL ADVANCE DIET, WILL REQUEST ONCOLOGY CONSULT,SOCIAL SERVICE CONSULT FOR IHSS1 4. MERVIN DRAINAGE SEROUS, ABDOMEN LESSS TENDER, WOUND CLEAN WELL APPROXIMATED, AWAITINH ONCOLOGY CONSULT, SHOULD BE ABLE TO DISCHARGE TOMORROW OR DAY AFTER Plan discussed with: Patient Dietary Evaluation Review Comments: TPN per pharmacy to meet 75% of her needs. until GI heals and able to accept TF or PO feeding Expected Outcomes/Goals: maintain wt. MACY ROCHE MD Jul 27, 2024 12:19
[2024-07-27] MEDS: Ensure Enlive Strawberry 8oz Bottle PO SCH (17:51)
--- NOTE | 2024-07-27 19:36 | DVHPNRES ---
Progress Note Date Seen: Jul 27, 2024 Resident Creating Document: PERRY MIRELES RESIDENT Medical Necessity Reason Pt with a Central, PICC or Fol: No Subjective Review of Systems Patient is a 59-year-old female with a past medical history of hypothyroidism, gallstones, hyperlipidemia, psoriatic arthritis presented to the ED with a chief complaint of sudden onset abdominal pain for few hours prior to admission. Patient reports that she was awoke can up by the severe pain around 1:00 a.m. on Friday morning and she had nausea but no vomiting. She reports that she has been having abdominal problems since summer last year, came to the hospital in December 2023 where she was diagnosed with gallstones and biliary colic and was sent home from the ER. She continued to have on and off diarrhea with watery and loose stools, exacerbated by certain foods like leafy vegetables associated with the abdominal pain. Patient denied blood in stools, fever, chills but had episodes of nausea but no vomiting. Past medical history: As per HPI Past Surgical history: Hernia repair, right ankle surgery Social history: Lives with family and denies smoking, alcohol, drug use Home medications: Levothyroxine 100 mcg, methotrexate 2.5 mg, adalimumab, rosuvastatin Review of systems Patient was seen and examined with the bedside Status post exploratory laparotomy with the enteroenterostomy abd pain has improved and the patient is ambulating, denies any other acute complaints 2 bowel movements overnight tolerated full liquid diet, advanced to soft diet Elder cath taken out MERVIN drain- serous discharge Objective vital signs Vital Sign Date Time Temp Pulse Resp B/P (MAP) Pulse Ox O2 Delivery O2 Flow Rate FiO2 07/27/24 17:00 98.3 83 18 104/65 (78) 93 98.3 07/27/24 08:00 Room Air* 0 21 Total Intake and Output 07/26/24 07/26/24 07/27/24 15:00 23:00 07:00 Intake Total 150 ml 1400 ml 650 ml Output Total 930 ml 110 ml 1480 ml Balance -780 ml 1290 ml -830 ml medications Current Medications Medications Dose Ordered Sig/Nabeel Route Start Time Stop Time Status Last Admin Dose Admin Sodium Chloride 1,000 ml @ 100 mls/hr Q10H IV 07/19/24 08:15 Cancel Ondansetron HCl 4 mg Q4HPRN PRN IV 07/20/24 00:45 07/25/24 16:00 4 MG Cefazolin Sodium/ Dextrose 50 ml @ 50 mls/hr Q8HR IV 07/20/24 15:00 07/28/24 06:00 07/27/24 16:01 50 MLS/HR Hydromorphone HCl 1 mg Q3HPRN PRN IV 07/20/24 14:15 Hold 07/24/24 17:03 1 MG Sodium Chloride 10 ml QSHIFT@ IV 07/23/24 22:00 07/27/24 10:00 10 ML Ketorolac Tromethamine 15 mg Q4HP PRN IV 07/24/24 17:30 07/29/24 17:29 07/27/24 16:01 15 MG Trazodone HCl 50 mg HS PO 07/25/24 22:00 07/26/24 21:25 50 MG Enoxaparin Sodium 40 mg DAILY SC 07/26/24 10:00 07/27/24 09:15 40 MG Fat Emulsion Intravenous 150 ml/Sodium Acetate 40 meq/Potassium Chloride 40 meq/ Calcium Gluconate 1.15 meq/ Magnesium Sulfate 18 meq/ Multivitamins 10 ml/Chromium/ Copper/Manganese/ Zinc 1 ml/Amino Acids/Dextrose 1,507.9731 ml @ 63 mls/hr [id number] IV 07/26/24 22:00 07/27/24 21:59 Cancel Acetaminophen/ Hydrocodone Bitart 1 tab Q4HPRN PRN PO 07/27/24 13:00 07/27/24 18:18 1 TAB Enteral Nutritional Formula 240 ml BIDWM PO 07/27/24 18:00 07/27/24 17:51 240 ML Pantoprazole Sodium 40 mg DAILY@0600 PO 07/28/24 06:00 Levothyroxine Sodium 100 mcg QAM@0600 PO 07/28/24 06:00 Examination Constitutional: Patient was alert and oriented to time, place and person and appears to be in distress because of the abdominal pain Gen - no pallor, no icterus, no cyanosis, no clubbing, no LAD, no edema . Skin - Patients skin is warm and dry. HEENT - normocephalic, atraumatic, moist mucous membranes. Neck - full ROM, no LAD, no JVD Pulmonary - B/L equal breath sounds, no crackles, no wheezing cardiovascular - regular S1,S2 heard, no added sounds, no murmurs heard. GI - status post exploratory laparotomy with the abdominal binder, generalized tenderness to palpation is better, bowel sounds normoactive Neurological - Bilateral upper extremity strength 5/5, bilateral lower extremity strength 4/5, no facial droop, normal speech, no tremor, no sensory deficiets. laboratory and microbiology Laboratory Tests 07/27/24 06:30 Test 07/27/24 06:30 Range/Units Serum Glucose 115 H 74-106 mg/dL Microbiology Date/Time Source Procedure Growth Status 07/19/24 15:45 Nose MRSA Screen - Final Complete Problem List/Assessment/Plan Problem List/Assessment/Plan Cardiovascular/infectious Sepsis with underlying bowel perforation S/p exploratory laparotomy Lactic acidosis - on cefazolin Gastrointestinal Acute intractable abdominal pain Omental Carcinomatosis Metastatic neuroendocrine tumor, G2 Small bowel perforation likely ischemic S/p exploratory laparotomy with tumor excision and enteroenterostomy - tolerated clear liquid diet well, advanced to full liquid diet - MERVIN drain with serous discharge - hem/onc consulted Endocrinology H/O hypothyroidism - on levothyroxine 100 mcg daily PICC line PUD prophylaxis: protonix DVT prophylaxis: enoxaparin Goals of care discussed with the patient and her daughter for over 31 minutes. Code status: Full code time spent : 53 minutes Plan discussed with Dr. Blount Plan discussed with: Patient, Daughter, Other My Orders My Orders Orders - PERRY MIRELES RESIDENT Procedure Category Date Status Time Hydrocodone-Acet PHA 07/27/24 In Process 5/325mg Tab ([place] 13:00 Nutritional PHA 07/27/24 In Process Supplements (Ensure 18:00 Pantoprazole Tablet PHA 07/28/24 In Process (Protonix Tablet) 06:00 Levothyroxine Tablet PHA 07/28/24 In Process (Synthroid Tablet) 06:00 Complete Blood Count LAB 07/28/24 Verified 04:00 Basic Metabolic Panel LAB 07/28/24 Verified 04:00 Soft Diet DIET 07/27/24 Transmitted Dinner Dietary Evaluation Review Comments: TPN per pharmacy to meet 75% of her needs. until GI heals and able to accept TF or PO feeding Expected Outcomes/Goals: maintain wt. Date of Service: Jul 27, 2024 Billing Provider: JULIO BLOUNT MD Common Visit Codes: [id number] INP/OBS CARE(HIGH) PERRY MIRELES RESIDENT Jul 27, 2024 19:36 JULIO BLOUNT MD Jul 28, 2024 13:43
[2024-07-28] VITALS (8 sets, daily range): BP systolic 98–125; BP diastolic 59–64; PULSE 68–81; RESP 16–18; TEMP 97.9–98.6; O2SAT 93–95
[2024-07-28] MEDS: LEVOTHYROXINE SODIUM 100 MCG TAB PO SCH (05:24)
[2024-07-28] MEDS: PANTOPRAZOLE 40 MG TAB PO SCH (05:24)
[2024-07-28 07:15] LABS: Basophils # (auto) 0.1 10 ^3/uL (0-0.2); Basophils % (auto) 0.8 % (0.0-2.0); Eosinophils # (auto) 0.3 10 ^3/uL (0-0.8); Eosinophils % (auto) 3.3 % (0.0-7.0); Hematocrit 31.4 % (36.0-46.0); Hemoglobin 10.9 g/dL (12.2-16.2); Lymphocytes % (auto) 11.8 % (10.0-50.0); Mean Corpuscular Hemoglobin 30.9 pg (28.0-32.0); Mean Corpuscular Hgb Conc. 34.8 g/dL (32.0-36.0); Mean Corpuscular Volume 88.9 fL (80.0-100.0); Monocytes # (auto) 0.8 10 ^3/uL (0-1.3); Monocytes % (auto) 9.7 % (0.0-12.0); Neutrophils # (auto) 6.2 10 ^3/uL (1.6-8.6); Neutrophils % (auto) 74.4 % (37.0-80.0); Platelet Count (auto) 437 10^3/uL (140-450); Red Blood Cells 3.54 10^6/uL (4.0-5.20); Red Cell Distribution Width 16.2 % (11.8-14.3); White Blood Cell 8.3 10^3/uL (4.4-10.8)
[2024-07-28 07:25] LABS: Anion Gap 7 (5-15); Carbon Dioxide 27 mmol/L (20-31); Chloride 104 mmol/L (98-107); Potassium 4.1 mmol/L (3.5-5.1); Sodium 138 mmol/L (136-145)
[2024-07-28 07:31] LABS: Glucose 97 mg/dL (74-106)
[2024-07-28 07:40] LABS: BUN/Creatinine Ratio 8.5 (10.0-20.0); Blood Urea Nitrogen < 5 mg/dL (9-23); Calcium 8.6 mg/dL (8.7-10.4)
--- NOTE | 2024-07-28 17:24 | DVHPNRES ---
Progress Note Date Seen: Jul 28, 2024 Resident Creating Document: PERRY MIRELES RESIDENT Medical Necessity Reason Pt with a Central, PICC or Fol: No Subjective Review of Systems Patient is a 59-year-old female with a past medical history of hypothyroidism, gallstones, hyperlipidemia, psoriatic arthritis presented to the ED with a chief complaint of sudden onset abdominal pain for few hours prior to admission. Patient reports that she was awoke can up by the severe pain around 1:00 a.m. on Friday morning and she had nausea but no vomiting. She reports that she has been having abdominal problems since summer last year, came to the hospital in December 2023 where she was diagnosed with gallstones and biliary colic and was sent home from the ER. She continued to have on and off diarrhea with watery and loose stools, exacerbated by certain foods like leafy vegetables associated with the abdominal pain. Patient denied blood in stools, fever, chills but had episodes of nausea but no vomiting. Past medical history: As per HPI Past Surgical history: Hernia repair, right ankle surgery Social history: Lives with family and denies smoking, alcohol, drug use Home medications: Levothyroxine 100 mcg, methotrexate 2.5 mg, adalimumab, rosuvastatin Review of systems Patient was seen and examined with the bedside abd pain has improved and the patient is ambulating, denies any other acute complaints 2 bowel movements overnight tolerated soft diet MERVIN drain- serous discharge Objective vital signs Vital Sign Date Time Temp Pulse Resp B/P (MAP) Pulse Ox O2 Delivery O2 Flow Rate FiO2 07/28/24 16:46 97.9 68 18 98/61 (73) 93 97.9 07/28/24 08:00 Room Air* 0 21 Total Intake and Output 07/27/24 07/27/24 07/28/24 15:00 23:00 07:00 Intake Total 650 ml 1175 ml Output Total 140 ml Balance 650 ml 1035 ml medications Current Medications Medications Dose Ordered Sig/Nabeel Route Start Time Stop Time Status Last Admin Dose Admin Sodium Chloride 1,000 ml @ 100 mls/hr Q10H IV 07/19/24 08:15 Cancel Ondansetron HCl 4 mg Q4HPRN PRN IV 07/20/24 00:45 07/28/24 13:50 4 MG Hydromorphone HCl 1 mg Q3HPRN PRN IV 07/20/24 14:15 Hold 07/24/24 17:03 1 MG Sodium Chloride 10 ml QSHIFT@10,22 IV 07/23/24 22:00 07/28/24 08:39 10 ML Ketorolac Tromethamine 15 mg Q4HP PRN IV 07/24/24 17:30 07/29/24 17:29 07/28/24 12:13 15 MG Trazodone HCl 50 mg HS PO 07/25/24 22:00 07/27/24 22:21 50 MG Enoxaparin Sodium 40 mg DAILY SC 07/26/24 10:00 07/28/24 08:40 40 MG Fat Emulsion Intravenous 150 ml/Sodium Acetate 40 meq/Potassium Chloride 40 meq/ Calcium Gluconate 1.15 meq/ Magnesium Sulfate 18 meq/ Multivitamins 10 ml/Chromium/ Copper/Manganese/ Zinc 1 ml/Amino Acids/Dextrose 1,507.9731 ml @ 63 mls/hr [id number] IV 07/26/24 22:00 07/27/24 21:59 Cancel Acetaminophen/ Hydrocodone Bitart 1 tab Q4HPRN PRN PO 07/27/24 13:00 07/28/24 16:31 1 TAB Enteral Nutritional Formula 240 ml BIDWM PO 07/27/24 18:00 07/28/24 08:00 240 ML Pantoprazole Sodium 40 mg DAILY@0600 PO 07/28/24 06:00 07/28/24 05:24 40 MG Levothyroxine Sodium 100 mcg QAM@0600 PO 07/28/24 06:00 07/28/24 05:24 100 MCG Examination Constitutional: Patient was alert and oriented to time, place and person and appears to be in distress because of the abdominal pain Gen - no pallor, no icterus, no cyanosis, no clubbing, no LAD, no edema . Skin - Patients skin is warm and dry. HEENT - normocephalic, atraumatic, moist mucous membranes. Neck - full ROM, no LAD, no JVD Pulmonary - B/L equal breath sounds, no crackles, no wheezing cardiovascular - regular S1,S2 heard, no added sounds, no murmurs heard. GI - status post exploratory laparotomy with the abdominal binder, generalized tenderness to palpation is better, bowel sounds normoactive Neurological - Bilateral upper extremity strength 5/5, bilateral lower extremity strength 4/5, no facial droop, normal speech, no tremor, no sensory deficiets. laboratory and microbiology Laboratory Tests 07/28/24 06:00 Test 07/28/24 06:00 Range/Units Serum Glucose 97 74-106 mg/dL Microbiology Date/Time Source Procedure Growth Status 07/19/24 15:45 Nose MRSA Screen - Final Complete Problem List/Assessment/Plan Problem List/Assessment/Plan Cardiovascular/infectious Sepsis with underlying bowel perforation S/p exploratory laparotomy Lactic acidosis - on cefazolin Gastrointestinal Acute intractable abdominal pain Omental Carcinomatosis Metastatic neuroendocrine tumor, G2 Small bowel perforation likely ischemic S/p exploratory laparotomy with tumor excision and enteroenterostomy - tolerated clear liquid diet well, advanced to full liquid diet - MERVIN drain with serous discharge - hem/onc consulted Endocrinology H/O hypothyroidism - on levothyroxine 100 mcg daily psoriatic arthritis PICC line PUD prophylaxis: protonix DVT prophylaxis: enoxaparin Goals of care discussed with the patient and her daughter for over 31 minutes. Code status: Full code time spent : 49 minutes Plan discussed with Dr. Blount Plan discussed with: Patient, Daughter, Other (RN) My Orders My Orders Orders - PERRY MIRELES RESIDENT Procedure Category Date Status Time Soft Diet DIET 07/27/24 Transmitted Dinner Dietary Evaluation Review Comments: TPN per pharmacy to meet 75% of her needs. until GI heals and able to accept TF or PO feeding Expected Outcomes/Goals: maintain wt. Date of Service: Jul 28, 2024 Billing Provider: JULIO BLOUNT MD Common Visit Codes: 92640-[id number] INP/OBS CARE(HIGH) Secondary Visit Codes: 53895-[id number] CARE PLAN 30 MINUTES PERRY MIRELES Jul 28, 2024 17:24 JULIO BLOUNT MD Jul 29, 2024 11:39
[2024-07-29 01:00] VITALS: BP 94/52; PULSE 72; RESP 18; TEMP 97.7; O2SAT 91
[2024-07-29 05:00] VITALS: BP 121/67; PULSE 67; RESP 18; TEMP 98.1; O2SAT 91
[2024-07-29 07:21] LABS: Basophils # (auto) 0.1 10 ^3/uL (0-0.2); Basophils % (auto) 0.9 % (0.0-2.0); Eosinophils # (auto) 0.2 10 ^3/uL (0-0.8); Eosinophils % (auto) 2.8 % (0.0-7.0); Hematocrit 32.2 % (36.0-46.0); Hemoglobin 11.1 g/dL (12.2-16.2); Lymphocytes # (auto) 1.1 10 ^3/uL (0.4-5.4); Lymphocytes % (auto) 13.5 % (10.0-50.0); Mean Corpuscular Hemoglobin 30.4 pg (28.0-32.0); Mean Corpuscular Hgb Conc. 34.6 g/dL (32.0-36.0); Mean Corpuscular Volume 87.9 fL (80.0-100.0); Monocytes # (auto) 0.6 10 ^3/uL (0-1.3); Monocytes % (auto) 7.8 % (0.0-12.0); Neutrophils # (auto) 6.2 10 ^3/uL (1.6-8.6); Platelet Count (auto) 493 10^3/uL (140-450); Red Blood Cells 3.66 10^6/uL (4.0-5.20); Red Cell Distribution Width 16.4 % (11.8-14.3); White Blood Cell 8.3 10^3/uL (4.4-10.8)
[2024-07-29 08:15] VITALS: PULSE 72; RESP 17; O2SAT 91
[2024-07-29 09:00] VITALS: BP 108/63; PULSE 72; RESP 17; TEMP 98.3; O2SAT 91
[2024-07-29] MEDS ORDERED: PERCOT PO (11:37)
[2024-07-29] MEDS ORDERED: PANT40TA2 PO (11:37)
[2024-07-29] MEDS ORDERED: ZOFR4T PO (11:37)
[2024-07-29 13:00] VITALS: BP 117/73; PULSE 64; RESP 17; TEMP 98; O2SAT 94
[2024-07-29 13:23] VITALS: BP 141/49; PULSE 65; RESP 19; TEMP 99.5; O2SAT 94
[2024-07-29] MEDS ORDERED: LEVO100T8 PO (13:54)
--- NOTE | 2024-07-29 13:54 | DVHDSRES ---
Discharge Summary Date of Admission Resident Creating Document: PERRY MIRELES RESIDENT Jul 19, 2024 at 08:15 Date of Discharge: Jul 29, 2024 Admitting Diagnosis Small bowel perforation, Possible cancer, Hypothyroidism, Hyperlipidemia, Wounds: Status post exploratory laparotomy with midline wound covered in sterile dressing and abdominal binder Labs/Diagnostic Data: Laboratory Results Test 07/29/24 05:57 07/28/24 06:00 07/27/24 17:34 07/27/24 06:30 White Blood Count 8.3 10^3/uL (4.4-10.8) Red Blood Count 3.66 10^6/uL (4.0-5.20) Hemoglobin 11.1 g/dL (12.2-16.2) Hematocrit 32.2 % (36.0-46.0) Mean Corpuscular Volume 87.9 fL (80.0-100.0) Mean Corpuscular Hemoglobin 30.4 pg (28.0-32.0) Mean Corpuscular Hemoglobin Concent 34.6 g/dL (32.0-36.0) Red Cell Distribution Width 16.4 % (11.8-14.3) Platelet Count 493 10^3/uL (140-450) Mean Platelet Volume 8.4 fL (6.9-10.8) Neutrophils (%) (Auto) 75.0 % (37.0-80.0) Lymphocytes (%) (Auto) 13.5 % (10.0-50.0) Monocytes (%) (Auto) 7.8 % (0.0-12.0) Eosinophils (%) (Auto) 2.8 % (0.0-7.0) Basophils (%) (Auto) 0.9 % (0.0-2.0) Neutrophils # (Auto) 6.2 10 ^3/uL (1.6-8.6) Lymphocytes # (Auto) 1.1 10 ^3/uL (0.4-5.4) Monocytes # (Auto) 0.6 10 ^3/uL (0-1.3) Eosinophils # (Auto) 0.2 10 ^3/uL (0-0.8) Basophils # (Auto) 0.1 10 ^3/uL (0-0.2) Nucleated Red Blood Cells 0.0 % Sodium Level 138 mmol/L (136-145) Potassium Level 4.1 mmol/L (3.5-5.1) Chloride Level 104 mmol/L (98-107) Carbon Dioxide Level 27 mmol/L (20-31) Anion Gap 7 (5-15) Blood Urea Nitrogen < 5 mg/dL (9-23) Creatinine 0.59 mg/dL (0.550-1.02) Glomerular Filtration Rate Calc 105 mL/min (>90) BUN/Creatinine Ratio 8.5 (10.0-20.0) Serum Glucose 97 mg/dL (74-106) Calcium Level 8.6 mg/dL (8.7-10.4) POC Glucose 122 mg/dl (70-106) Phosphorus Level 4.1 mg/dL (2.4-5.1) Magnesium Level 2.1 mg/dL (1.6-2.6) Total Bilirubin 0.4 mg/dL (0.2-1.0) Aspartate Amino Transferase (AST) 21 U/L (13-40) Alanine Aminotransferase (ALT) < 9 U/L (7-40) Alkaline Phosphatase 151 U/L (46-116) Total Protein 5.2 g/dL (5.7-8.2) Albumin 2.9 g/dL (3.2-4.8) Test 07/24/24 05:57 07/22/24 14:04 07/19/24 06:18 07/19/24 04:00 Triglycerides Level 108 mg/dL (< 150) Prothrombin Time 11.8 sec (9.3-11.8) Prothrombin Time INR 1.13 (0.9-1.15) Activated Partial Thromboplast Time 31.6 SEC (24.5-34.5) Lactic Acid Level 1.8 mmol/L (0.4-2.0) Troponin I High Sensitivity < 3 ng/L (</=34) Thyroid Stimulating Hormone (TSH) 2.88 uIU/mL (0.55-4.78) Creatine Kinase 56 U/L (34-145) C-Reactive Protein High Sensitivity 0.91 mg/dL (<1.0) B-Type Natriuretic Peptide 51.53 pg/mL (0-100) Lipase 38 U/L (12-53) Plasma/Serum Blood Alcohol < 3.0 mg/dL (<10) Other Laboratory Tests 07/29/24 05:57 07/28/24 06:00 Brief Hx & Hospital Course: HPI Patient is a 59-year-old female with a past medical history of hypothyroidism, gallstones, hyperlipidemia, psoriatic arthritis presented to the ED with a chief complaint of sudden onset abdominal pain for few hours prior to admission. Patient reports that she was awoke can up by the severe pain around 1:00 a.m. on Friday morning and she had nausea but no vomiting. She reports that she has been having abdominal problems since summer last year, came to the hospital in December 2023 where she was diagnosed with gallstones and biliary colic and was sent home from the ER. She continued to have on and off diarrhea with watery and loose stools, exacerbated by certain foods like leafy vegetables associated with the abdominal pain. Patient denied blood in stools, fever, chills but had episodes of nausea but no vomiting. Past medical history: As per HPI Past Surgical history: Hernia repair, right ankle surgery Social history: Lives with family and denies smoking, alcohol, drug use Home medications: Levothyroxine 100 mcg, methotrexate 2.5 mg, adalimumab, rosuvastatin Hospital course Patient was admission underwent a CT abdomen pelvis without contrast which showed 3.6 cm delete presented to the, small bowel wall thickening distant with intubated pneumoperitoneum consistent with small bowel perforation following which surgery were consulted and patient underwent exploratory laparotomy with the enteroenterostomy and frozen section from mass sent was positive for carcinoma following which the sample for biopsy was sent. Patient was shifted to the ICU post surgery where she remained stable and was downgraded to telemetry. Post patient did not pass flatus or bowel movement, was kept on NG tube to suction. Small-bowel series was done. Patient had a bowel on 07/26 following which she was started on clear liquid diet which she tolerated well with the diet was advanced as tolerated. Biopsy results in the mesenteric and omental mass came back positive for metastatic neuroendocrine tumor G2. Oncology were consulted and were called who reported that nothing to be done inpatient and the patient to follow up once discharged in the outpatient clinic for further management. Patient continued to have serous drainage from the MERVIN drain and was sent home with the drain. After clearance from surgery, patient was discharged in stable condition to home. Disability paperwork was filled by Discharge plan Follow up in the discharge clinic within 1 week on the scheduled appointment for further referral to Oncology Follow up in the outpatient surgery clinic in 10 days on the scheduled appointment Medications: Protonix, Zofran, Percocet for pain, continued on home medication Front wheel walker Time spent on discharge planning 36 minutes Plan discussed with Consults/Reason for consult Surgical consultation for small bowel perforation Operations or Procedures DATE OF SURGERY: 07/19/2024 PREOPERATIVE DIAGNOSES: * Pneumoperitoneum. * Abdominal sepsis. * Carcinomatosis. POSTOPERATIVE DIAGNOSES: * Carcinomatosis. * Tumor in omentum (excised for biopsy). * Tumor in mesentery, excised. * Ischemic small bowel perforation thereof, excised. * Enteroenterostomy (stapled). DESCRIPTION OF PROCEDURE: Under general endotracheal anesthesia, with the patient's skin prepped and draped, a midline incision was made and abdominal fluid evacuated. Cultures were submitted. There was a loop of midportion of the small bowel which was ischemic appearing and had a small perforation in the antimesenteric border. This loop of bowel was ischemic in its entirety and it was excised by division of the mesentery between Pean clamps and ligature of the mesenteric vessels. Subsequently, a tumor in the mesentery which was causing an obstruction of the bowel was excised and submitted. Subsequently, the bowel was inspected for viability which was assured and a ipfo-ov-pyyx anastomosis established between the remaining bowel by stapling with a JUAN JOSE stapler. The staple line was reinforced with 3-0 Prolene suture. The mesenteric defect was approximated using 2-0 Monocryl suture. Abdomen was profusely irrigated with warm saline which was then aspirated. An omental implant was biopsied while the omentum ligated for hemostasis. A 10 mm Med-Remy drain was inserted into the peritoneal cavity and exteriorized through a separate stab wound incision. Following assurance of complete hemostasis, the procedure was terminated. Instrumentation was withdrawn. Laparotomy packs were withdrawn. Needle and sponge count being reported as accurate x2. The abdominal wall was approximated using #1 double-stranded PDS suture. Abdominal incision approximated using Monocryl suture, Dermabond glue, and Steri-Strips. At the completion of the procedure, biopsy was obtained. Frozen section of the omental implant reported as carcinoma present. Frozen section of the ischemic bowel revealed no gross evidence of tumor and small perforation at the site indicated by suture. The tumor in the mesentery was excised but frozen sections were not obtained. There was evidence of diffuse carcinomatosis involving mesentery serosal surfaces and omentum as well as the anterior abdominal wall. The patient left the operating room following an accurate needle and sponge count. , Gui Guerra, was thoroughly informed at [phone]. I informed the that the patient has diffuse seeding of the abdominal cavity with cancer and that the bowel was resected due to its ischemia and perforation, that the bowel was anastomosed together, and that the biopsy of the omentum did show carcinoma in the omental surfaces. Adi Eduardo MD PF/NAZ TID: [id number] RECEIPT: [id number] Condition at Discharge: Good Final Diagnosis/Problems List Sepsis with underlying bowel perforation S/p exploratory laparotomy Lactic acidosis Acute intractable abdominal pain Omental Carcinomatosis Metastatic neuroendocrine tumor, G2 Small bowel perforation likely ischemic S/p exploratory laparotomy with tumor excision and enteroenterostomy H/O hypothyroidism H/o psoaritic arthritis Discharge Disposition: Home Discharge Instruct/Medications Diet: Regular Diet comment: soft Activity: Light activity Follow Up/Referral: Follow up in the discharge clinic in one week Follow up in the surgery outpatient clinic in 10 days as per the scheduled appointment Medications: as per EMR Discharge Statement: "Patient was advised to return to the ER or call 911 if any headaches, dizziness, shortness of breath, chest pain, abdominal pain, bleeding, fevers, or worsening of medical condition. Patient was counseled about treatment plan, medications, possible side effects, patientverbalized understanding. All questions were answered to the best of my ability. This discharge took greater then 30 minutes in planning, reviewing documentation, counseling the patient, and discussing with other team members." ASSESSMENT ASSESSMENT Assessment s/p exlap with resection Date of Service: Jul 29, 2024 Billing Provider: JULIO BLOUNT MD Common Visit Codes: 06077-QLL/OBS DISCH DAY >30min PERRY MIRELES RESIDENT Jul 29, 2024 13:54 JULIO BLOUNT MD Jul 31, 2024 12:48
--- NOTE | 2024-07-29 14:00 | DVHPN2 ---
Progress Note Date Seen: Jul 29, 2024 Medical Necessity Reason Pt with a Central, PICC or Fol: No Objective vital signs Vital Sign Date Time Temp Pulse Resp B/P (MAP) Pulse Ox O2 Delivery O2 Flow Rate FiO2 07/29/24 13:23 99.5 65 19 94 07/29/24 08:15 Room Air* 0 21 07/29/24 05:00 121/67 (85) Total Intake and Output 07/28/24 07/28/24 07/29/24 15:00 23:00 07:00 Intake Total 450 ml Output Total 70 ml Balance 450 ml -70 ml medications Current Medications Medications Dose Ordered Sig/Nabeel Route Start Time Stop Time Status Last Admin Dose Admin Sodium Chloride 1,000 ml @ 100 mls/hr Q10H IV 07/19/24 08:15 Cancel Ondansetron HCl 4 mg Q4HPRN PRN IV 07/20/24 00:45 07/28/24 13:50 4 MG Hydromorphone HCl 1 mg Q3HPRN PRN IV 07/20/24 14:15 Hold 07/24/24 17:03 1 MG Sodium Chloride 10 ml QSHIFT@10,22 IV 07/23/24 22:00 07/29/24 10:00 10 ML Ketorolac Tromethamine 15 mg Q4HP PRN IV 07/24/24 17:30 07/29/24 17:29 07/29/24 09:41 15 MG Trazodone HCl 50 mg HS PO 07/25/24 22:00 07/28/24 22:15 50 MG Enoxaparin Sodium 40 mg DAILY SC 07/26/24 10:00 07/29/24 09:41 40 MG Fat Emulsion Intravenous 150 ml/Sodium Acetate 40 meq/Potassium Chloride 40 meq/ Calcium Gluconate 1.15 meq/ Magnesium Sulfate 18 meq/ Multivitamins 10 ml/Chromium/ Copper/Manganese/ Zinc 1 ml/Amino Acids/Dextrose 1,507.9731 ml @ 63 mls/hr [id number] IV 07/26/24 22:00 07/27/24 21:59 Cancel Acetaminophen/ Hydrocodone Bitart 1 tab Q4HPRN PRN PO 07/27/24 13:00 07/29/24 11:34 1 TAB Enteral Nutritional Formula 240 ml BIDWM PO 07/27/24 18:00 07/29/24 08:13 240 ML Pantoprazole Sodium 40 mg DAILY@0600 PO 07/28/24 06:00 07/29/24 05:04 40 MG Levothyroxine Sodium 100 mcg QAM@0600 PO 07/28/24 06:00 07/29/24 05:04 100 MCG laboratory and microbiology Laboratory Tests 07/29/24 05:57 07/28/24 06:00 Test 07/28/24 06:00 Range/Units Serum Glucose 97 74-106 mg/dL Problem List/Assessment/Plan Problem List/Assessment/Plan 07/20/24 patient awake and oriented, fully informed of operative findings and need for adjuvant tretments. abdomen appropriately tender, she is cleared to "down grade"from ICU. keep ngtr in place till pt passes flatus!~ 07/22/24 NO FLATUS, NO BM, WOUND CL;YOLI AND WELL APPROXIMATED, ABDOMEN SLIGHTLY DISTENDED, APPROPRIATELY TENDER, WBC IMPROVED, AFEBRILE, IF NO BOWEL ACTIVITY WITH NEXT 48 HOURS WILL GET GASTROGRAFIN BOWEL SERIES 07/23/25 STILL NO FLATUS OR BM, WOUNDS OKM ABDOMEN TENDER, WILL GET GASTROGRAFIN SMALL BOWEL SERIES 07/25/24 PT THINKS SHE MAY HAVE PASSED FLATUS, ABDOMEN NON DISTENDED, MUCH LESS TENDER, WOUND CLEAN AND WELL APPROXIMATED,XRAY SHOWS CONTRAST IN THE COLON.WILL ALLOW PO LIQUIDS WITH ngt IN PLACE (TO GRAVITY OR CLAMPED. 07/26/24 ABDOMEN STILL VERY TENDER, SHE HAD A BOWEL MOVEMENT AND IS PASSING FLATUS, WOUND CLEAN AND WELL APPROXIMATED, MERVIN DRAINAGE SEROUS. WILL ADVANCE DIET, WILL REQUEST ONCOLOGY CONSULT,SOCIAL SERVICE CONSULT FOR IHSS1 4 MERVIN DRAINAGE SEROUS, ABDOMEN LESSS TENDER, WOUND CLEAN WELL APPROXIMATED, AWAITINH ONCOLOGY CONSULT, SHOULD BE ABLE TO DISCHARGE TOMORROW OR DAY AFTER 07/29/24 DOING WELL, DISCHARGE INSTRUCTIONS GIVEN, RETURN TO CLINIC IN 10 DAYS Plan discussed with: Patient, Daughter Dietary Evaluation Review Comments: TPN per pharmacy to meet 75% of her needs. until GI heals and able to accept TF or PO feeding Expected Outcomes/Goals: maintain wt. MACY ROCHE MD Jul 29, 2024 14:00
== END 2024-07-29 15:00 | disposition home or self-care (01) | DRG 680 ==
LOC: ER 03:37 → OVERFLOW 08:15 → ICU WEST 16:13 → TELE-CENTR 07-20 21:00 → CENTRAL 07-23 23:59
PROVIDERS: ADMIT Internal Medicine; ATTEND Internal Medicine
PROC: 0DBU0ZX Excision of Omentum, Open Approach, Diagnostic (ICD-10-PCS; 2024-07-19)
PROC: 0DB80ZZ Excision of Small Intestine, Open Approach (ICD-10-PCS; 2024-07-19)
PROC: 0DBB0ZZ Excision of Ileum, Open Approach (ICD-10-PCS; 2024-07-19)
PROC: 0DBV0ZZ Excision of Mesentery, Open Approach (ICD-10-PCS; principal; 2024-07-19 09:20)
PROC: 02HV33Z Insertion of Infusion Device into Superior Vena Cava, Percutaneous Approach (ICD-10-PCS; 2024-07-23)
PROC: B548ZZA Ultrasonography of Superior Vena Cava, Guidance (ICD-10-PCS; 2024-07-23)
DX: C7A.8 Other malignant neuroendocrine tumors (principal); K63.1 Perforation of intestine (nontraumatic); A41.9 Sepsis, unspecified organism; K55.9 Vascular disorder of intestine, unspecified; E87.20 Acidosis, unspecified; E03.9 Hypothyroidism, unspecified; E78.5 Hyperlipidemia, unspecified; Z79.899 Other long term (current) drug therapy
CPT/HCPCS: 36415; 36569; 71045; 74018; 74177; 74250; 76937; 80048; 80053; 80320; 82550; 82962; 83605; 83690; 83735; 83880; 84100; 84443; 84478; 84484; 85025; 85610; 85730; 86141; 86850; 86900; 86901; 87070; 87075; 87081; 87205; 93005; 96365; 96375; 97110; 97116; 97163; 97530; 99291; G0378; J0131; J0330; J1100; J1815; J1885; J2003; J2405; J2470; J2543; J3490; J7131

== ENCOUNTER 2024-11-03 11:50 | Inpatient (IN) | payer MEDICAID ==
[~2024-11-03] VITALS: Ht 175.3 cm; Wt 61.9 kg
[~2024-11-03 11:50] MED LIST changes: -ACE3T PO; -FAMO20TA10 PO; -HYDR-4902 PO; +LEVO100T8 PO; -LEVO25TA2 PO; +PANT40TA2 PO; +PERCOT PO; +ROSU20TA56 PO; -SIMV40TA18 PO; +ZOFR4T PO
--- NOTE | 2024-11-03 12:17 | ED.PDOC ---
GI ASSESSMENT HPI Comments 59-year-old female who comes in with chief complaint of abdominal pain. The patient states that on July 19 she was here for a possible ruptured viscus and underwent surgery. The patient states that she was admitted for approximately 11 days. 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 She states that over the past three days she has been having diffuse abdominal pain. She states that the pain is a 10/10. The pain seems to radiate towards the back. She also states that she has been having some diarrhea. She is able to ambulate into the emergency department's but is having some difficulty walking. She also states that she has a history of gallstones but not sure if this is the pain related to it. Chief Complaint: Abdominal Pain Time Seen by MD: 11:53 Primary Care Provider: NONE BRENDEN IRWIN? Reviewed Notes: Nurses Notes, Medications, Allergies (NKDA ) Allergies: Coded Allergies: NO KNOWN ALLERGIES (Unverified , 07/26/19) Home Meds Active Scripts Levothyroxine Sodium (Levothyroxine Sodium) 100 Mcg Tab, 1 TAB PO QAM for 14 Days, #14 TAB Prov:PERRY MIRELES RESIDENT 07/29/24 Pantoprazole Sodium Sesquihydr (Protonix) 40 Mg Tab, 40 MG PO DAILY for 30 Days, #30 TAB 1 Refill Prov:JULIO BLOUNT MD 07/29/24 Ondansetron Odt 4MG Tab (ZOFRAN PO) 4 Mg Tb, 4 MG PO TIDP PRN for 15 Days, #45 TAB ODT TAB-DISSOLVE IN MOUTH, THEN SWALLOW Prov:JULIO BLOUNT MD 07/29/24 Oxycodone W/ Acetaminophen (Percocet 5/325MG) 1 Tab Tb, 1 TAB PO TID PRN for 20 Days, #60 TAB Prov:JULIO BLOUNT MD 07/29/24 Reported Medications Rosuvastatin Calcium (Rosuvastatin Calcium) 20 Mg Tab, 1 TAB PO DAILY 07/19/24 Adalimumab (Humira Pen) 40 Mg/0.8 Ml Inj, 40 MG SC 2xM, INJ 07/17/21 Methotrexate (Methotrexate) 2.5 Mg Tab, 2.5 MG PO, TAB 07/17/21 Information Source: Patient Mode of Arrival: Ambulatory Timing: Days (Symptoms started three days ago) Duration: Since onset Prehospital treatment: None Quality: Aching, Cramping Vomitus: None Stool: Watery Severity: Moderate Recent: Recent Surgery Recent Hx of: None Pain Location: Diffuse Modifying Factors: Nothing Associated sign and symptoms: Diarrhea, Abdominal Pain Past Medical History PAST MEDICAL HISTORY: Cancer (Neuroendocrine tumor), Gallstones, High Lipids, Thyroid Surgical History (Other): Abdominal surgery, right ankle surgery, breast augmentation 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 Family History Family History: Family hx of Cancer Social History Smoker: Non-Smoker Alcohol: Denies ETOH Use Drugs: Denies Drug Use Lives In: Home Constitutional: reports: weakness; denies: chills, diaphoresis, fatigue, fever, malaise, sweats, others EENTM: denies: blurred vision, double vision, ear bleeding, ear discharge, ear drainage, ear pain, ear ringing, eye pain, eye redness, hearing loss, mouth pain, mouth swelling, nasal discharge, nose bleeding, nose congestion, nose pain, photophobia, tearing, throat pain, throat swelling, voice changes, others Respiratory: denies: cough, hemoptysis, orthopnea, SOB at rest, shortness of breath, SOB with excertion, stridor, wheezing, others Cardiovascular: denies: chest pain, dizzy spells, diaphoresis, Dyspnea on exertion, edema, irregular heart beat, left arm pain, lightheadedness, palpitations, PND, syncope, others Gastrointestinal: reports: abdomen distended, abdominal pain; denies: blood streaked bowels, constipated, diarrhea, dysphagia, difficulty swallowing, hematemesis, melena, nausea, poor appetite, poor fluid intake, rectal bleeding, rectal pain, vomiting, others Genitourinary: denies: abnormal vagina bleeding, burning, dyspareunia, dysuria, flank pain, frequency, hematuria, incontinence, pain, , vagina discharge, urgency, others Neurological: denies: dizziness, fainting, headache, left sided numbness, left sided weakness, numbness, paresthesia, pre-existing deficit, right sided numbness, right sided weakness, seizure, speech problems, tingling, tremors, weakness, others Musculoskeletal: denies: back pain, gout, joint pain, joint swelling, muscle pa in, muscle stiffness, neck pain, others Integumetry: denies: bruises, change in color, change in hair/nails, dryness, laceration, lesions, lumps, rash, wounds, others Allergic/Immunocompromised: denies: Difficulty Healing, Frequent Infections, Hives, Itching, others Hematologic/Lymphatic: denies: anemia, blood clots, easy bleeding, easy bruising, swollen glands, others Endocrine: denies: excessive hunger, excessive sweating, excessive thirst, excessive urination, flushing, intolerance to cold, intolerance to heat, unexplained weight gain, unexplained weight loss, others Physical Exam General Appearance: Moderate Distress HEENT: Normal ENT Inspection, Pharynx Normal, TMs Normal Neck: Full Range of Motion, Non-Tender, Normal, Normal Inspection Respiratory: Chest Non-Tender, Lungs Clear, No Accessory Muscle Use, No Respiratory Distress, Normal Breath Sounds Cardiovascular: No Edema, No JVD, No Murmur, No Gallop, Normal Peripheral P ulses, Regular Rate/Rhythm Breast Exam: Deferred Gastrointestinal: Distended, No Organomegaly, No Pulsatile Mass, Normal Bowel Sounds, Soft, Tenderness Genitalia: Deferred Pelvic: Deferred Rectal: Deferred Extremities: No calf tenderness, Normal capillary refill, Normal inspection, Normal range of motion, Non-tender, No pedal edema Musculoskeletal : Apperance: Normal Neurologic: Alert, slipper maker II-XII nml as Tested, Motor Weakness, Normal Affect, Normal Mood, No Sensory Deficits Cerebellar Function: Normal Reflexes: Normal Skin: Dry, Normal Color, Warm Lymphatic: No Adenopathy Was a procedure done? Was a procedure done?: No GI differential Dx Differential Diagnosis: Gastritis/PUD, Gastroenteritis, Inflammatory BD, Pancreatitis, UTI, Electrolyte Imbalance, Food Poisoning X-Ray, Labs, Meds, VS Vital Signs Date Time Temp Pulse Resp B/P (MAP) Pulse Ox O2 Delivery O2 Flow Rate FiO2 11/03/24 12:44 101 24 97 Room Air* 0 21 11/03/24 12:44 101 24 104/74 11/03/24 12:29 101 24 97 Room Air 11/03/24 12:29 97.7 101 24 104/74 (84) 97 97.7 11/03/24 11:55 97.9 96 18 113/84 96 97.9 Lab Test 11/03/24 12:40 Range/Units White Blood Count 9.9 4.4-10.8 10^3/uL Red Blood Count 4.98 4.0-5.20 10^6/uL Hemoglobin 14.9 12.2-16.2 g/dL Hematocrit 41.5 36.0-46.0 % Mean Corpuscular Volume 83.4 80.0-100.0 fL Mean Corpuscular Hemoglobin 29.9 28.0-32.0 pg Mean Corpuscular Hemoglobin Concent 35.8 32.0-36.0 g/dL Red Cell Distribution Width 16.0 H 11.8-14.3 % Platelet Count 353 140-450 10^3/uL Mean Platelet Volume 8.6 6.9-10.8 fL Neutrophils (%) (Auto) 72.6 37.0-80.0 % Lymphocytes (%) (Auto) 16.6 10.0-50.0 % Monocytes (%) (Auto) 9.1 0.0-12.0 % Eosinophils (%) (Auto) 0.9 0.0-7.0 % Basophils (%) (Auto) 0.8 0.0-2.0 % Neutrophils # (Auto) 7.2 1.6-8.6 10 ^3/uL Lymphocytes # (Auto) 1.6 0.4-5.4 10 ^3/uL Monocytes # (Auto) 0.9 0-1.3 10 ^3/uL Eosinophils # (Auto) 0.1 0-0.8 10 ^3/uL Basophils # (Auto) 0.1 0-0.2 10 ^3/uL Nucleated Red Blood Cells 0.1 % Sodium Level Pending Potassium Level Pending Chloride Level Pending Carbon Dioxide Level Pending Anion Gap Pending Blood Urea Nitrogen Pending Creatinine Pending Glomerular Filtration Rate Calc Pending BUN/Creatinine Ratio Pending Serum Glucose Pending Calcium Level Pending Total Bilirubin Pending Aspartate Amino Transferase (AST) Pending Alanine Aminotransferase (ALT) Pending Alkaline Phosphatase Pending Total Protein Pending Albumin Pending Lipase Pending Current Medications Medications (Trade) Dose Ordered Sig/Nabeel Route Start Time Stop Time Status Last Admin Ondansetron HCl (Zofran) 4 mg ONCE ONCE IV 11/03/24 12:15 11/03/24 12:16 DC 11/03/24 12:43 Morphine Sulfate 4 mg ONCE ONCE IV 11/03/24 12:15 11/03/24 12:16 DC 11/03/24 12:44 IV Hep-Lock was established. A CAT scan of the abdomen and pelvis shows: IMPRESSION: Limited evaluation without contrast. Interval postsurgical changes in the right at the site of the previously seen mesenteric lesion. There is residual soft tissue density / mass with spiculation in this region measuring 1.6 cm, previously 3.4 cm. Further evaluation with gallium 68 PET scan / DOTATATE recommended to evaluate disease progression. Extensive bowel wall distention of the ascending, transverse and descending colon with luminal narrowing of the sigmoid colon, concerning for obstruction. Associated bowel wall thickening. Recommend GI, surgical consultation to evaluate for potential obstructive etiology. Mesenteric haziness / stranding and nodularity most pronounced in the lower abdomen / pelvis, likely representing carcinomatosis / peritoneal implants. 5 mm left lower lobe soft tissue nodule, slightly more pronounced than on previous examination. The patient was given morphine 4 mg IV push for the pain The patient was given Zofran 4 mg IV push for the nausea The patient's CBC is within normal limits At this time, the patient is being admitted An NG-tube is being placed. Images Reviewed?: Images reviewed and evaluated by me Time of 1ST Reevaluation: 12:16 Reevaluation 1ST: Unchanged Patient Education/Counseling: Diagnosis, Treatment, Prognosis Family Education/Counseling: No Family Present SEPSIS Sepsis Screen Date sepsis recognized/suspect: Nov 03, 2024 Time Sepsis recognized/suspect: 1154 Recent Procedure: No On Antibiotic Therapy: No Respiratory Rate >20: No Heart Rate >90: Yes Temp<36 C (96.8 F) or >38.3 C: No SBP <90 or MAP <65 mmHG: No New Acute Mental Status Change: No Is the patient on CPAP, BIPAP,: No Physician Orders Comprehensive Metabolic Panel (11/03/24 12:12) Lipase (11/03/24 12:12) Urinalysis (11/03/24 12:12) Ct Ab Pel Wo Con-No Oral Or Iv (11/03/24 12:12) Heplock Iv (11/03/24 12:12) Screw Machine Set Up Operator (11/03/24 12:12) Blood Pressure (11/03/24 12:12) Pulse Oximetry (11/03/24 12:12) Vital Signs Date Time Temp Pulse Resp B/P (MAP) Pulse Ox O2 Delivery O2 Flow Rate FiO2 11/03/24 12:44 101 24 97 Room Air* 0 21 11/03/24 12:44 101 24 104/74 11/03/24 12:29 101 24 97 Room Air 11/03/24 12:29 97.7 101 24 104/74 (84) 97 97.7 11/03/24 11:55 97.9 96 18 113/84 96 97.9 Laboratory Tests Test 11/03/24 12:40 White Blood Count 9.9 10^3/uL (4.4-10.8) Medications Medications Dose Ordered Sig/Nabeel Route Start Time Stop Time Status Last Admin Dose Admin Morphine Sulfate 4 mg ONCE ONCE IV 11/03/24 12:15 11/03/24 12:16 DC 11/03/24 12:44 Ondansetron HCl 4 mg ONCE ONCE IV 11/03/24 12:15 11/03/24 12:16 DC 11/03/24 12:43 Departure 1 Departure Time of Disposition: 13:19 Impression: Primary Impression: Intractable abdominal pain Additional Impression: Small bowel obstruction Disposition: 09 ADMITTED INPATIENT Admit to: Med Surg Condition: Fair Critical Care Note Critical Care Time?: No Stability Stability form required: Yes Unstable for transfer: ED Physician Assesment (Clinical assesment) Heart Score Heart Score: Heart Score Response (Comments) Value History N/A 0 EKG N/A 0 Age N/A 0 Risk Factors N/A 0 Troponin N/A 0 Total 0 HE ESPINOZA MD Nov 03, 2024 12:17
[2024-11-03] MEDS: ONDANSETRON HCL 4 MG/2 ML VIAL IV ONE ×2 (12:43→16:27)
[2024-11-03 12:44] VITALS: PULSE 101; RESP 24; O2SAT 97
[2024-11-03] MEDS: MORPHINE SULFATE 4 MG/ML SYR/VIAL IV ONE ×2 (12:44→16:28)
--- NOTE | 2024-11-03 13:02 | DVH ---
Indication: pain Technique: CT axial images of the abdomen and pelvis are obtained without contrast. Coronal and sagit ryan reformats were obtained. Radiation Dose Information: CTDI volume is 5.52 mGy. Dose-length product is 3.92 mGy*cm Comparison: 07/19/2024 FINDINGS: There is limited interpretation of the abdomen and pelvis without administration of intravenous contr ast. Lung bases demonstrate atelectasis. 5 mm left lower lobe solid nodule. 3 mm left lower lobe solid nod ule. Adrenal glands, spleen, pancreas unremarkable in shape. Cholelithiasis. Liver unremarkable in shape. The kidneys demonstrate no hydronephrosis. Nonobstructing left renal calculus measuring 2 mm. Stomach is partially distended. Small bowel loops are relatively nondistended. Narrowing of the sigm oid colon. Otherwise, there is marked distention of the large bowel diffusely with air-fluid levels. Large bowel dilated up to approximately 7 cm. Interval postsurgical changes in the right abdomen at the region of the previously seen soft tissue d ensity in the right abdominal mesentery. There is soft tissue density with spiculation measuring 1.6 x 1.6 cm, previously 2.7 x 3.4 cm. There is surrounding desmoplastic reaction which is less pronounc ed than on previous examination. The bladder is partially distended. Bladder wall thickening with surrounding stranding. No inguinal lymphadenopathy. Retroperitoneal lymph nodes measuring up to 10 mm. Mesenteric haziness/ stranding and nodularity most pronounced in the lower abdomen / pelvis. [id number] bilateral sacroiliac degenerative joint disease. Moderate lumbar degenerative disc d isease most pronounced at L4-5 and L5-S1. IMPRESSION: Limited evaluation without contrast. Interval postsurgical changes in the right at the site of the previously seen mesenteric lesion. The re is residual soft tissue density / mass with spiculation in this region measuring 1.6 cm, previousl y 3.4 cm. Further evaluation with gallium 68 PET scan / DOTATATE recommended to evaluate disease prog ression. Extensive bowel wall distention of the ascending, transverse and descending colon with luminal narrow ing of the sigmoid colon, concerning for obstruction. Associated bowel wall thickening. Recommend G I, surgical consultation to evaluate for potential obstructive etiology. Mesenteric haziness / stranding and nodularity most pronounced in the lower abdomen / pelvis, likely representing carcinomatosis / peritoneal implants. 5 mm left lower lobe soft tissue nodule, slightly more pronounced than on previous examination. Other findings as described.
[2024-11-03 13:05] LABS: Hematocrit 41.5 % (36.0-46.0); Hemoglobin 14.9 g/dL (12.2-16.2); Mean Corpuscular Hemoglobin 29.9 pg (28.0-32.0); Mean Corpuscular Volume 83.4 fL (80.0-100.0); Nucleated Red Blood Cells % 0.1 %
[2024-11-03 13:19] LABS: Alanine Aminotransferase 17 U/L (7-40); Anion Gap 10 (5-15); BUN/Creatinine Ratio 14.3 (10.0-20.0); Bilirubin, Total 0.8 mg/dL (0.2-1.0); Blood Urea Nitrogen 9 mg/dL (9-23); Calcium 9.4 mg/dL (8.7-10.4); Carbon Dioxide 24 mmol/L (20-31); Glucose 90 mg/dL (74-106); Lipase 37 U/L (12-53); Potassium 3.6 mmol/L (3.5-5.1); Sodium 141 mmol/L (136-145); Total Protein 7.8 g/dL (5.7-8.2)
[2024-11-03 13:20] LABS: Albumin 4.9 g/dL (3.2-4.8); Alkaline Phosphatase 126 U/L (46-116); Chloride 107 mmol/L (98-107)
[2024-11-03 14:27] LABS: Urine Protein, UAD 1+ (Negative)
[2024-11-03] MEDS ORDERED: BENZOCAINE (DENTAL) 20 % SPRAY 60ML MT ONE (16:15)
[2024-11-03] MEDS: LIDOCAINE VISCOUS 2% 15ML UD PO ONE (16:26)
[2024-11-03] MEDS: LORazepam 2MG/ML-1ML VIAL IV ONE (16:27)
--- NOTE | 2024-11-03 16:56 | DVH ---
CHEST RADIOGRAPH Indication: TUBE PLACEMENT Technique: Single frontal view of the chest was obtained COMPARISON: XY CHEST XRAY 1 VIEW on DOS: 07/19/24, CHEST XRAY 1 VIEW on DOS: 07/26/19 FINDINGS: Lines and Tubes: Enteric catheter in satisfactory position. Lungs: Congestion Pleura: No effusion. No pneumothorax. Cardiomediastinal contours: Unremarkable Bones: Unremarkable IMPRESSION: Enteric catheter in satisfactory position.
--- NOTE | 2024-11-03 18:14 | DVHHP2 ---
Admitting Diagnosis: abdominal pain History of Present Illness 59-year-old female who comes in with chief complaint of abdominal pain. The patient states that on July 19 she was here for a possible ruptured viscus and underwent surgery. The patient states that she was admitted for approximately 11 days. 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 She states that over the past three days she has been having diffuse abdominal pain. She states that the pain is a 10/10. The pain seems to radiate towards the back. She also states that she has been having some diarrhea. She is able to ambulate into the emergency department's but is having some difficulty walking. She also states that she has a history of gallstones but not sure if this is the pain related to it. 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 Family History: Family hx of Cancer Social History Smoker: Non-Smoker Alcohol: Denies ETOH Use Drugs: Denies Drug Use Lives In: Home Patient Family History: Chronic obstructive pulmonary disease G8 MOTHER, Hypercholesterolemia G8 MOTHER, Hypertension G8 MOTHER, Ischemic heart disease G8 MOTHER, Allergies: Coded Allergies: NO KNOWN ALLERGIES (Unverified , 07/26/19) Home Meds Active Scripts Levothyroxine Sodium (Levothyroxine Sodium) 100 Mcg Tab, 1 TAB PO QAM for 14 Days, #14 TAB Prov:PERRY MIRELES 07/29/24 Pantoprazole Sodium Sesquihydr (Protonix) 40 Mg Tab, 40 MG PO DAILY for 30 Days, #30 TAB 1 Refill Prov:JULIO BLOUNT MD 07/29/24 Ondansetron Odt 4MG Tab (ZOFRAN PO) 4 Mg Tb, 4 MG PO TIDP PRN for 15 Days, #45 TAB ODT TAB-DISSOLVE IN MOUTH, THEN SWALLOW Prov:JULIO BLOUNT MD 07/29/24 Oxycodone W/ Acetaminophen (Percocet 5/325MG) 1 Tab Tb, 1 TAB PO TID PRN for 20 Days, #60 TAB Prov:JULIO BLOUNT MD 07/29/24 Reported Medications Rosuvastatin Calcium (Rosuvastatin Calcium) 20 Mg Tab, 1 TAB PO DAILY 07/19/24 Adalimumab (Humira Pen) 40 Mg/0.8 Ml Inj, 40 MG SC 2xM, INJ 07/17/21 Methotrexate (Methotrexate) 2.5 Mg Tab, 2.5 MG PO, TAB 07/17/21 Current Medications Current Medications Medications (Trade) Dose Ordered Sig/Nabeel Route PRN Reason Start Time Stop Time Status Last Admin Sodium Chloride (Saline Lock Ns) 10 ml Q8HR IV 11/03/24 22:00 UNV Docusate Sodium (Colace Capsule) 100 mg BIDPRN PRN PO FOR CONSTIPATION 11/03/24 18:15 UNV Acetaminophen (Tylenol Tablet) 650 mg Q6HP PRN PO PAIN SCALE 1-3 OR TEMP>100.4 11/03/24 18:15 UNV Acetaminophen/ Hydrocodone Bitart ([place] 5/325MG Tab) 1 tab Q4HP PRN PO MODERATE PAIN (4-6 PAIN SCALE) 11/03/24 18:15 UNV Hydromorphone HCl (Dilaudid Injection) 0.5 mg Q4HP PRN IV SEVERE PAIN (7-10 PAIN SCALE) 11/03/24 18:15 UNV Ondansetron HCl (Zofran) 4 mg Q4HP PRN IV NAUSEA / VOMITING 11/03/24 18:15 UNV Enoxaparin Sodium (Lovenox) 40 mg DAILY SC 11/04/24 10:00 UNV Pantoprazole Sodium (Protonix) 40 mg DAILY IV 11/04/24 10:00 UNV Vital Signs Vital Signs Date Time Temp Pulse Resp B/P (MAP) Pulse Ox O2 Delivery O2 Flow Rate FiO2 11/03/24 17:57 71 18 104/62 11/03/24 16:30 98 11/03/24 12:44 Room Air* 0 21 11/03/24 12:29 97.7 97.7 Physical Exam gen: 59 y.o. lying in bed. NAD. NGT HEENT: AT/NC Heart: RRR Lung: CTA b/l Abd: soft, mild tender, non-distended. + surgical scar, healed msk: No edema or cyanosis neuro: AOx3, no focal deficit SEPSIS Sepsis Screen Date sepsis recognized/suspect: Nov 03, 2024 Time Sepsis recognized/suspect: 1155 Recent Procedure: No On Antibiotic Therapy: No Respiratory Rate >20: No Heart Rate >90: Yes Temp<36 C (96.8 F) or >38.3 C: No SBP <90 or MAP <65 mmHG: No New Acute Mental Status Change: No Is the patient on CPAP, BIPAP,: No Physician Orders Ct Ab Pel Wo Con-No Oral Or Iv (11/03/24 12:12) Heplock Iv (11/03/24 12:12) Australian Rules Footballer (11/03/24 12:12) Blood Pressure (11/03/24 12:12) Pulse Oximetry (11/03/24 12:12) Ngt/Ogt (11/03/24 ) Chest Xray 1 View (11/03/24 16:28) * Surgical Consult (11/03/24 ) Admit (11/03/24 18:02) Code Status (11/03/24 18:02) Vital Signs .PER UNIT PROTOCOL (11/03/24 18:02) Review Orders With Adm. (11/03/24 18:02) Encourage Activity As Tolerate (11/03/24 18:02) Npo (Nothing By Mouth) Diet (11/03/24 Dinner) Sodium Chloride Lock (Saline Lock Ns) (11/03/24 22:00) Docusate Sodium Capsule (Colace Capsule) (11/03/24 18:15) Acetaminophen Tablet (Tylenol Tablet) (11/03/24 18:15) Notify Md Of Changes From Base (11/03/24 18:02) Advance Directive (11/03/24 18:02) Patient Condition (11/03/24 18:02) Allergies (11/03/24 18:02) Hydrocodone-Acet 5/325mg Tab ([place] 5/32 (11/03/24 18:15) Hydromorphone Injection (Dilaudid Inject (11/03/24 18:15) Ondansetron Hcl (Zofran) (11/03/24 18:15) Enoxaparin Sodium (Lovenox) (11/04/24 10:00) Comprehensive Metabolic Panel (11/04/24 05:00) Comprehensive Metabolic Panel (11/05/24 05:00) Comprehensive Metabolic Panel (11/06/24 05:00) Comprehensive Metabolic Panel (11/07/24 05:00) Comprehensive Metabolic Panel (11/08/24 05:00) Complete Blood Count (11/04/24 05:00) Complete Blood Count (11/05/24 05:00) Complete Blood Count (11/06/24 05:00) Complete Blood Count (11/07/24 05:00) Complete Blood Count (11/08/24 05:00) Magnesium (11/04/24 05:00) Magnesium (11/05/24 05:00) Magnesium (11/06/24 05:00) Magnesium (11/07/24 05:00) Magnesium (11/08/24 05:00) D5w/Lactated Ringers (D5wlr) (11/03/24 18:15) Pantoprazole (Protonix) (11/04/24 10:00) Ceftriaxone Ivpb Rocephin (11/03/24 18:15) Urine Bacterial Culture (11/03/24 18:08) Vital Signs Date Time Temp Pulse Resp B/P (MAP) Pulse Ox O2 Delivery O2 Flow Rate FiO2 11/03/24 17:57 71 18 104/62 11/03/24 16:30 78 18 111/68 (82) 98 11/03/24 16:28 92 18 111/68 11/03/24 16:00 76 11/03/24 14:20 84 26 101/72 (82) 98 11/03/24 13:41 86 18 99/68 11/03/24 12:44 101 24 97 Room Air* 0 21 11/03/24 12:44 101 24 104/74 11/03/24 12:29 101 24 97 Room Air 11/03/24 12:29 97.7 101 24 104/74 (84) 97 97.7 11/03/24 11:55 97.9 96 18 113/84 96 97.9 Laboratory Tests Test 11/03/24 12:40 White Blood Count 9.9 10^3/uL (4.4-10.8) Medications Medications Dose Ordered Sig/Nabeel Route Start Time Stop Time Status Last Admin Dose Admin Lidocaine HCl 10 ml ONCE ONCE PO 11/03/24 16:15 11/03/24 16:16 DC 11/03/24 16:26 Lorazepam 0.5 mg ONCE ONCE IV 11/03/24 16:00 11/03/24 16:01 DC 11/03/24 16:27 Morphine Sulfate 4 mg ONCE ONCE IV 11/03/24 12:15 11/03/24 12:16 DC 11/03/24 12:44 Morphine Sulfate 4 mg ONCE ONCE IV 11/03/24 16:15 11/03/24 16:16 DC 11/03/24 16:28 Ondansetron HCl 4 mg ONCE ONCE IV 11/03/24 12:15 11/03/24 12:16 DC 11/03/24 12:43 Ondansetron HCl 4 mg ONCE ONCE IV 11/03/24 16:15 11/03/24 16:16 DC 11/03/24 16:27 Results Labs Test 11/03/24 12:40 11/03/24 12:12 Range/Units White Blood Count 9.9 4.4-10.8 10^3/uL Red Blood Count 4.98 4.0-5.20 10^6/uL Hemoglobin 14.9 12.2-16.2 g/dL Hematocrit 41.5 36.0-46.0 % Mean Corpuscular Volume 83.4 80.0-100.0 fL Mean Corpuscular Hemoglobin 29.9 28.0-32.0 pg Mean Corpuscular Hemoglobin Concent 35.8 32.0-36.0 g/dL Red Cell Distribution Width 16.0 H 11.8-14.3 % Platelet Count 353 140-450 10^3/uL Mean Platelet Volume 8.6 6.9-10.8 fL Neutrophils (%) (Auto) 72.6 37.0-80.0 % Lymphocytes (%) (Auto) 16.6 10.0-50.0 % Monocytes (%) (Auto) 9.1 0.0-12.0 % Eosinophils (%) (Auto) 0.9 0.0-7.0 % Basophils (%) (Auto) 0.8 0.0-2.0 % Neutrophils # (Auto) 7.2 1.6-8.6 10 ^3/uL Lymphocytes # (Auto) 1.6 0.4-5.4 10 ^3/uL Monocytes # (Auto) 0.9 0-1.3 10 ^3/uL Eosinophils # (Auto) 0.1 0-0.8 10 ^3/uL Basophils # (Auto) 0.1 0-0.2 10 ^3/uL Nucleated Red Blood Cells 0.1 % Sodium Level 141 136-145 mmol/L Potassium Level 3.6 3.5-5.1 mmol/L Chloride Level 107 98-107 mmol/L Carbon Dioxide Level 24 20-31 mmol/L Anion Gap 10 5-15 Blood Urea Nitrogen 9 9-23 mg/dL Creatinine 0.63 0.550-1.02 mg/dL Glomerular Filtration Rate Calc 103 >90 mL/min BUN/Creatinine Ratio 14.3 10.0-20.0 Serum Glucose 90 74-106 mg/dL Calcium Level 9.4 8.7-10.4 mg/dL Total Bilirubin 0.8 0.2-1.0 mg/dL Aspartate Amino Transferase (AST) 15 13-40 U/L Alanine Aminotransferase (ALT) 17 7-40 U/L Alkaline Phosphatase 126 H 46-116 U/L Total Protein 7.8 5.7-8.2 g/dL Albumin 4.9 H 3.2-4.8 g/dL Lipase 37 12-53 U/L Urine Color Yellow Yellow Urine Clarity Ex.turbid Clear Urine pH 6.0 5.0-9.0 Urine Specific [place] 1.030 1.001-1.035 Urine Protein 1+ H Negative Urine Ketones Negative Negative Urine Blood Negative Negative /uL Urine Nitrite Negative Negative Urine Bilirubin Negative Negative Urine Urobilinogen Normal Negative mg/dL Urine Leukocyte Esterase Negative Negative /uL Urine RBC 3 0 - 4 /hpf Urine Microscopic WBC 20 H 0-5 /HPF Urine Squamous Epithelial Cells Few <5 /hpf Urine Bacteria None seen None Seen /hpf Urine Hyaline Casts Few 0 - 2 /lpf Urine Mucus Few None Seen Urine Glucose Normal Normal mg/dL Primary Diagnosis Large bowel obstruction Carcinomatosis Stage IV neuroendocrine tumor Plan NPO to lower intermittent suction IV fluids Pain control Antiemetic Surgery consult for large bowel obstruction Hold p.o. meds. If prolonged NPO, patient needed IV levothyroxine Full code PPI for GI prophylaxis Lovenox for DVT prophylaxis Plan discussed with: Patient Problems List: (1) Large bowel obstruction (2) Intractable abdominal pain Status: Acute Date of Service: Nov 03, 2024 Billing Provider: CAROL TELLO MD Common Visit Codes: [id number] INP/OBS CARE (HIGH) CAROL TELLO MD Nov 03, 2024 18:14
[2024-11-03] MEDS ORDERED: ACETAMINOPHEN 325 MG TAB PO PRN (18:15)
[2024-11-03] MEDS ORDERED: DOCUSATE SOD 100 MG CAP PO PRN (18:15)
[2024-11-03] MEDS: D5W/LACTATED RINGERS 1,000 ML IV ONE (18:55)
[2024-11-03] MEDS: cefTRIAXone 1GM/50ML D5W 50 ML IV SCH (18:55)
[2024-11-03 19:30] VITALS: PULSE 73; RESP 11; O2SAT 94
[2024-11-03] MEDS: HYDROcodone-ACET 5/325MG TAB PO PRN (20:36)
[2024-11-03] MEDS: SODIUM CHLOR 0.9% PF (SALINE LOCK) 10ML VIAL/SYR IV SCH (21:03)
[2024-11-03 22:37] VITALS: BP 99/63; PULSE 65; RESP 20; TEMP 98.1; O2SAT 94
[2024-11-03 23:05] VITALS: BP 114/59; PULSE 63; RESP 16; TEMP 97.6; O2SAT 93
[2024-11-03] MEDS ORDERED: MULT-1018 PO (23:36)
[2024-11-04] VITALS (8 sets, daily range): BP systolic 102–124; BP diastolic 53–62; PULSE 60–68; RESP 16–18; TEMP 97.6–98.1; O2SAT 92–95
[2024-11-04] MEDS: HYDROmorphone HCL 2 MG/ML VL/or syr IV PRN (06:38)
[2024-11-04 06:58] LABS: Albumin 3.8 g/dL (3.2-4.8); Anion Gap 9 (5-15); BUN/Creatinine Ratio 13.1 (10.0-20.0); Calcium 9.1 mg/dL (8.7-10.4); Carbon Dioxide 27 mmol/L (20-31); Chloride 105 mmol/L (98-107); Glucose 81 mg/dL (74-106); Sodium 141 mmol/L (136-145); Total Protein 5.8 g/dL (5.7-8.2)
[2024-11-04 07:00] LABS: Alkaline Phosphatase 238 U/L (46-116); Blood Urea Nitrogen 8 mg/dL (9-23); Potassium 3.4 mmol/L (3.5-5.1)
[2024-11-04 07:03] LABS: Alanine Aminotransferase 138 U/L (7-40); Bilirubin, Total 1.4 mg/dL (0.2-1.0); Magnesium 1.5 mg/dL (1.6-2.6)
[2024-11-04 08:00] LABS: Hematocrit 33.4 % (36.0-46.0); Hemoglobin 12.0 g/dL (12.2-16.2); Mean Corpuscular Hemoglobin 30.1 pg (28.0-32.0); Mean Corpuscular Volume 84.0 fL (80.0-100.0); Nucleated Red Blood Cells % 0.4 %
[2024-11-04] MEDS: PANTOPRAZOLE 40 MG/10 ML VIAL INJ IV SCH (10:39)
[2024-11-04] MEDS: ENOXAPARIN SOD 40 MG/0.4 ML SYRINGE SC SCH (10:40)
--- NOTE | 2024-11-04 11:58 | DVHINCON2 ---
Date of service: Nov 04, 2024 Family History: Chronic obstructive pulmonary disease G8 MOTHER, FH: cancer G8 SISTER Hypercholesterolemia G8 MOTHER, Hypertension G8 MOTHER, Ischemic heart disease G8 MOTHER, Allergies: Coded Allergies: NO KNOWN ALLERGIES (Unverified , 07/26/19) Home Meds Active Scripts Levothyroxine Sodium (Levothyroxine Sodium) 100 Mcg Tab, 1 TAB PO QAM for 14 Days, #14 TAB Prov:PERRY MIRELES 07/29/24 Pantoprazole Sodium Sesquihydr (Protonix) 40 Mg Tab, 40 MG PO DAILY for 30 Days, #30 TAB 1 Refill Prov:JULIO BLOUNT MD 07/29/24 Ondansetron Odt 4MG Tab (ZOFRAN PO) 4 Mg Tb, 4 MG PO TIDP PRN for 15 Days, #45 TAB ODT TAB-DISSOLVE IN MOUTH, THEN SWALLOW Prov:JULIO BLOUNT MD 07/29/24 Reported Medications Multiple Vitamin (Multivitamins) Tab, 1 TAB PO DAILY, #90 TAB 3 Refills 11/03/24 Rosuvastatin Calcium (Rosuvastatin Calcium) 20 Mg Tab, 1 TAB PO DAILY 07/19/24 Current Medications Current Medications Medications (Trade) Dose Ordered Sig/Nabeel Route PRN Reason Start Time Stop Time Status Last Admin Sodium Chloride (Saline Lock Ns) 10 ml Q8HR IV 11/03/24 22:00 11/04/24 10:41 Docusate Sodium (Colace Capsule) 100 mg BIDPRN PRN PO FOR CONSTIPATION 11/03/24 18:15 Acetaminophen (Tylenol Tablet) 650 mg Q6HP PRN PO PAIN SCALE 1-3 OR TEMP>100.4 11/03/24 18:15 Acetaminophen/ Hydrocodone Bitart ([place] 5/325MG Tab) 1 tab Q4HP PRN PO MODERATE PAIN (4-6 PAIN SCALE) 11/03/24 18:15 11/04/24 00:40 Hydromorphone HCl (Dilaudid Injection) 0.5 mg Q4HP PRN IV SEVERE PAIN (7-10 PAIN SCALE) 11/03/24 18:15 11/04/24 11:08 Ondansetron HCl (Zofran) 4 mg Q4HP PRN IV NAUSEA / VOMITING 11/03/24 18:15 Enoxaparin Sodium (Lovenox) 40 mg DAILY SC 11/04/24 10:00 11/04/24 10:40 Pantoprazole Sodium (Protonix) 40 mg DAILY IV 11/04/24 10:00 11/04/24 10:39 Ceftriaxone Sodium 50 ml @ 100 mls/hr DAILY IV 11/03/24 18:15 11/04/24 11:04 Vital Signs Vital Signs Date Time Temp Pulse Resp B/P (MAP) Pulse Ox O2 Delivery O2 Flow Rate FiO2 11/04/24 11:08 90 17 108/53 11/04/24 09:00 98.1 95 98.1 11/03/24 23:05 Room Air* 0 21 Labs/Diagnostic Data Labs Test 11/04/24 06:10 11/03/24 12:40 11/03/24 12:12 Range/Units White Blood Count 6.6 # 4.4-10.8 10^3/uL Red Blood Count 3.98 L 4.0-5.20 10^6/uL Hemoglobin 12.0 #L 12.2-16.2 g/dL Hematocrit 33.4 #L 36.0-46.0 % Mean Corpuscular Volume 84.0 80.0-100.0 fL Mean Corpuscular Hemoglobin 30.1 28.0-32.0 pg Mean Corpuscular Hemoglobin Concent 35.9 32.0-36.0 g/dL Red Cell Distribution Width 16.0 H 11.8-14.3 % Platelet Count 247 140-450 10^3/uL Mean Platelet Volume 8.7 6.9-10.8 fL Neutrophils (%) (Auto) 70.5 37.0-80.0 % Lymphocytes (%) (Auto) 16.1 10.0-50.0 % Monocytes (%) (Auto) 9.8 0.0-12.0 % Eosinophils (%) (Auto) 2.5 0.0-7.0 % Basophils (%) (Auto) 1.1 0.0-2.0 % Neutrophils # (Auto) 4.7 1.6-8.6 10 ^3/uL Lymphocytes # (Auto) 1.1 0.4-5.4 10 ^3/uL Monocytes # (Auto) 0.7 0-1.3 10 ^3/uL Eosinophils # (Auto) 0.2 0-0.8 10 ^3/uL Basophils # (Auto) 0.1 0-0.2 10 ^3/uL Nucleated Red Blood Cells 0.4 % Sodium Level 141 136-145 mmol/L Potassium Level 3.4 L 3.5-5.1 mmol/L Chloride Level 105 98-107 mmol/L Carbon Dioxide Level 27 20-31 mmol/L Anion Gap 9 5-15 Blood Urea Nitrogen 8 L 9-23 mg/dL Creatinine 0.61 0.550-1.02 mg/dL Glomerular Filtration Rate Calc 104 >90 mL/min BUN/Creatinine Ratio 13.1 10.0-20.0 Serum Glucose 81 74-106 mg/dL Calcium Level 9.1 8.7-10.4 mg/dL Magnesium Level 1.5 L 1.6-2.6 mg/dL Total Bilirubin 1.4 H 0.2-1.0 mg/dL Aspartate Amino Transferase (AST) 172 H 13-40 U/L Alanine Aminotransferase (ALT) 138 H 7-40 U/L Alkaline Phosphatase 238 H 46-116 U/L Total Protein 5.8 5.7-8.2 g/dL Albumin 3.8 3.2-4.8 g/dL Lipase 37 12-53 U/L Urine Color Yellow Yellow Urine Clarity Ex.turbid Clear Urine pH 6.0 5.0-9.0 Urine Specific [place] 1.030 1.001-1.035 Urine Protein 1+ H Negative Urine Ketones Negative Negative Urine Blood Negative Negative /uL Urine Nitrite Negative Negative Urine Bilirubin Negative Negative Urine Urobilinogen Normal Negative mg/dL Urine Leukocyte Esterase Negative Negative /uL Urine RBC 3 0 - 4 /hpf Urine Microscopic WBC 20 H 0-5 /HPF Urine Squamous Epithelial Cells Few <5 /hpf Urine Bacteria None seen None Seen /hpf Urine Hyaline Casts Few 0 - 2 /lpf Urine Mucus Few None Seen Urine Glucose Normal Normal mg/dL Assessment [id number] AFEBRILE VSS ABD SOFT NON DISTENDED NO BM NO FLATUS NEUROENDOCRINE TUMOR COMPLEX ABD SURGERY TRANSFER TO HIGHER LEVEL OF CARE PT AGREES WITH THE PLAN HAS SCHEDULED APPT AT [facility] CONTINUE CLOSE OBSERVATION KEEP NPO NG NURSE AT BEDSIDE Plan discussed with: Patient MOSES MCGOWAN MD Nov 04, 2024 11:58
--- NOTE | 2024-11-04 12:10 | DVH ---
Technique: Real-time ultrasound imaging of the abdomen was performed with grayscale and color Doppler . Indication: elevated liver tests Comparison: US GALLBLADDER on DOS: 01/04/24 Findings: Liver measures 17.3 cm. It is increased in echogenicity and coarse echotexture . Echogenic lesion i n the left hepatic lobe measuring 1.9 cm. Echogenic lesion in the right hepatic lobe measuring 1.1 c m.. Portal vein is normal in caliber and demonstrates normal hepatopetal flow. Gallbladder demonstrates cholelithiasis. There is no pericholecystic fluid. The wall thickness is 5 m m. The common bile duct measures 6 mm. No intrahepatic biliary ductal dilatation. The right kidney measures 9.9 cm. There is no hydronephrosis or sonographic evidence of nephrolithias is. The visualized portion of the pancreas is unremarkable. The visualized portion of the IVC is unremarkable. Impression: Cholelithiasis. Gallbladder wall thickening. Recommend HIDA scan to evaluate for cholecystitis. Echogenic liver which can be seen with hepatic steatosis, cirrhosis. 2 echogenic masses within the liver measuring up to 1.9 cm. Recommend multiphasic MRI abdomen with a nd without contrast to evaluate for malignancy/metastatic disease especially given the history of mes enteric mass/ neoplasm Hepatomegaly.
--- NOTE | 2024-11-04 14:01 | DVHINCON2 ---
GI Consult Consult Note GI consult note Date of Consultation: 11/04/2024 Chief Complaint: SBO eval Referring Physician: Dr. Chichi Rae H&P: 59-year-old female admitted with complains of abdominal pain. Patient is complaining of severe abdominal pain for the past one year. Recent hospitalization in July for possible ruptured viscus status post abdominal surgery. History of neuroendocrine cancer. Patient is being seen at [facility] and is scheduled for a CT scan PET scan and lab test on Friday. Patient pain worsened in the last few days which prompted her to come to the hospital. No nausea or vomiting. Last bowel movement four days ago, mostly bile with undigested food. Patient has weight loss of 30 lb since July 2024. No colonoscopy in past. Patient has history of gallstones Past Medical History: Cancer (Neuroendocrine tumor), Gallstones, High Lipids, Thyroid Past Surgical History: Abdominal surgery, right ankle surgery, breast augmentation Social History: NO smoking, drinking ETOH and use of illegal drugs. Family History: Noncontributory Review of Systems: Constitutional: no fever, chill, weight loss HEENT: no eye pain, no hearing loss, no oral lesion, no scleral icterus Heart: no chest pain, no chest pressure Lung: no cough, no dyspnea with exertion Abdomen: see HPI Physical exam: General: NAD, AAOX3 Chest: lung yepez clear to auscultation Heart: RRR, no murmur Abdomen: non-distended,+tenderness to palpation, +BS, healed surgical scar Labs:Labs Test 11/04/24 06:10 11/03/24 12:40 11/03/24 12:12 Range/Units White Blood Count 6.6 # 4.4-10.8 10^3/uL Red Blood Count 3.98 L 4.0-5.20 10^6/uL Hemoglobin 12.0 #L 12.2-16.2 g/dL Hematocrit 33.4 #L 36.0-46.0 % Mean Corpuscular Volume 84.0 80.0-100.0 fL Mean Corpuscular Hemoglobin 30.1 28.0-32.0 pg Mean Corpuscular Hemoglobin Concent 35.9 32.0-36.0 g/dL Red Cell Distribution Width 16.0 H 11.8-14.3 % Platelet Count 247 140-450 10^3/uL Mean Platelet Volume 8.7 6.9-10.8 fL Neutrophils (%) (Auto) 70.5 37.0-80.0 % Lymphocytes (%) (Auto) 16.1 10.0-50.0 % Monocytes (%) (Auto) 9.8 0.0-12.0 % Eosinophils (%) (Auto) 2.5 0.0-7.0 % Basophils (%) (Auto) 1.1 0.0-2.0 % Neutrophils # (Auto) 4.7 1.6-8.6 10 ^3/uL Lymphocytes # (Auto) 1.1 0.4-5.4 10 ^3/uL Monocytes # (Auto) 0.7 0-1.3 10 ^3/uL Eosinophils # (Auto) 0.2 0-0.8 10 ^3/uL Basophils # (Auto) 0.1 0-0.2 10 ^3/uL Nucleated Red Blood Cells 0.4 % Sodium Level 141 136-145 mmol/L Potassium Level 3.4 L 3.5-5.1 mmol/L Chloride Level 105 98-107 mmol/L Carbon Dioxide Level 27 20-31 mmol/L Anion Gap 9 5-15 Blood Urea Nitrogen 8 L 9-23 mg/dL Creatinine 0.61 0.550-1.02 mg/dL Glomerular Filtration Rate Calc 104 >90 mL/min BUN/Creatinine Ratio 13.1 10.0-20.0 Serum Glucose 81 74-106 mg/dL Calcium Level 9.1 8.7-10.4 mg/dL Magnesium Level 1.5 L 1.6-2.6 mg/dL Total Bilirubin 1.4 H 0.2-1.0 mg/dL Aspartate Amino Transferase (AST) 172 H 13-40 U/L Alanine Aminotransferase (ALT) 138 H 7-40 U/L Alkaline Phosphatase 238 H 46-116 U/L Total Protein 5.8 5.7-8.2 g/dL Albumin 3.8 3.2-4.8 g/dL Lipase 37 12-53 U/L Urine Color Yellow Yellow Urine Clarity Ex.turbid Clear Urine pH 6.0 5.0-9.0 Urine Specific [place] 1.030 1.001-1.035 Urine Protein 1+ H Negative Urine Ketones Negative Negative Urine Blood Negative Negative /uL Urine Nitrite Negative Negative Urine Bilirubin Negative Negative Urine Urobilinogen Normal Negative mg/dL Urine Leukocyte Esterase Negative Negative /uL Urine RBC 3 0 - 4 /hpf Urine Microscopic WBC 20 H 0-5 /HPF Urine Squamous Epithelial Cells Few <5 /hpf Urine Bacteria None seen None Seen /hpf Urine Hyaline Casts Few 0 - 2 /lpf Urine Mucus Few None Seen Urine Glucose Normal Normal mg/dL Imaging: CT abdomen pelvis IMPRESSION: Limited evaluation without contrast. Interval postsurgical changes in the right at the site of the previously seen mesenteric lesion. There is residual soft tissue density / mass with spiculation in this region measuring 1.6 cm, previously 3.4 cm. Further evaluation with gallium 68 PET scan / DOTATATE recommended to evaluate disease progression. Extensive bowel wall distention of the ascending, transverse and descending colon with luminal narrowing of the sigmoid colon, concerning for obstruction. Associated bowel wall thickening. Recommend GI, surgical consultation to evaluate for potential obstructive etiology. Mesenteric haziness / stranding and nodularity most pronounced in the lower abdomen / pelvis, likely representing carcinomatosis / peritoneal implants. 5 mm left lower lobe soft tissue nodule, slightly more pronounced than on previous examination. Abdominal ultrasound Impression: Cholelithiasis. Gallbladder wall thickening. Recommend HIDA scan to evaluate for cholecystitis. Echogenic liver which can be seen with hepatic steatosis, cirrhosis. 2 echogenic masses within the liver measuring up to 1.9 cm. Recommend multiphasic MRI abdomen with and without contrast to evaluate for ma lignancy/metastatic disease especially given the history of mesenteric mass/ neoplasm Hepatomegaly. Assessment: Large bowel obstruction Carcinomatosis Neuroendocrine tumor Cholelithiasis Hepatic steatosis Elevated total bilirubin Plan: Discussed with Dr. Rae Npo NGT to LIS IV fluid Recommend IV Clinimix Transferred to higher level of care patient and family agrees with the plan Plan discussed with patient, family at bedside and RN Thank you for this consult Date of Service: Nov 04, 2024 Billing Provider: KERRY GUTIÉRREZ Common Visit Codes: CONSULT ONLY Consultation Codes: [id number] CONSULT <60MIN KERRY GUTIÉRREZ Nov 04, 2024 14:01
--- NOTE | 2024-11-04 14:55 | DVHPN2 ---
Subjective 59 year old female with h/o carcinomatosis, bowel surgery in July 2024 comes for abd pain and distention x 4 days She has large bowel obstruction Changes from previous H/P or p: Changes Objective Vitals Vital Signs Date Time Temp Pulse Resp B/P (MAP) Pulse Ox O2 Delivery O2 Flow Rate FiO2 11/04/24 13:00 98.0 66 17 117/61 (79) 95 98.0 11/03/24 23:05 Room Air* 0 21 Intake/Output Intake and Output 11/04/24 07:00 Intake Total 0 ml Output Total 250 ml Balance -250 ml Intake Oral 0 ml Output Gastric Drainage Total 250 ml # Voids 1 General Appearance: Alert, Oriented X3, Cooperative, No acute distress Lungs: Clear to auscultation, Normal air movement Abdomen: Normal bowel sounds, Soft, No tenderness Extremities: No edema Medications Current Medications Medications Dose Ordered Sig/Nabeel Route Start Time Stop Time Status Last Admin Dose Admin Sodium Chloride 10 ml Q8HR IV 11/03/24 22:00 11/04/24 10:41 10 ML Docusate Sodium 100 mg BIDPRN PRN PO 11/03/24 18:15 Acetaminophen 650 mg Q6HP PRN PO 11/03/24 18:15 Acetaminophen/ Hydrocodone Bitart 1 tab Q4HP PRN PO 11/03/24 18:15 11/04/24 00:40 1 TAB Hydromorphone HCl 0.5 mg Q4HP PRN IV 11/03/24 18:15 11/04/24 11:08 0.5 MG Ondansetron HCl 4 mg Q4HP PRN IV 11/03/24 18:15 Enoxaparin Sodium 40 mg DAILY SC 11/04/24 10:00 11/04/24 10:40 40 MG Pantoprazole Sodium 40 mg DAILY IV 11/04/24 10:00 11/04/24 10:39 40 MG Ceftriaxone Sodium 50 ml @ 100 mls/hr DAILY IV 11/03/24 18:15 11/04/24 11:04 100 MLS/HR Laboratory Results Laboratory Tests 11/04/24 06:10 Chemistry Test 11/04/24 06:10 Albumin 3.8 g/dL (3.2-4.8) Calcium Level 9.1 mg/dL (8.7-10.4) Magnesium Level 1.5 mg/dL (1.6-2.6) L Total Protein 5.8 g/dL (5.7-8.2) LFT Test 11/04/24 06:10 Alanine Aminotransferase (ALT) 138 U/L (7-40) H Alkaline Phosphatase 238 U/L (46-116) H Aspartate Amino Transferase (AST) 172 U/L (13-40) H Total Bilirubin 1.4 mg/dL (0.2-1.0) H Urinalysis Test 11/03/24 12:12 Urine Color Yellow (Yellow) Urine Clarity Ex.turbid (Clear) Urine pH 6.0 (5.0-9.0) Urine Specific [place] 1.030 (1.001-1.035) Urine Protein 1+ (Negative) H Urine Ketones Negative (Negative) Urine Blood Negative /uL (Negative) Urine Nitrite Negative (Negative) Urine Bilirubin Negative (Negative) Urine Urobilinogen Normal mg/dL (Negative) Urine Leukocyte Esterase Negative /uL (Negative) Urine RBC 3 /hpf (0 - 4) Urine Microscopic WBC 20 /HPF (0-5) H Urine Squamous Epithelial Cells Few /hpf (<5) Urine Bacteria None seen /hpf (None Seen) Urine Hyaline Casts Few /lpf (0 - 2) Urine Mucus Few (None Seen) Urine Glucose Normal mg/dL (Normal) Microbiology Microbiology Date/Time Source Procedure Growth Status 11/03/24 12:12 Voided Urine Urine Culture - Preliminary Resulted Assessment/Plan Assessment/Plan Large bowel obstruction 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 She was seen at [facility] recently Hypokalemia PLAN: IV fluids NPO NG tube suction Clinimix Surgical consult: recommended [facility] GI consult TPN Full code Advanced directives discussed x 16 minutes Plan of care discussed with patient and her daughter at the bedside Transfer to [facility] Plan discussed with: Patient Date of Service: Nov 04, 2024 Billing Provider: RAISA COBURN MD Common Visit Codes: [id number] INP/OBS CARE(HIGH) Secondary Visit Codes: [id number] CARE PLAN 30 MINUTES RAISA COBURN MD Nov 04, 2024 14:55
[2024-11-04] MEDS ORDERED: CLINIMIX PER PHARMACY 0 ML IV SCH (15:00)
--- NOTE | 2024-11-04 19:41 | DVHINCON2 ---
DATE OF CONSULTATION: 11/04/2024 HISTORY OF PRESENT ILLNESS: This 59 years old, coming with abdominal pain, now feeling better. No nausea or vomiting. She has not had a bowel activity today or yesterday. No passing of flatus. No hematemesis or melena. No bleeding per rectum. PAST MEDICAL HISTORY: Significant for neuroendocrine tumor, very complicated issues; history of gallstones and thyroid issues; and abdominal surgery, was complicated surgery where she had small-bowel obstruction and perforation and resection was done for that and she recovered from that and now comes back with abdominal pain. She also has an appointment at [facility] for followup and at this point, her abdominal pain is much less. PHYSICAL EXAMINATION: VITAL SIGNS: She is afebrile. Stable signs. HEENT: No evidence of pallor, cyanosis, or jaundice. NECK: Supple, nontender with no thyromegaly or lymphadenopathy. CHEST AND LUNGS: Clear. HEART: Within normal limits. ABDOMEN: Soft, minimally tender, nondistended. No rebound. NG tube was in place, not draining much. EXTREMITIES: Unremarkable. NEUROLOGIC: Intact. PLAN: To keep her in a close observation, keep her n.p.o., monitor the NG tube drainage and if need be, obtain Gastrografin study, small bowel followthrough to determine the need for surgery. In the meantime, also she needs to be transferred to a high level of care as she already has an appointment with [facility] followup. She understands the plan and the nurses at the bedside, so the plan would be to start the process of transfer and in the meantime, continue close observation. MD TRI Wall/MAURICIO/NOMI TID: [id number] RECEIPT: [id number] cc: Basim Shea
[2024-11-04] MEDS: POTASSIUM CHL 20MEQ/100ML 100 ML IV ONE (20:24)
[2024-11-04] MEDS ORDERED: DEXTROSE (50%) 50ML SYRG IV SCH (22:00)
[2024-11-04] MEDS: AMINO ACID INFUSION IN D10W 1,000 ML IV SCH (22:48)
[2024-11-04] MEDS: ACCU-CHEK COMFORT CURVE STRIP VI SCH (23:03)
[2024-11-05] VITALS (8 sets, daily range): BP systolic 106–137; BP diastolic 49–75; PULSE 62–70; RESP 16–17; TEMP 97.1–98.4; O2SAT 93–94
[2024-11-05] MEDS: InsuLIN REG 1unit/0.01ml Soln (100units/ml) SC SCH
[2024-11-05] MEDS: ONDANSETRON HCL 4 MG/2 ML VIAL IV PRN (04:57)
[2024-11-05 06:28] LABS: Mean Corpuscular Volume 83.4 fL (80.0-100.0); Nucleated Red Blood Cells % 0.0 %
[2024-11-05 06:32] LABS: Hematocrit 33.1 % (36.0-46.0); Hemoglobin 12.2 g/dL (12.2-16.2); Mean Corpuscular Hemoglobin 30.7 pg (28.0-32.0)
[2024-11-05 06:54] LABS: Alanine Aminotransferase 82 U/L (7-40); Albumin 4.1 g/dL (3.2-4.8); Alkaline Phosphatase 195 U/L (46-116); Anion Gap 10 (5-15); BUN/Creatinine Ratio 14.5 (10.0-20.0); Bilirubin, Total 0.9 mg/dL (0.2-1.0); Blood Urea Nitrogen 9 mg/dL (9-23); Calcium 9.3 mg/dL (8.7-10.4); Carbon Dioxide 28 mmol/L (20-31); Chloride 104 mmol/L (98-107); Glucose 81 mg/dL (74-106); Magnesium 1.5 mg/dL (1.6-2.6); Potassium 3.2 mmol/L (3.5-5.1); Sodium 142 mmol/L (136-145); Total Protein 6.4 g/dL (5.7-8.2)
[2024-11-05 09:05] LABS: INR 1.03 (0.9-1.15); Partial Thromboplastin Time 31.2 SEC (24.5-34.5); Prothrombin Time 10.9 sec (9.3-11.8)
[2024-11-05] MEDS ORDERED: POTASSIUM CHL 20MEQ/100ML 100 ML IV ONE (10:30)
--- NOTE | 2024-11-05 11:17 | DVHDS2 ---
Discharge Summary Date of Admission Nov 03, 2024 at 18:02 Date of Discharge: Nov 05, 2024 Labs/Diagnostic Data: Laboratory Results Test 11/05/24 05:55 11/05/24 04:58 11/03/24 12:40 11/03/24 12:12 White Blood Count 7.2 10^3/uL (4.4-10.8) Red Blood Count 3.96 10^6/uL (4.0-5.20) Hemoglobin 12.2 g/dL (12.2-16.2) Hematocrit 33.1 % (36.0-46.0) Mean Corpuscular Volume 83.4 fL (80.0-100.0) Mean Corpuscular Hemoglobin 30.7 pg (28.0-32.0) Mean Corpuscular Hemoglobin Concent 36.8 g/dL (32.0-36.0) Red Cell Distribution Width 16.2 % (11.8-14.3) Platelet Count 248 10^3/uL (140-450) Mean Platelet Volume 8.7 fL (6.9-10.8) Neutrophils (%) (Auto) 71.9 % (37.0-80.0) Lymphocytes (%) (Auto) 15.5 % (10.0-50.0) Monocytes (%) (Auto) 9.3 % (0.0-12.0) Eosinophils (%) (Auto) 2.1 % (0.0-7.0) Basophils (%) (Auto) 1.2 % (0.0-2.0) Neutrophils # (Auto) 5.2 10 ^3/uL (1.6-8.6) Lymphocytes # (Auto) 1.1 10 ^3/uL (0.4-5.4) Monocytes # (Auto) 0.7 10 ^3/uL (0-1.3) Eosinophils # (Auto) 0.1 10 ^3/uL (0-0.8) Basophils # (Auto) 0.1 10 ^3/uL (0-0.2) Nucleated Red Blood Cells 0.0 % Prothrombin Time 10.9 sec (9.3-11.8) Prothrombin Time INR 1.03 (0.9-1.15) Activated Partial Thromboplast Time 31.2 SEC (24.5-34.5) Sodium Level 142 mmol/L (136-145) Potassium Level 3.2 mmol/L (3.5-5.1) Chloride Level 104 mmol/L (98-107) Carbon Dioxide Level 28 mmol/L (20-31) Anion Gap 10 (5-15) Blood Urea Nitrogen 9 mg/dL (9-23) Creatinine 0.62 mg/dL (0.550-1.02) Glomerular Filtration Rate Calc 104 mL/min (>90) BUN/Creatinine Ratio 14.5 (10.0-20.0) Serum Glucose 81 mg/dL (74-106) Calcium Level 9.3 mg/dL (8.7-10.4) Phosphorus Level 3.3 mg/dL (2.4-5.1) Magnesium Level 1.5 mg/dL (1.6-2.6) Total Bilirubin 0.9 mg/dL (0.2-1.0) Aspartate Amino Transferase (AST) 51 U/L (13-40) Alanine Aminotransferase (ALT) 82 U/L (7-40) Alkaline Phosphatase 195 U/L (46-116) Total Protein 6.4 g/dL (5.7-8.2) Albumin 4.1 g/dL (3.2-4.8) Triglycerides Level 147 mg/dL (< 150) POC Glucose 90 mg/dl (70-106) Lipase 37 U/L (12-53) Urine Color Yellow (Yellow) Urine Clarity Ex.turbid (Clear) Urine pH 6.0 (5.0-9.0) Urine Specific [place] 1.030 (1.001-1.035) Urine Protein 1+ (Negative) Urine Ketones Negative (Negative) Urine Blood Negative /uL (Negative) Urine Nitrite Negative (Negative) Urine Bilirubin Negative (Negative) Urine Urobilinogen Normal mg/dL (Negative) Urine Leukocyte Esterase Negative /uL (Negative) Urine RBC 3 /hpf (0 - 4) Urine Microscopic WBC 20 /HPF (0-5) Urine Squamous Epithelial Cells Few /hpf (<5) Urine Bacteria None seen /hpf (None Seen) Urine Hyaline Casts Few /lpf (0 - 2) Urine Mucus Few (None Seen) Urine Glucose Normal mg/dL (Normal) Other Laboratory Tests 11/05/24 05:55 Brief Hx & Hospital Course: Discharge diagnosis: Large bowel obstruction 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 She was seen at [facility] recently Hypokalemia 59 year old female was admitted for abdominal pain and distention She has significant h/o for neuroendocrine tumor, history of gallstones and thyroid issues; and abdominal surgery, was complicated surgery where she had small-bowel obstruction and perforation and resection was done for that and she recovered from that and now comes back with abdominal pain. She also has an appointment at [facility] for followup and at this point, We kept her NPO, IV fluids, IV nutrition, NG tube Surgical consult recommended [facility] Transfer once a bed is available Condition at Discharge: Stable Final Diagnosis/Problems List Large bowel obstruction dut to neuroendocrine tumore Abdominal carcinomatosis Discharge Disposition: Acute Care Facility SNF Discharge Will this Physician continue t: No Discharge Instruct/Medications Diet: See Comment Diet comment: NPO Activity: No Restrictions, As Tolerated Follow Up/Referral: [facility] facility Medications: See Med Rec Scheduled Levothyroxine Sodium (Levothyroxine Sodium), 1 TAB PO QAM Multiple Vitamin (Multivitamins), 1 TAB PO DAILY, (Reported) Pantoprazole Sodium Sesquihydr (Protonix), 40 MG PO DAILY Rosuvastatin Calcium (Rosuvastatin Calcium), 1 TAB PO DAILY, (Reported) Scheduled PRN Ondansetron Odt 4MG Tab (Zofran Po), 4 MG PO TIDP PRN Discharge Statement: "Patient was advised to return to the ER or call 911 if any headaches, dizziness, shortness of breath, chest pain, abdominal pain, bleeding, fevers, or worsening of medical condition. Patient was counseled about treatment plan, medications, possible side effects, patientverbalized understanding. All questions were answered to the best of my ability. This discharge took greater then 30 minutes in planning, reviewing documentation, counseling the patient, and discussing with other team members." ASSESSMENT ASSESSMENT Assessment Large bowel obstruction dut to neuroendocrine tumore Abdominal carcinomatosis Date of Service: Nov 05, 2024 Billing Provider: RAISA COBURN MD Common Visit Codes: [id number] INP/OBS CARE(HIGH) RAISA COBURN MD Nov 05, 2024 11:17
[2024-11-05] MEDS: LEVOTHYROXINE SODIUM 100 MCG/5 ML INJ IV ONE (13:34)
[2024-11-05] MEDS: MAGNESIUM SULFATE 1GM/100ML 100 ML IV SCH (13:34)
--- NOTE | 2024-11-05 16:48 | DVHPN2 ---
Progress Note - Dictate Date Seen: Nov 05, 2024 Medical Necessity Reason Pt with a Central, PICC or Fol: No Subjective No new complaints NG tube output is minimal Abdomen is less distended Patient wants all the tumors removed for her abdomen vital signs Vital Sign Date Time Temp Pulse Resp B/P (MAP) Pulse Ox O2 Delivery O2 Flow Rate FiO2 11/05/24 15:50 62 18 114/75 11/05/24 13:00 98.0 94 98.0 11/05/24 08:00 Room Air* 0 21 Total Intake and Output 11/04/24 11/04/24 11/05/24 15:00 23:00 07:00 Intake Total 100 ml 320 ml Output Total 125 ml Balance 100 ml 195 ml medications Current Medications Medications Dose Ordered Sig/Nabeel Route Start Time Stop Time Status Last Admin Dose Admin Sodium Chloride 10 ml Q8HR IV 11/03/24 22:00 11/05/24 13:41 10 ML Docusate Sodium 100 mg BIDPRN PRN PO 11/03/24 18:15 Acetaminophen 650 mg Q6HP PRN PO 11/03/24 18:15 Acetaminophen/ Hydrocodone Bitart 1 tab Q4HP PRN PO 11/03/24 18:15 11/04/24 00:40 1 TAB Hydromorphone HCl 0.5 mg Q4HP PRN IV 11/03/24 18:15 11/05/24 15:50 0.5 MG Ondansetron HCl 4 mg Q4HP PRN IV 11/03/24 18:15 11/05/24 04:57 4 MG Enoxaparin Sodium 40 mg DAILY SC 11/04/24 10:00 11/05/24 10:13 40 MG Pantoprazole Sodium 40 mg DAILY IV 11/04/24 10:00 11/05/24 10:17 40 MG Ceftriaxone Sodium 50 ml @ 100 mls/hr DAILY IV 11/03/24 18:15 11/05/24 10:13 100 MLS/HR Amino Acids 0 ml @ 0 mls/hr PER PHARMACY IV 11/04/24 15:00 Amino Acids/ Electrolytes/ Dextrose 1,000 ml @ 41 mls/hr DAILY@2200 IV 11/04/24 22:00 11/04/24 22:48 41 MLS/HR Diagnostic Test (Pha) 1 strip Q6HR 11/04/24 22:00 11/05/24 12:23 1 STRIP Insulin Human Regular FOLLOW SLIDING SCALE Q6HR SC 11/05/24 00:00 Dextrose 50 ml UD IV 11/04/24 22:00 Levothyroxine Sodium 50 mcg DAILY IV 11/06/24 10:00 objective General Appearance: Alert, Oriented X3, Cooperative, No acute distress Lungs: Clear to auscultation, Normal air movement Abdomen: Normal bowel sounds, Soft, No tenderness; well-healed midline scar Extremities: No edema laboratory and microbiology Laboratory Tests 11/05/24 05:55 Test 11/05/24 05:55 Range/Units Serum Glucose 81 74-106 mg/dL Problems(with codes): (1) Large bowel obstruction (2) Intractable abdominal pain (3) Small bowel obstruction (4) Abdominal pain Prognosis Plan Surgical consult is following NG tube to low intermittent suction Gastrografin small-bowel series has been ordered Patient has requested referral to higher level of care and is pending transfer to [facility] Once again thank you for allowing me to participate in the care of this patient Dietary Evaluation Review Comments: Prevent catabolism and muscle wasting TPN per pharmacy meeting 100% of her needs consider TF if blowel obstruction is resolved Reassess PRN Expected Outcomes/Goals: gradual wt gain Plan discussed with: Patient, Other (Dr Chichi Rae) BALA RAE MD Nov 05, 2024 16:48
[2024-11-05] MEDS: POTASSIUM CHLORIDE 20 MEQ, LIDOCAINE 1% (LOCAL ANESTH.) 2 ML in SODIUM CHL 0.9% 100 ML IV ONE (18:51)
--- NOTE | 2024-11-05 19:30 | DVH ---
SMALL BOWEL FOLLOW-THROUGH REASON FOR EXAMINATION: Abdominal pain. Rule out bowel obstruction. CONTRAST: 180 cc Gastrografin by NG tube FLUOROSCOPY TIME: None. IMAGES: 7 images of the abdomen are submitted. FINDINGS: The blender operator film demonstrates a nonobstructive bowel gas pattern. There is small to moderate gas distending the colon. Contrast was administered by NG tube and serial films were obtained. The st omach was of normal size, position, and contour, without intrinsic or extrinsic mass lesions or mucos al abnormalities. The duodenal bulb and sweep were normal as visualized. There was normal transit maryana e through to the terminal ileum. No filling defects were present. The small bowel is of normal-calibe r. Contrast reaches the ascending colon by 1 hour from the time of administration. At 2:00 a.m. post administration, the majority of the contrast resides in the colon and is seen as far as the sigmoid. IMPRESSION: No evidence of small-bowel obstruction. Small to moderate colonic gas.
[2024-11-05] MEDS: POTASSIUM CHL 20MEQ/100ML 100 ML IV ONE (21:34)
[2024-11-06] VITALS (7 sets, daily range): BP systolic 108–135; BP diastolic 58–81; PULSE 61–70; RESP 16–18; TEMP 97.2–98.4; O2SAT 93–100
[2024-11-06 06:23] LABS: Albumin 4.0 g/dL (3.2-4.8); Anion Gap 9 (5-15); BUN/Creatinine Ratio 14.5 (10.0-20.0); Carbon Dioxide 30 mmol/L (20-31); Chloride 104 mmol/L (98-107); Glucose 102 mg/dL (74-106); Magnesium 2.0 mg/dL (1.6-2.6); Sodium 143 mmol/L (136-145); Total Protein 6.4 g/dL (5.7-8.2)
[2024-11-06 06:24] LABS: Bilirubin, Total 0.5 mg/dL (0.2-1.0)
[2024-11-06 06:26] LABS: Alkaline Phosphatase 161 U/L (46-116); Blood Urea Nitrogen 8 mg/dL (9-23); Potassium 3.2 mmol/L (3.5-5.1)
[2024-11-06 06:27] LABS: Alanine Aminotransferase 56 U/L (7-40); Calcium 8.6 mg/dL (8.7-10.4)
[2024-11-06 06:39] LABS: Hematocrit 32.8 % (36.0-46.0); Hemoglobin 11.9 g/dL (12.2-16.2); Mean Corpuscular Hemoglobin 30.3 pg (28.0-32.0); Mean Corpuscular Volume 83.8 fL (80.0-100.0); Nucleated Red Blood Cells % 0.1 %
[2024-11-06] MEDS: POTASSIUM CHL 20MEQ/100ML 100 ML IV ONE (09:30)
--- NOTE | 2024-11-06 10:39 | DVHPN2 ---
Subjective Still complaining of abdominal distention and some nausea Potassium is low at 3.2 We are still waiting for transfer to higher level of care Changes from previous H/P or p: Changes Objective Vitals Vital Signs Date Time Temp Pulse Resp B/P (MAP) Pulse Ox O2 Delivery O2 Flow Rate FiO2 11/06/24 09:00 97.5 64 18 135/81 (99) 97 97.5 11/05/24 20:00 Room Air* 0 21 Intake/Output Intake and Output 11/06/24 07:00 Intake Total 100 ml Output Total 10 ml Balance 90 ml Intake Oral 0 ml IV Total 100 ml Output Gastric Drainage Total 10 ml # Voids 4 # Bowel Movements 1 General Appearance: Alert, Oriented X3, Cooperative, No acute distress Lungs: Clear to auscultation, Normal air movement Abdomen: Normal bowel sounds, Soft, No tenderness Extremities: No edema Medications Current Medications Medications Dose Ordered Sig/Nabeel Route Start Time Stop Time Status Last Admin Dose Admin Sodium Chloride 10 ml Q8HR IV 11/03/24 22:00 11/06/24 06:55 10 ML Docusate Sodium 100 mg BIDPRN PRN PO 11/03/24 18:15 Acetaminophen 650 mg Q6HP PRN PO 11/03/24 18:15 Acetaminophen/ Hydrocodone Bitart 1 tab Q4HP PRN PO 11/03/24 18:15 11/04/24 00:40 1 TAB Hydromorphone HCl 0.5 mg Q4HP PRN IV 11/03/24 18:15 11/06/24 06:49 0.5 MG Ondansetron HCl 4 mg Q4HP PRN IV 11/03/24 18:15 11/06/24 06:49 4 MG Enoxaparin Sodium 40 mg DAILY SC 11/04/24 10:00 11/05/24 10:13 40 MG Pantoprazole Sodium 40 mg DAILY IV 11/04/24 10:00 11/05/24 10:17 40 MG Ceftriaxone Sodium 50 ml @ 100 mls/hr DAILY IV 11/03/24 18:15 11/05/24 10:13 100 MLS/HR Amino Acids 0 ml @ 0 mls/hr PER PHARMACY IV 11/04/24 15:00 Amino Acids/ Electrolytes/ Dextrose 1,000 ml @ 41 mls/hr DAILY@2200 IV 11/04/24 22:00 11/05/24 21:34 41 MLS/HR Diagnostic Test (Pha) 1 strip Q6HR 11/04/24 22:00 11/06/24 06:50 1 STRIP Insulin Human Regular FOLLOW SLIDING SCALE Q6HR SC 11/05/24 00:00 Dextrose 50 ml UD IV 11/04/24 22:00 Levothyroxine Sodium 50 mcg DAILY IV 11/06/24 10:00 Laboratory Results Laboratory Tests 11/06/24 04:26 Chemistry Test 11/06/24 04:26 Albumin 4.0 g/dL (3.2-4.8) Calcium Level 8.6 mg/dL (8.7-10.4) L Magnesium Level 2.0 mg/dL (1.6-2.6) Phosphorus Level 2.9 mg/dL (2.4-5.1) Total Protein 6.4 g/dL (5.7-8.2) LFT Test 11/06/24 04:26 Alanine Aminotransferase (ALT) 56 U/L (7-40) H Alkaline Phosphatase 161 U/L (46-116) H Aspartate Amino Transferase (AST) 21 U/L (13-40) Total Bilirubin 0.5 mg/dL (0.2-1.0) Urinalysis Test 11/03/24 12:12 Urine Color Yellow (Yellow) Urine Clarity Ex.turbid (Clear) Urine pH 6.0 (5.0-9.0) Urine Specific [place] 1.030 (1.001-1.035) Urine Protein 1+ (Negative) H Urine Ketones Negative (Negative) Urine Blood Negative /uL (Negative) Urine Nitrite Negative (Negative) Urine Bilirubin Negative (Negative) Urine Urobilinogen Normal mg/dL (Negative) Urine Leukocyte Esterase Negative /uL (Negative) Urine RBC 3 /hpf (0 - 4) Urine Microscopic WBC 20 /HPF (0-5) H Urine Squamous Epithelial Cells Few /hpf (<5) Urine Bacteria None seen /hpf (None Seen) Urine Hyaline Casts Few /lpf (0 - 2) Urine Mucus Few (None Seen) Urine Glucose Normal mg/dL (Normal) Microbiology Microbiology Date/Time Source Procedure Growth Status 11/03/24 12:12 Voided Urine Urine Culture - Preliminary Resulted Assessment/Plan Assessment/Plan Large bowel obstruction 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 She was seen at [facility] recently Hypokalemia PLAN: IV fluids NPO NG tube suction [facility] Surgical consult: recommended [facility] GI consult TPN Full code Advanced directives discussed x 16 minutes Plan of care discussed with patient and her daughter at the bedside Transfer to [facility] 11/06/2024: Continue NPO NG tube suction IV fluids [facility] Surgery and GI are following Transfer the patient to higher level of care once a bed is available Replace potassium IV Telemetry Plan discussed with: Patient My Orders Orders - RAISA COBURN MD Procedure Category Date Status Time Discharge DISCHARGE 11/05/24 Transmitted 11:08 [facility] Per Pharmacy KAREN 11/05/24 In Process 22:00 Potassium Chl PHA 11/06/24 In Process 20meq/100ml 09:30 Transfer Orders XFER 11/06/24 Transmitted 09:40 Date of Service: Nov 06, 2024 Billing Provider: RAISA COBURN MD Common Visit Codes: [id number] INP/OBS CARE(HIGH) RAISA COBURN MD Nov 06, 2024 10:39
[2024-11-06] MEDS: LEVOTHYROXINE SODIUM 100 MCG/5 ML INJ IV SCH (11:29)
--- NOTE | 2024-11-06 12:36 | DVHPN2 ---
Progress Note - Dictate Date Seen: Nov 06, 2024 Medical Necessity Reason Pt with a Central, PICC or Fol: No Subjective No new complaints NG tube output is minimal Abdomen is less distended Patient wants all the tumors removed for her abdomen Still complaining of abdominal distention and some nausea Potassium is low at 3.2 One bowel movement recorded SBFT Series IMPRESSION: No evidence of small-bowel obstruction. Small to moderate colonic gas. vital signs Vital Sign Date Time Temp Pulse Resp B/P (MAP) Pulse Ox O2 Delivery O2 Flow Rate FiO2 11/06/24 12:10 61 18 120/64 11/06/24 09:00 97.5 97 97.5 11/06/24 08:00 Room Air* 0 21 Total Intake and Output 11/05/24 11/05/24 11/06/24 15:00 23:00 07:00 Intake Total 0 ml 100 ml Output Total 10 ml Balance 0 ml 90 ml medications Current Medications Medications Dose Ordered Sig/Nabeel Route Start Time Stop Time Status Last Admin Dose Admin Sodium Chloride 10 ml Q8HR IV 11/03/24 22:00 11/06/24 06:55 10 ML Docusate Sodium 100 mg BIDPRN PRN PO 11/03/24 18:15 Acetaminophen 650 mg Q6HP PRN PO 11/03/24 18:15 Acetaminophen/ Hydrocodone Bitart 1 tab Q4HP PRN PO 11/03/24 18:15 11/04/24 00:40 1 TAB Hydromorphone HCl 0.5 mg Q4HP PRN IV 11/03/24 18:15 11/06/24 12:10 0.5 MG Ondansetron HCl 4 mg Q4HP PRN IV 11/03/24 18:15 11/06/24 12:10 4 MG Enoxaparin Sodium 40 mg DAILY SC 11/04/24 10:00 11/06/24 11:30 40 MG Pantoprazole Sodium 40 mg DAILY IV 11/04/24 10:00 11/06/24 11:30 40 MG Ceftriaxone Sodium 50 ml @ 100 mls/hr DAILY IV 11/03/24 18:15 11/06/24 11:29 100 MLS/HR Amino Acids 0 ml @ 0 mls/hr PER PHARMACY IV 11/04/24 15:00 Amino Acids/ Electrolytes/ Dextrose 1,000 ml @ 41 mls/hr DAILY@2200 IV 11/04/24 22:00 11/05/24 21:34 41 MLS/HR Diagnostic Test (Pha) 1 strip Q6HR 11/04/24 22:00 11/06/24 11:31 1 STRIP Insulin Human Regular FOLLOW SLIDING SCALE Q6HR SC 11/05/24 00:00 Dextrose 50 ml UD IV 11/04/24 22:00 Levothyroxine Sodium 50 mcg DAILY IV 11/06/24 10:00 11/06/24 11:29 50 MCG objective General Appearance: Alert, Oriented X3, Cooperative, No acute distress Lungs: Clear to auscultation, Normal air movement Abdomen: Normal bowel sounds, Soft, No tenderness; well-healed midline scar Extremities: No edema laboratory and microbiology Laboratory Tests 11/06/24 04:26 Test 11/06/24 04:26 Range/Units Serum Glucose 102 74-106 mg/dL Problems(with codes): (1) Neuro-endocrine cancer (2) Cholelithiasis (3) Abdominal pain (4) Large bowel obstruction (5) Intractable abdominal pain (6) Biliary colic Prognosis Plan We are still waiting for transfer to higher level of care to [facility] Discuss with surgical consult if NG tube can be discontinued and patient is started on clear liquid diet Overall her prognosis remains guarded Dietary Evaluation Review Comments: Prevent catabolism and muscle wasting TPN per pharmacy meeting 100% of her needs consider TF if blowel obstruction is resolved Reassess PRN Expected Outcomes/Goals: gradual wt gain Plan discussed with: Patient BALA MCGOWAN MD Nov 06, 2024 12:36
--- NOTE | 2024-11-06 21:30 | DVHPN2 ---
Progress Note Date Seen: Nov 06, 2024 Medical Necessity Reason Pt with a Central, PICC or Fol: No Objective vital signs Vital Sign Date Time Temp Pulse Resp B/P (MAP) Pulse Ox O2 Delivery O2 Flow Rate FiO2 11/06/24 18:40 92 17 127/63 11/06/24 17:00 98.4 100 98.4 11/06/24 08:00 Room Air* 0 21 Total Intake and Output 11/05/24 11/05/24 11/06/24 15:00 23:00 07:00 Intake Total 0 ml 100 ml Output Total 10 ml Balance 0 ml 90 ml medications Current Medications Medications Dose Ordered Sig/Nabeel Route Start Time Stop Time Status Last Admin Dose Admin Sodium Chloride 10 ml Q8HR IV 11/03/24 22:00 11/06/24 14:00 10 ML Docusate Sodium 100 mg BIDPRN PRN PO 11/03/24 18:15 Acetaminophen 650 mg Q6HP PRN PO 11/03/24 18:15 Acetaminophen/ Hydrocodone Bitart 1 tab Q4HP PRN PO 11/03/24 18:15 11/04/24 00:40 1 TAB Hydromorphone HCl 0.5 mg Q4HP PRN IV 11/03/24 18:15 11/06/24 18:40 0.5 MG Ondansetron HCl 4 mg Q4HP PRN IV 11/03/24 18:15 11/06/24 18:38 4 MG Enoxaparin Sodium 40 mg DAILY SC 11/04/24 10:00 11/06/24 11:30 40 MG Pantoprazole Sodium 40 mg DAILY IV 11/04/24 10:00 11/06/24 11:30 40 MG Ceftriaxone Sodium 50 ml @ 100 mls/hr DAILY IV 11/03/24 18:15 11/06/24 11:29 100 MLS/HR Amino Acids 0 ml @ 0 mls/hr PER PHARMACY IV 11/04/24 15:00 Amino Acids/ Electrolytes/ Dextrose 1,000 ml @ 41 mls/hr DAILY@2200 IV 11/04/24 22:00 11/05/24 21:34 41 MLS/HR Diagnostic Test (Pha) 1 strip Q6HR 11/04/24 22:00 11/06/24 17:27 1 STRIP Insulin Human Regular FOLLOW SLIDING SCALE Q6HR SC 11/05/24 00:00 Dextrose 50 ml UD IV 11/04/24 22:00 Levothyroxine Sodium 50 mcg DAILY IV 11/06/24 10:00 11/06/24 11:29 50 MCG laboratory and microbiology Laboratory Tests 11/06/24 04:26 Test 11/06/24 04:26 Range/Units Serum Glucose 102 74-106 mg/dL Microbiology Date/Time Source Procedure Growth Status 11/03/24 12:12 Voided Urine Urine Culture - Final Complete Problem List/Assessment/Plan Problem List/Assessment/Plan AFEBRILE VSS ABD SOFT BM + GASTROGRAFIN STUDY SBO RESOLVED DC NG ALLOW CLEAR LIQUIDS Plan discussed with: Patient My Orders My Orders Orders - MOSES MCGOWAN MD Procedure Category Date Status Time Clear Liq Diet DIET 11/07/24 Transmitted Breakfast Dietary Evaluation Review Comments: Prevent catabolism and muscle wasting TPN per pharmacy meeting 100% of her needs consider TF if blowel obstruction is resolved Reassess PRN Expected Outcomes/Goals: gradual wt gain MOSES MCGOWAN MD Nov 06, 2024 21:30
[2024-11-07] VITALS (8 sets, daily range): BP systolic 119–148; BP diastolic 61–82; PULSE 58–71; RESP 16–20; TEMP 36.1; O2SAT 92–95
[2024-11-07 07:31] LABS: Alanine Aminotransferase 38 U/L (7-40); Anion Gap 8 (5-15); BUN/Creatinine Ratio 11.7 (10.0-20.0); Calcium 8.8 mg/dL (8.7-10.4); Chloride 101 mmol/L (98-107); Magnesium 1.8 mg/dL (1.6-2.6); Potassium 3.5 mmol/L (3.5-5.1); Sodium 141 mmol/L (136-145); Total Protein 6.3 g/dL (5.7-8.2)
[2024-11-07 07:32] LABS: Albumin 4.0 g/dL (3.2-4.8); Bilirubin, Total 0.5 mg/dL (0.2-1.0)
[2024-11-07 07:35] LABS: Alkaline Phosphatase 135 U/L (46-116); Blood Urea Nitrogen 7 mg/dL (9-23); Carbon Dioxide 32 mmol/L (20-31); Glucose 109 mg/dL (74-106)
[2024-11-07 07:57] LABS: Hemoglobin 12.4 g/dL (12.2-16.2); Mean Corpuscular Hemoglobin 30.9 pg (28.0-32.0)
[2024-11-07 07:59] LABS: Hematocrit 33.6 % (36.0-46.0); Mean Corpuscular Volume 84.0 fL (80.0-100.0)
[2024-11-07 08:33] LABS: Total Cells Counted 100.0 (100)
--- NOTE | 2024-11-07 09:38 | DVHPN2 ---
Progress Note Date Seen: Nov 07, 2024 Medical Necessity Reason Pt with a Central, PICC or Fol: No Objective vital signs Vital Sign Date Time Temp Pulse Resp B/P (MAP) Pulse Ox O2 Delivery O2 Flow Rate FiO2 11/07/24 08:00 17 Room Air* 0 21 11/07/24 05:45 65 110/68 11/07/24 05:00 97.6 95 97.6 Total Intake and Output 11/06/24 11/06/24 11/07/24 15:00 23:00 07:00 Intake Total 300 ml 0 ml 800 ml Output Total 1000 ml Balance 300 ml -1000 ml 800 ml medications Current Medications Medications Dose Ordered Sig/Nabeel Route Start Time Stop Time Status Last Admin Dose Admin Sodium Chloride 10 ml Q8HR IV 11/03/24 22:00 11/07/24 05:14 10 ML Docusate Sodium 100 mg BIDPRN PRN PO 11/03/24 18:15 Acetaminophen 650 mg Q6HP PRN PO 11/03/24 18:15 Acetaminophen/ Hydrocodone Bitart 1 tab Q4HP PRN PO 11/03/24 18:15 11/04/24 00:40 1 TAB Hydromorphone HCl 0.5 mg Q4HP PRN IV 11/03/24 18:15 11/07/24 05:15 0.5 MG Ondansetron HCl 4 mg Q4HP PRN IV 11/03/24 18:15 11/07/24 05:14 4 MG Enoxaparin Sodium 40 mg DAILY SC 11/04/24 10:00 11/06/24 11:30 40 MG Pantoprazole Sodium 40 mg DAILY IV 11/04/24 10:00 11/06/24 11:30 40 MG Ceftriaxone Sodium 50 ml @ 100 mls/hr DAILY IV 11/03/24 18:15 11/06/24 11:29 100 MLS/HR Amino Acids 0 ml @ 0 mls/hr PER PHARMACY IV 11/04/24 15:00 Amino Acids/ Electrolytes/ Dextrose 1,000 ml @ 41 mls/hr DAILY@2200 IV 11/04/24 22:00 11/06/24 21:18 41 MLS/HR Diagnostic Test (Pha) 1 strip Q6HR 11/04/24 22:00 11/07/24 05:11 1 STRIP Insulin Human Regular FOLLOW SLIDING SCALE Q6HR SC 11/05/24 00:00 Dextrose 50 ml UD IV 11/04/24 22:00 Levothyroxine Sodium 50 mcg DAILY IV 11/06/24 10:00 11/06/24 11:29 50 MCG laboratory and microbiology Laboratory Tests 11/07/24 06:13 Test 11/07/24 06:13 Range/Units Serum Glucose 109 H 74-106 mg/dL Microbiology Date/Time Source Procedure Growth Status 11/03/24 12:12 Voided Urine Urine Culture - Final Complete Problem List/Assessment/Plan Problem List/Assessment/Plan AFEBRILE VSS ABD SOFT BM + GASTROGRAFIN STUDY SBO RESOLVED MARLEN DIET CLEARED FOR DISCHARGE Plan discussed with: Patient My Orders My Orders Orders - MOSES MCGOWAN MD Procedure Category Date Status Time Clear Liq Diet DIET 11/07/24 Transmitted Breakfast Dietary Evaluation Review Comments: Prevent catabolism and muscle wasting TPN per pharmacy meeting 100% of her needs consider TF if blowel obstruction is resolved Reassess PRN Expected Outcomes/Goals: gradual wt gain MOSES MCGOWAN MD Nov 07, 2024 09:38
--- NOTE | 2024-11-07 11:01 | DVHDS2 ---
Discharge Summary Date of Admission Nov 03, 2024 at 18:02 Date of Discharge: Nov 05, 2024 Labs/Diagnostic Data: Laboratory Results Test 11/07/24 06:13 11/07/24 05:13 11/06/24 04:26 11/05/24 05:55 White Blood Count 7.0 10^3/uL (4.4-10.8) Red Blood Count 4.01 10^6/uL (4.0-5.20) Hemoglobin 12.4 g/dL (12.2-16.2) Hematocrit 33.6 % (36.0-46.0) Mean Corpuscular Volume 84.0 fL (80.0-100.0) Mean Corpuscular Hemoglobin 30.9 pg (28.0-32.0) Mean Corpuscular Hemoglobin Concent 36.8 g/dL (32.0-36.0) Red Cell Distribution Width 15.6 % (11.8-14.3) Platelet Count 250 10^3/uL (140-450) Mean Platelet Volume 9.1 fL (6.9-10.8) Neutrophils (%) (Auto) % (37.0-80.0) Lymphocytes (%) (Auto) % (10.0-50.0) Monocytes (%) (Auto) % (0.0-12.0) Basophils (%) (Auto) % (0.0-2.0) Neutrophils # (Auto) 10 ^3/uL (1.6-8.6) Lymphocytes # (Auto) 10 ^3/uL (0.4-5.4) Monocytes # (Auto) 10 ^3/uL (0-1.3) Differential Total Cells Counted 100.0 (100) Neutrophils % (Manual) 74 (37.0-80.0) Band Neutrophils % (Manual) 0 Lymphocytes % (Manual) 20 (10.0-50.0) Monocytes % (Manual) 5 (0-12) Eosinophils % (Manual) 1 (0-7) Basophils % (Manual) 0 (0.0-2.0) Metamyelocytes % (manual) 0 Myelocytes % (Manual) 0 Promyelocytes % (Manual) 0 Blast Cells % (Manual) 0 Reactive Lymphocytes 0 Platelet Estimate Adequate Sodium Level 141 mmol/L (136-145) Potassium Level 3.5 mmol/L (3.5-5.1) Chloride Level 101 mmol/L (98-107) Carbon Dioxide Level 32 mmol/L (20-31) Anion Gap 8 (5-15) Blood Urea Nitrogen 7 mg/dL (9-23) Creatinine 0.60 mg/dL (0.550-1.02) Glomerular Filtration Rate Calc 105 mL/min (>90) BUN/Creatinine Ratio 11.7 (10.0-20.0) Serum Glucose 109 mg/dL (74-106) Calcium Level 8.8 mg/dL (8.7-10.4) Phosphorus Level 2.9 mg/dL (2.4-5.1) Magnesium Level 1.8 mg/dL (1.6-2.6) Total Bilirubin 0.5 mg/dL (0.2-1.0) Aspartate Amino Transferase (AST) 14 U/L (13-40) Alanine Aminotransferase (ALT) 38 U/L (7-40) Alkaline Phosphatase 135 U/L (46-116) Total Protein 6.3 g/dL (5.7-8.2) Albumin 4.0 g/dL (3.2-4.8) POC Glucose 112 mg/dl (70-106) Eosinophils (%) (Auto) 1.1 % (0.0-7.0) Eosinophils # (Auto) 0.1 10 ^3/uL (0-0.8) Basophils # (Auto) 0 10 ^3/uL (0-0.2) Nucleated Red Blood Cells 0.1 % Prothrombin Time 10.9 sec (9.3-11.8) Prothrombin Time INR 1.03 (0.9-1.15) Activated Partial Thromboplast Time 31.2 SEC (24.5-34.5) Triglycerides Level 147 mg/dL (< 150) Test 11/03/24 12:40 11/03/24 12:12 Lipase 37 U/L (12-53) Urine Color Yellow (Yellow) Urine Clarity Ex.turbid (Clear) Urine pH 6.0 (5.0-9.0) Urine Specific [place] 1.030 (1.001-1.035) Urine Protein 1+ (Negative) Urine Ketones Negative (Negative) Urine Blood Negative /uL (Negative) Urine Nitrite Negative (Negative) Urine Bilirubin Negative (Negative) Urine Urobilinogen Normal mg/dL (Negative) Urine Leukocyte Esterase Negative /uL (Negative) Urine RBC 3 /hpf (0 - 4) Urine Microscopic WBC 20 /HPF (0-5) Urine Squamous Epithelial Cells Few /hpf (<5) Urine Bacteria None seen /hpf (None Seen) Urine Hyaline Casts Few /lpf (0 - 2) Urine Mucus Few (None Seen) Urine Glucose Normal mg/dL (Normal) Other Laboratory Tests 11/07/24 06:13 Brief Hx & Hospital Course: Large bowel obstruction, resolved 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 She was seen at [facility] recently Hypokalemia Hospital course: The patient is a 59-year-old female with a history of surgery 3 months ago for carcinomatosis and bowel obstruction and a tumor resection comes back here with the abdominal pain and nausea and vomiting and she was diagnosed with a large bowel obstruction, surgery saw the patient and initially they recommended to transfer the patient to higher level of care to [facility] since she was seen before She was treated conservatively here with an NG tube suction and IV fluids and then a small bowel series follow up was done which showed resolved bowel obstruction She was started on clear liquid diet The NG tube was removed She is tolerating her diet The plan is to discharge the patient home today since she has an appointment with a [facility] tomorrow to follow up on her condition Her labs today look normal with normal electrolytes and therefore continue clear liquid diet and follow up with [facility] tomorrow Condition at Discharge: Stable Final Diagnosis/Problems List Large bowel obstruction, resolved 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 She was seen at [facility] recently Hypokalemia Discharge Disposition: Home SNF Discharge Will this Physician continue t: No Discharge Instruct/Medications Diet: See Comment Diet comment: NPO Activity: No Restrictions, As Tolerated Follow Up/Referral: [facility] facility Medications: See Med Rec Scheduled Levothyroxine Sodium (Levothyroxine Sodium), 1 TAB PO QAM Multiple Vitamin (Multivitamins), 1 TAB PO DAILY, (Reported) Pantoprazole Sodium Sesquihydr (Protonix), 40 MG PO DAILY Rosuvastatin Calcium (Rosuvastatin Calcium), 1 TAB PO DAILY, (Reported) Scheduled PRN Ondansetron Odt 4MG Tab (Zofran Po), 4 MG PO TIDP PRN Discharge Statement: "Patient was advised to return to the ER or call 911 if any headaches, dizziness, shortness of breath, chest pain, abdominal pain, bleeding, fevers, or worsening of medical condition. Patient was counseled about treatment plan, medications, possible side effects, patientverbalized understanding. All questions were answered to the best of my ability. This discharge took greater then 30 minutes in planning, reviewing documentation, counseling the patient, and discussing with other team members." ASSESSMENT ASSESSMENT Assessment Large bowel obstruction dut to neuroendocrine tumore Abdominal carcinomatosis Date of Service: Nov 07, 2024 Billing Provider: RAISA COBURN MD Common Visit Codes: [id number] DISCH DAY >30min RAISA COBURN MD Nov 07, 2024 11:01
[2024-11-07] MEDS ORDERED: HYDR-4902 PO (11:04)
== END 2024-11-07 18:47 | disposition short-term general hospital (02) | DRG 247 ==
LOC: ER 11:50 → OVERFLOW 18:02 → WEST WING 18:07
PROVIDERS: ADMIT Internal Medicine Geriatric Medicine; ATTEND Internal Medicine Geriatric Medicine
PROC: 0D9670Z Drainage of Stomach with Drainage Device, Via Natural or Artificial Opening (ICD-10-PCS; 2024-11-03)
PROC: 05H933Z Insertion of Infusion Device into Right Brachial Vein, Percutaneous Approach (ICD-10-PCS; principal; 2024-11-05)
PROC: B54MZZA Ultrasonography of Right Upper Extremity Veins, Guidance (ICD-10-PCS; 2024-11-05)
DX: K56.609 Unspecified intestinal obstruction, unspecified as to partial versus complete obstruction (principal); C80.0 Disseminated malignant neoplasm, unspecified; K76.0 Fatty (change of) liver, not elsewhere classified; E78.00 Pure hypercholesterolemia, unspecified; E87.6 Hypokalemia; K80.20 Calculus of gallbladder without cholecystitis without obstruction; I10 Essential (primary) hypertension; Z82.49 Family history of ischemic heart disease and other diseases of the circulatory system; Z82.5 Family history of asthma and other chronic lower respiratory diseases; Z79.899 Other long term (current) drug therapy
CPT/HCPCS: 36415; 71045; 74176; 74250; 76705; 80053; 81001; 82962; 83690; 83735; 84100; 84478; 85007; 85025; 85027; 85610; 85730; 87086; 96374; G0378; J2003; J2405; J2470; J3480; J3490

== ENCOUNTER 2024-12-28 18:54 | Emergency (ER) | payer MEDICAID ==
[~2024-12-28] VITALS: Ht 175.3 cm; Wt 59.2 kg
[~2024-12-28 18:54] MED LIST changes: -ADAL40KI2 SC; +HYDR-4902 PO; -METH2.5T PO; +MULT-1018 PO; -PERCOT PO
[2024-12-28 18:57] VITALS: BP 105/68; PULSE 78; RESP 18; TEMP 98.2; O2SAT 95
--- NOTE | 2024-12-28 19:48 | ED.PDOC ---
History of Present Illness HPI Comments 59-year-old female with a history of cancer treatment now is receiving TPN from a PICC line in her left arm. Patient states that the PICC line is occluded today and is requesting that help with that. No vomiting or diarrhea or other complaints Chief Complaint: Tube Replacement Time Seen by MD: 19:15 Primary Care Provider: NONE NEW DR? Allergies: Coded Allergies: NO KNOWN ALLERGIES (Unverified , 07/26/19) Home Meds Active Scripts Hydrocodone-Acetaminophen (Hydrocodone Bitartrate/AC 5-325 mg) 1 Tab Tab, 1 TAB PO Q6HP PRN, #10 TAB Prov:RAISA COBURN MD 11/07/24 Levothyroxine Sodium (Levothyroxine Sodium) 100 Mcg Tab, 1 TAB PO QAM for 14 Days, #14 TAB Prov:PERRY MIRELES RESIDENT 07/29/24 Pantoprazole Sodium Sesquihydr (Protonix) 40 Mg Tab, 40 MG PO DAILY for 30 Days, #30 TAB 1 Refill Prov:JULIO BLOUNT MD 07/29/24 Ondansetron Odt 4MG Tab (ZOFRAN PO) 4 Mg Tb, 4 MG PO TIDP PRN for 15 Days, #45 TAB ODT TAB-DISSOLVE IN MOUTH, THEN SWALLOW Prov:JULIO BLOUNT MD 07/29/24 Reported Medications Multiple Vitamin (Multivitamins) Tab, 1 TAB PO DAILY, #90 TAB 3 Refills 11/03/24 Rosuvastatin Calcium (Rosuvastatin Calcium) 20 Mg Tab, 1 TAB PO DAILY 07/19/24 Mode of Arrival: Ambulatory Severity: Moderate Timing: Hours Duration: Since onset Past Medical History PAST MEDICAL HISTORY: Cancer, Gallstones, High Lipids, Thyroid 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 Family History Family History: Family hx of Cancer Social History Smoker: Non-Smoker Alcohol: Denies ETOH Use Drugs: Denies Drug Use Lives In: Home Cardiovascular: reports: others (Occluded PICC line left arm) All Other Systems: Reviewed and Negative Physical Exam General Appearance: Mild Distress HEENT: Normal ENT Inspection, Pharynx Normal, TMs Normal Neck: Full Range of Motion, Non-Tender, Normal, Normal Inspection Respiratory: Chest Non-Tender, Lungs Clear, No Accessory Muscle Use, No Respiratory Distress, Normal Breath Sounds Cardiovascular: No Edema, No JVD, No Murmur, No Gallop, Normal Peripheral Pulses, Regular Rate/Rhythm Breast Exam: Deferred Gastrointestinal: No Organomegaly, Non Tender, No Pulsatile Mass, Normal Bowel Sounds, Soft Genitalia: Deferred Pelvic: Deferred Rectal: Deferred Extremities: No calf tenderness, Normal capillary refill, Normal inspection, Normal range of motion, Non-tender, No pedal edema, Other (Left arm PICC line not flushing) Musculoskeletal : Apperance: Normal Neurologic: Alert, edge grinder machine II-XII nml as Tested, No Motor Deficits, Normal Affect, Normal Mood, No Sensory Deficits Cerebellar Function: Normal Reflexes: Normal Skin: Dry, Normal Color, Warm Lymphatic: No Adenopathy Was a procedure done? Was a procedure done?: No Differential Dx Considerations may include: Differential diagnosis includes but not limited to: Cellulitis, abscess, blood clot, dehydration and others X-Ray, Labs, Meds, VS Vital Signs Date Time Temp Pulse Resp B/P (MAP) Pulse Ox O2 Delivery O2 Flow Rate FiO2 12/28/24 18:57 98.2 78 18 105/68 95 98.2 Time of 1ST Reevaluation: 19:47 Reevaluation 1ST: Unchanged Patient Education/Counseling: Diagnosis, Treatment Family Education/Counseling: No Family Present SEPSIS Sepsis Screen Date sepsis recognized/suspect: Dec 28, 2024 Time Sepsis recognized/suspect: 1856 Recent Procedure: No On Antibiotic Therapy: No Respiratory Rate >20: No Heart Rate >90: No Temp<36 C (96.8 F) or >38.3 C: No SBP <90 or MAP <65 mmHG: No New Acute Mental Status Change: No Is the patient on CPAP, BIPAP,: No Vital Signs Date Time Temp Pulse Resp B/P (MAP) Pulse Ox O2 Delivery O2 Flow Rate FiO2 12/28/24 18:57 98.2 78 18 105/68 95 98.2 Departure 1 Departure Time of Disposition: 19:48 Impression: Primary Impression: Occluded PICC line Disposition: 01 HOME / SELF CARE / HOMELESS Condition: Stable Additional Instructions: Follow up tomorrow with PICC line nurse Return to the Emergency Department for any worsening symptoms or concerns Discharged With: Self, Relative Critical Care Note Critical Care Time?: No Stability Stability form required: No Heart Score Heart Score: Heart Score Response (Comments) Value History N/A 0 EKG N/A 0 Age N/A 0 Risk Factors N/A 0 Troponin N/A 0 Total 0 RAJ MURRAY MD Dec 28, 2024 19:48
== END 2024-12-28 19:48 | disposition left against medical advice (07) ==
LOC: ER 18:54
DX: T82.594A Other mechanical complication of infusion catheter, initial encounter (principal); Z79.890 Hormone replacement therapy; Z79.899 Other long term (current) drug therapy; Z85.850 Personal history of malignant neoplasm of thyroid; Y71.2 Prosthetic and other implants, materials and accessory cardiovascular devices associated with adverse incidents

== ENCOUNTER 2024-12-29 10:58 | Emergency (ER) | payer MEDICAID ==
[~2024-12-29] VITALS: Ht 175.3 cm; Wt 59.0 kg
--- NOTE | 2024-12-29 12:00 | ED.PDOC ---
History of Present Illness HPI Comments 59-year-old female presents to the ER in a wheelchair being pushed by daughter and prior medical history of cancer: Surgical history of colostomy bag in place and then chief complaint of tube replacement. Patient reports on needing a PICC line replacement due from the PICC not flushing yesterday. Patient states on the nurse not being able to put TPN bag in place, do from the line not flushing. Patient notes that the home nurse did redress the PICC line yesterday. Denies chills, fever, N/V/D, SOB, CP. No other associated symptoms, modifiers, recent injuries or sick contacts present at this time. Chief Complaint: Tube Replacement Time Seen by MD: 12:00 Primary Care Provider: MERE WILCOX DR? Reviewed Notes: Nurses Notes, Medications, Allergies Allergies: Coded Allergies: NO KNOWN ALLERGIES (Unverified , 07/26/19) Home Meds Active Scripts Hydrocodone-Acetaminophen (Hydrocodone Bitartrate/AC 5-325 mg) 1 Tab Tab, 1 TAB PO Q6HP PRN, #10 TAB Prov:RAISA COBURN MD 11/07/24 Levothyroxine Sodium (Levothyroxine Sodium) 100 Mcg Tab, 1 TAB PO QAM for 14 Days, #14 TAB Prov:PERRY MIRELES RESIDENT 07/29/24 Pantoprazole Sodium Sesquihydr (Protonix) 40 Mg Tab, 40 MG PO DAILY for 30 Days, #30 TAB 1 Refill Prov:JULIO BLOUNT MD 07/29/24 Ondansetron Odt 4MG Tab (ZOFRAN PO) 4 Mg Tb, 4 MG PO TIDP PRN for 15 Days, #45 TAB ODT TAB-DISSOLVE IN MOUTH, THEN SWALLOW Prov:JULIO BLOUNT MD 07/29/24 Reported Medications Multiple Vitamin (Multivitamins) Tab, 1 TAB PO DAILY, #90 TAB 3 Refills 11/03/24 Rosuvastatin Calcium (Rosuvastatin Calcium) 20 Mg Tab, 1 TAB PO DAILY 07/19/24 Information Source: Patient Mode of Arrival: Ambulatory Severity: Moderate Timing: Hours Duration: Since onset, Hours Prehospital treatment: None Past Medical History PAST MEDICAL HISTORY: Cancer, Gallstones, High Lipids, Thyroid Surgical History (Other): Colostomy bag in place 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 Family History Family History: Reviewed,noncontributory to illness, Unknown Social History Smoker: Non-Smoker Alcohol: Denies ETOH Use Drugs: Denies Drug Use Lives In: Home Constitutional: reports: others (PICC line notflushing); denies: chills, diaphoresis, fatigue, fever, malaise, sweats, weakness EENTM: denies: blurred vision, double vision, ear bleeding, ear discharge, ear drainage, ear pain, ear ringing, eye pain, eye redness, hearing loss, mouth pain, mouth swelling, nasal discharge, nose bleeding, nose congestion, nose pain, photophobia, tearing, throat pain, throat swelling, voice changes, others Respiratory: denies: cough, hemoptysis, orthopnea, SOB at rest, shortness of breath, SOB with excertion, stridor, wheezing, others Cardiovascular: denies: chest pain, dizzy spells, diaphoresis, Dyspnea on exertion, edema, irregular heart beat, left arm pain, lightheadedness, palpitations, PND, syncope, others Gastrointestinal: denies: abdomen distended, abdominal pain, blood streaked bowels, constipated, diarrhea, dysphagia, difficulty swallowing, hematemesis, melena, nausea, poor appetite, poor fluid intake, rectal bleeding, rectal pain, vomiting, others Genitourinary: denies: abnormal vagina bleeding, burning, dyspareunia, dysuria, flank pain, frequency, hematuria, incontinence, pain, , vagina discharge, urgency, others Neurological: denies: dizziness, fainting, headache, left sided numbness, left sided weakness, numbness, paresthesia, pre-existing deficit, right sided numbness, right sided weakness, seizure, speech problems, tingling, tremors, weakness, others Musculoskeletal: denies: back pain, gout, joint pain, joint swelling, muscle pain, muscle stiffness, neck pain, others Integumetry: denies: bruises, change in color, change in hair/nails, dryness, laceration, lesions, lumps, rash, wounds, others Allergic/Immunocompromised: denies: Difficulty Healing, Frequent Infections, Hives, Itching, others Hematologic/Lymphatic: denies: anemia, blood clots, easy bleeding, easy bruising, swollen glands, others Endocrine: denies: excessive hunger, excessive sweating, excessive thirst, excessive urination, flushing, intolerance to cold, intolerance to heat, unexplained weight gain, unexplained weight loss, others Psychiatric: denies: anxiety, bipolar disorder, depression, hopeless, panic disorder, schizophrenia, sleepless, suicidal, others All Other Systems: Reviewed and Negative Physical Exam General Appearance: No Apparent Distress, Normal HEENT: Normal ENT Inspection, Pharynx Normal, TMs Normal Neck: Full Range of Motion, Non-Tender, Normal, Normal Inspection Respiratory: Chest Non-Tender, Lungs Clear, No Accessory Muscle Use, No Respiratory Distress, Normal Breath Sounds Cardiovascular: No Edema, No JVD, No Murmur, No Gallop, Normal Peripheral Pulses, Regular Rate/Rhythm Breast Exam: Deferred Gastrointestinal: No Organomegaly, Non Tender, No Pulsatile Mass, Normal Bowel Sounds, Soft Genitalia: Deferred Pelvic: Deferred Rectal: Deferred Extremities: No calf tenderness, Normal capillary refill, Normal inspection, Normal range of motion, Non-tender, No pedal edema Musculoskeletal : Apperance: Normal Neurologic: Alert, cans vacuum tester II-XII nml as Tested, No Motor Deficits, Normal Affect, Normal Mood, No Sensory Deficits Cerebellar Function: Normal Reflexes: Normal Skin: Dry, Normal Color, Warm Lymphatic: No Adenopathy Was a procedure done? Was a procedure done?: No Differential Dx Considerations may include: PICC line malfunction X-Ray, Labs, Meds, VS Vital Signs Date Time Temp Pulse Resp B/P (MAP) Pulse Ox O2 Delivery O2 Flow Rate FiO2 12/29/24 14:20 98.2 76 16 107/70 (82) 93 98.2 12/29/24 10:59 97.7 82 18 101/67 96 97.7 Time of 1ST Reevaluation: 12:30 Reevaluation 1ST: Unchanged Patient Education/Counseling: Diagnosis, Treatment, Prognosis Family Education/Counseling: Diagnosis, Treatment, Prognosis SEPSIS Sepsis Screen Date sepsis recognized/suspect: Dec 29, 2024 Time Sepsis recognized/suspect: 1101 Recent Procedure: No On Antibiotic Therapy: No Respiratory Rate >20: No Heart Rate >90: No Temp<36 C (96.8 F) or >38.3 C: No SBP <90 or MAP <65 mmHG: No New Acute Mental Status Change: No Is the patient on CPAP, BIPAP,: No Physician Orders * Picc Line Consult (12/29/24 11:51) Chest Portable (12/29/24 13:36) Vital Signs Date Time Temp Pulse Resp B/P (MAP) Pulse Ox O2 Delivery O2 Flow Rate FiO2 12/29/24 14:20 98.2 76 16 107/70 (82) 93 98.2 12/29/24 10:59 97.7 82 18 101/67 96 97.7 Departure 1 Departure Time of Disposition: 16:46 (Patient had a PICC line malfunction. PICC line nurse fix the PICC line for us. It is now functioning normally. We will discharge patient home with outpatient follow up) Impression: Primary Impression: Occluded PICC line Qualified Codes: T82.898A - Other specified complication of vascular prosthetic devices, implants and grafts, initial encounter Disposition: HOME / SELF CARE / HOMELESS Condition: Stable Additional Instructions: Your PICC line was adjusted today. Appears to be working well. You should follow up with the regular doctors as needed. Discharged With: Self Critical Care Note Critical Care Time?: No Stability Stability form required: No I personally scribed for RICARDO MURPHY MD ([email or web address]) on 12/29/24 at 12:00. Electronically submitted by Basim Siddiqui ([email or web address]). RICARDO MURPHY MD Dec 29, 2024 12:00
[2024-12-29 14:20] VITALS: BP 107/70; PULSE 76; RESP 16; TEMP 98.2; O2SAT 93
--- NOTE | 2024-12-29 15:26 | DVH ---
XY CHEST PORTABLE, HISTORY: Evaluate PICC line position COMPARISON: XR CHEST 1 VW on DOS: 11/16/24, XR CHEST 1 VW on DOS: 11/16/24, XY CHEST XRAY 1 VIEW on DOS : 11/03/24 XR CHEST 1 VW on DOS: 11/16/24, XR CHEST 1 VW on DOS: 11/16/24, XY CHEST XRAY 1 VIEW on DOS: 11/03/24 TECHNICAL DATA: 1 view of the chest was obtained. FINDINGS: Lines and tubes: Left arm PICC with tip in the RA. Cardiomediastinal silhouette: normal Pulmonary vasculature: normal Lung expansion: normal Lung airspace: normal Lung interstitium: normal Pleura: normal Pneumothorax: no Bones: Unremarkable Other: no IMPRESSION: Left arm PICC with tip in the RA.
== END 2024-12-29 18:23 | disposition home or self-care (01) ==
LOC: ER 10:58
DX: T82.898A Other specified complication of vascular prosthetic devices, implants and grafts, initial encounter (principal); E78.5 Hyperlipidemia, unspecified; E03.9 Hypothyroidism, unspecified; Z45.2 Encounter for adjustment and management of vascular access device; Z79.899 Other long term (current) drug therapy; Z85.850 Personal history of malignant neoplasm of thyroid; Z93.3 Colostomy status; Y71.2 Prosthetic and other implants, materials and accessory cardiovascular devices associated with adverse incidents
CPT/HCPCS: 71045